=== PATIENT | female | born 1945 | race Caucasian/White ===

== ENCOUNTER 2017-05-02 22:44 | Emergency (ER) | payer MEDICARE ==
[~2017-05-02 22:44] MED LIST: Iopamidol 370 76% 100 ML VIAL ONE
[2017-05-02 23:50] LABS: Blood, Urine Negative (Negative); Clarity Slightly Cloudy (Clear); Glucose, Urine (Dipstick) Negative (Negative); Leukocyte Trace (Negative); Nitrite Negative (Negative); Protein, Urine (Dipstick) 30 mg/dL (Neg-Trace); Urobilinogen 0.2 mg/dL (0.2-1.0)
[2017-05-02 23:51] LABS: Bilirubin Negative (Negative)
[2017-05-03 00:18] LABS: #Basophils 0.1 thou/uL (0.0-0.2); #Lymphocytes 0.7 thou/uL (1.20-3.40); #Monocytes 0.6 thou/uL (0.11-0.59); #Neutrophils 8.7 thou/uL (1.40-6.50); %Basophils 0.5 % (0.0-1.0); %Eosinophils 0.5 % (0.0-10.0); %Lymphocytes 6.5 % (21.0-51.0); %Monocytes 5.8 % (0.0-10.0); %Neutrophils 86.8 % (42.0-75.0); Hemoglobin 11.8 g/dL (12.0-16.0); Mean Corpuscular HGB CONC 32.9 g/dL (32.0-36.0); Mean Corpuscular Hemoglobin 31.7 pg (27.0-31.0); Mean Corpuscular Volume 96.4 fl (81.0-99.0); Platelet Count 278 thou/uL (130-400); RBC Distribution Width 12.5 % (11.5-14.5); Red Blood Cell (RBC) Count 3.73 mill/uL (4.20-5.40)
[2017-05-03 00:19] LABS: Bacteria/HPF 2+ HPF (None Seen); RBC/HPF 0-3 HPF (0-3); Squamous Epithelial 0-3 HPF (0-3); Transitional Epithelial 0-3 HPF (0-3)
[2017-05-03 00:30] LABS: ALT (SGPT) 18 U/L (8-55); AST (SGOT) 36 U/L (5-34); Albumin 3.6 g/dL (3.4-4.8); Alkaline Phosphatase 43 U/L (40-150); Anion Gap 15 mmol/L (10-20); BUN (Urea Nitrogen) 26 mg/dL (9.8-20.1); Bilirubin, Total 0.5 mg/dL (0.2-1.2); Calc. Creatinine Clearance 0 mL/min (70-130); Calcium 9.4 mg/dL (7.8-10.44); Carbon Dioxide 22 mmol/L (23-31); Chloride 107 mmol/L (98-107); Estimated GFR-MDRD 53; Glucose 142 mg/dL (83-110); Lipase 36 U/L (8-78); Potassium 4.2 mmol/L (3.5-5.1); Protein, Total 6.6 g/dL (6.0-8.3); Sodium 140 mmol/L (136-145)
[2017-05-03] MEDS ORDERED: cefTRIAXone\\ROCEPHIN 2 GM VIAL ONE (01:49)
--- NOTE | 2017-05-03 09:54 | RAD ---
ABDOMEN: Date: 05-03-17 FINDINGS: A single view of the abdomen was presented. It is a portable upright study and does not show the ent dionna abdomen. No free air is seen. Gas is present in the stomach. From this one study alone one cannot draw any va lid conclusions. See CT report to follow. IMPRESSION: No free air seen. POS: HOME
--- NOTE | 2017-05-03 10:11 | CT ---
PRELIMINARY REPORT/[facility]/EMERGENCY AFTER HOURS PROCEDURE: EXAM: CT Abdomen and Pelvis With Intravenous Contrast EXAM DATE/TIME: Exam ordered 05/03/2017 12:53 AM CLINICAL HISTORY: 72 years old, female; Pain; Abdominal pain; Generalized; Patient HX: Pain across entire abd region x 1 day TECHNIQUE: Axial computed tomography images of the abdomen and pelvis with intravenous contrast. All CT scans a t this facility use one or more dose reduction techniques, viz.: automated exposure control; ma/kV a djustment per patient size (including targeted exams where dose is matched to indication; i.e. head); or iterative reconstruction technique. CONTRAST: 90 mL of ISO 370 administered intravenously. COMPARISON: No relevant prior studies available. FINDINGS: Lower thorax: No acute findings. ABDOMEN: Liver: No pneumatosis or portal/mesenteric venous gas. Unremarkable liver. Gallbladder and bile ducts: Unremarkable. No calcified stones. No ductal dilation. Pancreas: Unremarkable. No mass. No ductal dilation. Spleen: Unremarkable. No splenomegaly. Adrenals: Unremarkable. No mass. Kidneys and ureters: Chronic medical renal disease. No hydronephrosis. Stomach and bowel: Prior right hemicolectomy. High-grade distal small bowel obstruction with transit ion point in the anterior lower abdomen, presumably secondary to adhesion. There is inflammatory thi ckening of the wall of a loop of decompressed small bowel distal to the transition point, consistent with enteritis. Colonic diverticulosis. No diverticulitis. There are multiple small anterior abdomi nal wall hernias containing portions of the small bowel; however, these do not contribute as a cause of obstruction. Mesenteric edema and trace volume ascites in the mesentery associated with the dila jericho small bowel loops proximal to the obstruction can be attributed to high degree of obstruction an d presence of enteritis. Appendix: See above. PELVIS: Bladder: Unremarkable. No mass. Reproductive: Unremarkable as visualized. ABDOMEN and PELVIS: Intraperitoneal space: No pneumoperitoneum or abscess. Bones/joints: No acute fracture. No dislocation. Soft tissues: Unremarkable. Vasculature: See above. Lymph nodes: Unremarkable. No enlarged lymph nodes. IMPRESSION: 1. Prior right hemicolectomy. High-grade distal small bowel obstruction with transition point in the anterior lower abdomen, presumably secondary to adhesion. 2. There is inflammatory thickening of the wall of a loop of decompressed small bowel distal to the transition point, consistent with enteritis. Thank you for allowing us to participate in the care of your patient. Dictated and Authenticated by: Deion Temple MD 05/03/2017 1:24 AM Central Time ([place] \T\ [place]) FINAL REPORT CT ABDOMEN AND PELVIS WITH CONTRAST: Date: 05-03-[address] of the abdomen and pelvis was done using IV contrast only. Axial slices were acquired then sagittal and coronal reconstructions were done. FINDINGS: The lung bases are clear. The major finding on this study is dilation of small bowel consistent with a small bowel obstruction. The patient has had a prior right hemicolectomy. There is dilated small bowel down to a transition point. The possibility of an adhesion should be considered. There are mul tiple small hernias involving the anterior abdominal wall, most of which do have bowel within them, but these do not appear to contribute to the obstruction. One of the loops has somewhat thickened joby wel wall which could raise the question of enteritis. There are some small amounts of free fluid pre sent in the mesentery that are probably secondary to the high grade obstruction. The remaining colon shows no dilation. Diverticulosis without diverticulitis is present. The liver, spleen, pancreas, gallbladder, adrenal glands, and kidneys show no acute changes. The abd ominal aorta is normal in caliber but calcified. Extensive degenerative changes are seen in the spin e which also show scoliosis. IMPRESSION: 1. Findings consistent with a high grade small bowel obstruction. 2. Status post right hemicolectomy. 3. Several small abdominal wall hernias anteriorly, none of which contribute to the obstruction. 4. Some thickening of portions of the small bowel. This could be due to obstruction or enteritis. Findings in agreement with preliminary reading by CAIN. POS: HOME
== END 2017-05-03 02:35 | disposition short-term general hospital (02) ==
LOC: BURERS 22:44
DX: K56.60 Unspecified intestinal obstruction (principal); N39.0 Urinary tract infection, site not specified; D64.9 Anemia, unspecified; E78.5 Hyperlipidemia, unspecified; E11.40 Type 2 diabetes mellitus with diabetic neuropathy, unspecified; G89.29 Other chronic pain; I10 Essential (primary) hypertension; Z79.82 Long term (current) use of aspirin; Z79.899 Other long term (current) drug therapy
CPT/HCPCS: 36415; 51701; 74000; 74177; 80053; 81003; 81015; 83605; 83690; 85025; 87077; 87086; 87186; 96361; 96365; 96375; 96376; A4216; A4353; J0696; J2270

== ENCOUNTER 2017-06-03 16:57 | Inpatient (IN) | payer MEDICARE ==
[2017-06-03] MEDS: traMADol HCl 50 MG TAB PO PRN (23:29)
[2017-06-04] MEDS ORDERED: clonazePAM 0.5 MG TAB PO PRN (00:52)
[2017-06-04] MEDS: metFORMIN 500 MG TAB PO SCH ×3 (08:33→17:09)
[2017-06-04] MEDS: Atorvastatin Calcium 10 MG TAB PO SCH ×3 (08:34→12:45)
[2017-06-04] MEDS: Magnesium Oxide 400 MG TAB PO SCH ×3 (08:35→12:46)
[2017-06-04] MEDS: Multivitamin W/ Minerals 1 TAB PO SCH ×3 (08:35→12:54)
[2017-06-04] MEDS: Lisinopril 10 MG TAB PO SCH ×3 (08:36→12:53)
[2017-06-04] MEDS: Cholecalciferol (Vitamin D3) 400 UNITS TAB PO SCH ×3 (08:36→13:00)
[2017-06-04] MEDS: Pregabalin 50 MG CAP PO SCH ×4 (08:37→21:42)
[2017-06-04] MEDS: Enoxaparin Sodium 40 MG/0.4 ML SYRINGE SC SCH (08:38)
[2017-06-04] MEDS: traMADol HCl 50 MG TAB PO PRN ×2 (08:42→12:41)
--- NOTE | 2017-06-04 17:23 | HP ---
DATE OF ADMISSION: 06/03/2017 PRIMARY CARE PHYSICIAN: Out of town physician. ADMITTING PHYSICIAN: Allyson White M.D. CHIEF COMPLAINT: Inpatient shelter, physical, occupational, and wound therapy. HISTORY OF PRESENT ILLNESS: Ms. Lo is a 72-year-old female with a history of hyperten adolfo, CVA, diabetes mellitus, morbid obesity, and history of colon perforation in 1989, which she un derwent left hemicolectomy and a recent history of colonic obstruction with ulceration and perforati on requiring adhesiolysis and colonic resection of the small intestine. She had a surgery on 05/04 for colon resection under Dr. Knight. The patient developed postoperative confusion, pneumonia, re nal insufficiency, electrolyte imbalance, anemia, Clostridium difficile diarrhea. Her peritoneal cu lture showed polymicrobial nannette where she developed peritoneal abscess that required CT-guided juana alcantare percutaneously. The patient was placed on broad-spectrum antibiotics. She also failed her swa llow study that required placement of G-tube. The patient is severely physically deconditioned and requires physical and occupational therapy. She has a mid-abdominal wound measuring 6 x [address] miguel a serous fluid of about 200 mL, the patient is receiving wound VAC. The patient has signific ant depression, loss of motivation, and helplessness. She refused to participate in physical therap y prior to her transfer. She is being admitted for shelter care, physical, occupational the rapy for her decrease endurance, strength, unsteady gait, poor balance. She is maximum to total ass ist for transfer. PAST MEDICAL HISTORY: 1. Hypertension. 2. History of CVA. 3. Diabetes mellitus. 4. Hypercholesterolemia. 5. Morbid obesity. 6. History of colon resection for colon perforation. 7. Depression. PAST SURGICAL HISTORY: 1. Exploratory laparotomy for perforated diverticulitis. 2. Exploratory laparotomy for lysis of adhesions related to bowel obstruction. 3. Mesh repair of ventral incisional hernia. 4. Mesh removal for wound infection. 5. Bilateral total knee replacement. HOME MEDICATIONS: 1. Lyrica. 2. Furosemide. 3. Tricor. 4. Lisinopril. 5. Atorvastatin. 6. Tramadol. 7. Myrbetriq. 8. Iron and multivitamins. ALLERGIES: No known drug allergies. PERSONAL AND SOCIAL HISTORY: The patient is and has 3 children. She recently moved to [facility] from [place]. She denies alcohol, tobacco, or illicit drug use. FAMILY HISTORY: Noncontributory. REVIEW OF SYSTEMS: GENERAL: Positive for fatigue. Positive for weight loss. Positive for decreased appetite. CARDIOVASCULAR: Negative for chest pain. Negative for palpitation. Positive for lower extremity s welling. PULMONARY: Positive for shortness of breath, requiring oxygen to maintain sats above 94%. Denies c ough, denies tobacco use. GASTROINTESTINAL: Positive for abdominal pain. Positive for mid abdominal wound requiring wound [facility] C. Positive for dysphagia. Positive for diarrhea. Positive for constipation. ENDOCRINE: Negative for polyuria, polydipsia. Positive for heat and cold intolerance. GENITOURINARY: Negative for hematuria. Negative for dysuria. NEUROLOGIC: Positive for global weakness secondary to physical deconditioning related to prolonged hospitalization. Positive for history of stroke in the past. PSYCHIATRIC: Positive for depression. Positive for agitation. Positive for anxiety. Positive for loss of motivation. Positive for insomnia. PHYSICAL EXAMINATION: VITAL SIGNS: Blood pressure of 153/70, pulse of 111, temperature of 98.4, O2 sat 94% at 2 liters. GENERAL: The patient is awake, alert, not in respiratory distress. The patient is morbidly obese. HEENT: Normocephalic, atraumatic. Pupils are equally reactive to light. Dry mucous membrane. Neg ative for tonsillopharyngeal congestion. NECK: Supple. Negative for lymphadenopathy. Negative for JVD. CHEST AND LUNGS: Symmetrical expansion. Clear to auscultation bilaterally. HEART: Tachycardic, regular rate and rhythm. Negative for murmur, rubs, or gallops. ABDOMEN: Slightly distended, positive for mid abdominal wound with wound VAC. Positive for mild te nderness, diffuse. Bowel sounds present in all quadrants. EXTREMITIES: Equal range of motion of both upper and lower extremities. Significant weakness noted on all extremities. Pulses are 2+ and symmetrical. PSYCHIATRIC: Depressed affect. Negative for homicidal or suicidal ideation. NEUROLOGIC: Cannot assess due to significant weakness. LABORATORY DATA: Reviewed. ASSESSMENT: 1. Severe physical deconditioning due to prolonged hospitalization after colon resection and multip le other comorbid conditions. 2. History of small-bowel obstruction with colonic perforation and ulcers, status post adhesiolysis with small-bowel resection. 3. History of peritoneal abscess, status post CT-guided percutaneous drainage, now requiring wound VAC. 4. History of Clostridium difficile enterocolitis, resolved. 5. Chronic disease anemia. 6. Dysphagia, status post G-tube placement. 7. Hypertension. 8. Diabetes mellitus. 9. History of cerebrovascular accident. 10. Morbidly obese. 11. 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 PLAN: 1. Admitted to shelter facility: 2. Referred to PT, OT to evaluate and treat acute physical deconditioning, so the patient can safel y transition to home. 3. Wound Care Team to assist with care and wound status. 4. Dietary consultation to address and improve protein and caloric malnutrition. 5. Reconcile current medication. 6. Deep venous thrombosis prophylaxis. 7. Gastrointestinal prophylaxis. 8. Case management consult to address needs prior to her discharge.
[2017-06-04] MEDS: Acetaminophen 500 MG TAB PO SCH (21:42)
[2017-06-05] MEDS: Enoxaparin Sodium 40 MG/0.4 ML SYRINGE SC SCH (09:45)
[2017-06-05] MEDS: Pregabalin 50 MG CAP PO SCH ×2 (09:58→20:39)
[2017-06-05] MEDS: metFORMIN 500 MG TAB PO SCH ×2 (10:09→17:53)
[2017-06-05] MEDS: Lisinopril 10 MG TAB PO SCH (10:15)
[2017-06-05] MEDS: Atorvastatin Calcium 10 MG TAB PO SCH (10:16)
[2017-06-05] MEDS: Cholecalciferol (Vitamin D3) 400 UNITS TAB PO SCH (11:58)
[2017-06-05] MEDS: Magnesium Oxide 400 MG TAB PO SCH (12:02)
[2017-06-05] MEDS: Multivitamin W/ Minerals 1 TAB PO SCH (12:07)
[2017-06-05 18:54] LABS: Platelet Count 411 thou/uL (130-400)
[2017-06-05 18:58] LABS: Calc. Creatinine Clearance 179 mL/min (70-130); Estimated GFR-MDRD Greater than 90
[2017-06-05] MEDS: Acetaminophen 500 MG TAB PO SCH (20:42)
[2017-06-06 06:24] LABS: #Basophils 0.1 thou/uL (0.0-0.2); #Eosinphils 0.2 thou/uL (0.0-0.7); #Lymphocytes 1.6 thou/uL (1.20-3.40); #Monocytes 0.7 thou/uL (0.11-0.59); #Neutrophils 8.2 thou/uL (1.40-6.50); %Basophils 0.7 % (0.0-1.0); %Eosinophils 1.8 % (0.0-10.0); %Lymphocytes 14.6 % (21.0-51.0); %Monocytes 6.3 % (0.0-10.0); %Neutrophils 76.6 % (42.0-75.0); Mean Corpuscular HGB CONC 34.3 g/dL (32.0-36.0); Mean Corpuscular Hemoglobin 30.2 pg (27.0-31.0); Mean Corpuscular Volume 88.3 fl (81.0-99.0); Mean Platelet Volume 6.2 fL (7.4-10.4); Platelet Count 447 thou/uL (130-400); RBC Distribution Width 14.5 % (11.5-14.5); Red Blood Cell (RBC) Count 3.32 mill/uL (4.20-5.40); White Blood Cell (WBC) Count 10.7 thou/uL (4.8-10.8)
[2017-06-06 06:33] LABS: ALT (SGPT) 16 U/L (8-55); AST (SGOT) 19 U/L (5-34); Albumin 2.7 g/dL (3.4-4.8); Alkaline Phosphatase 127 U/L (40-150); Anion Gap 13 mmol/L (10-20); BUN (Urea Nitrogen) 13 mg/dL (9.8-20.1); Bilirubin, Total 0.4 mg/dL (0.2-1.2); Calc. Creatinine Clearance 166 mL/min (70-130); Calcium 9.8 mg/dL (7.8-10.44); Carbon Dioxide 29 mmol/L (23-31); Chloride 98 mmol/L (98-107); Estimated GFR-MDRD Greater than 90; Globulin 4.2 g/dL (2.4-3.5); Glucose 131 mg/dL (83-110); Potassium 4.7 mmol/L (3.5-5.1); Protein, Total 6.9 g/dL (6.0-8.3); Sodium 135 mmol/L (136-145)
[2017-06-06] MEDS: Pregabalin 50 MG CAP PO SCH ×2 (08:32→20:40)
[2017-06-06] MEDS: Lisinopril 10 MG TAB PO SCH (08:38)
--- NOTE | 2017-06-06 08:39 | CT ---
PRELIMINARY REPORT/[facility]/EMERGENCY AFTER HOURS PROCEDURE: EXAM: CT Abdomen and Pelvis With Intravenous Contrast EXAM DATE/TIME: Exam ordered 06/06/2017 4:11 AM CLINICAL HISTORY: 72 years old, female; Pain; Abdominal pain; Prior surgery; Surgery type: Bowel resection small, dangelo ia repair 05-31-17 TECHNIQUE: Axial computed tomography images of the abdomen and pelvis with intravenous contrast. COMPARISON: CT Abdomen Pelvis W Con 05/03/2017 12:53:19 AM FINDINGS: Lower thorax: There is consolidation of the LEFT lung base. ABDOMEN: Liver: There are no focal liver lesions present. Gallbladder and bile ducts: The gallbladder is normal. There is no evidence of biliary ductal dilati on. No calcified stones. Pancreas: The pancreas is normal. No ductal dilation. Spleen: The spleen demonstrates punctate calcifications, consistent with remote granulomatous organi sm exposure. Adrenals: The adrenal glands are normal. Kidneys and ureters: There may be a 2.5 cm mass extending from the interpolar region of the RIGHT ki dney, incompletely evaluated. The left kidney is normal. No hydronephrosis. Stomach and bowel: There is distention of the colon which is nonspecific but may represent colonic i leus. A gastrostomy tube is present within the stomach. Patient is post partial bowel resection. There is diffuse colonic dilatation No mucosal thickening. Appendix: No findings to suggest acute appendicitis. PELVIS: Bladder: The bladder is normal. Reproductive: The uterus is normal. ABDOMEN and PELVIS: Intraperitoneal space: Normal. No free air. No significant fluid collection. Bones/joints: No acute fracture. No dislocation. Soft tissues: Normal. Vasculature: Normal. No abdominal aortic aneurysm. Lymph nodes: Normal. No enlarged lymph nodes. IMPRESSION: 1. There is distention of the colon which is nonspecific but may represent colonic ileus. 2. There may be a 2.5 cm mass extending from the interpolar region of the RIGHT kidney, incompletely evaluated. 3. LEFT lower lobe consolidation may represent atelectasis or pneumonia in the appropriate clinical setting. Thank you for allowing us to participate in the care of your patient. Dictated and Authenticated by: Steven Laughlin MD 06/06/2017 5:02 AM Central Time ([place] \T\ [place]) FINAL REPORT CT ABDOMEN AND PELVIS WITH CONTRAST: Date: 06/06/17 Comparison is made with prior CT studies dated 05/26/17 and 05/20/17 done at [facility]. Axial s lices were acquired after giving IV contrast. Oral contrast was withheld. Coronal reconstructions we re done. FINDINGS: There is some dependent atelectasis in the right lung base. In the left lung base, there is a consol idation. I am presuming this to be pneumonia, though collapsed lung is a possibility. This is a new finding since the prior scan. The liver, spleen, pancreas, gallbladder, adrenal glands, and abdominal aorta show no change since t he recent scans. Of interest in the right kidney is a 3.6 cm widened area that is slightly rounded a nd hyperdense located in the mid portion of this kidney. On the prior two scans, one can see a littl e widening here, but it is more prominent today. The patient has had a recent renal ultrasound that only showed a small cyst in the mid portion of the right kidney. Perhaps it has become hemorrhagic. This might be worth further follow-up depending on the clinical history. The area is not seen well d ue to streak artifact. There is some generalized colonic distention. The overall pattern is a little more in keeping with a n ileus than obstruction. Some loops of small bowel show some slight dilation and air fluid levels a s well. No free air was noted. The fluid collection in the left flank at about the level of the lower pole of the left kidney has d efinitely decreased in size. It now measures about 3.9 cm in diameter. The thin, oblong fluid collec tion seen in the right anterior part of the abdominal cavity previously has resolved with only a few inflammatory changes left in the region. CT of the pelvis showed no pelvic masses, fluid collections, or other acute changes. IMPRESSION: 1. Findings suggestive of a left lower lobe pneumonia, a new finding in the last 2 weeks. 2. Mild generalized colonic distention which is not organized and is more likely an ileus than an o bstruction. 3. 3.8 cm fluid collection in the left flank that has definitely decreased in size since the CT. The collection in the right anterior abdomen has essentially resolved in the interval. 4. Prominent mass-like area in the middle third of the right kidney that is somewhat hyperdense. Si nce a recent renal ultrasound showed a cyst here, I have to wonder if it is now hemorrhagic. Neverth eless, the finding does cath the eye and is larger than what was described on the ultrasound. I yossi kasper an elective ultrasound of this kidney might be fruitful and should be done. Findings in substantial agreement with preliminary reading by [place]. POS: HOME
[2017-06-06] MEDS: FENOFIBRATE NANOCRYSTALLIZED 145 MG PO SCH (09:00)
[2017-06-06] MEDS: B12 PO SCH (09:00)
[2017-06-06] MEDS: IRON CARB PO SCH (09:00)
[2017-06-06] MEDS: GLUC PO SCH (09:00)
[2017-06-06] MEDS: Mirabegron [Myrbetriq] 50 MG PO SCH (09:00)
[2017-06-06] MEDS: DSS PO SCH (09:00)
[2017-06-06] MEDS: BUPROPION HCL 75 MG PO SCH ×2 (09:00→20:38)
[2017-06-06] MEDS: [UNRECOGNIZED DRUG - OTHER] PO SCH (09:00)
[2017-06-06] MEDS: traMADol HCl 50 MG TAB PO PRN (09:44)
[2017-06-06] MEDS: Enoxaparin Sodium 40 MG/0.4 ML SYRINGE SC SCH (09:45)
[2017-06-06] MEDS: Atorvastatin Calcium 10 MG TAB PO SCH (10:15)
[2017-06-06] MEDS: Cholecalciferol (Vitamin D3) 400 UNITS TAB PO SCH (10:16)
[2017-06-06 10:44] VITALS: BMI 40.2
[2017-06-06] MEDS ORDERED: VANCOMYCIN IVPB PRN (11:44)
[2017-06-06] MEDS: Multivitamin W/ Minerals 1 TAB PO SCH (12:08)
[2017-06-06] MEDS: Magnesium Oxide 400 MG TAB PO SCH (12:08)
[2017-06-06] MEDS: Vancomycin HCl 1 GM in Sodium Chloride 0.9% 250 ML 250 ML IVPB SCH (12:43)
[2017-06-06] MEDS: Meropenem 1 GM in Sodium Chloride 0.9% 100 ML IVPB SCH ×2 (15:24→22:16)
[2017-06-06] MEDS: Acetaminophen 500 MG TAB PO SCH (20:40)
[2017-06-07] MEDS: Vancomycin HCl 1 GM in Sodium Chloride 0.9% 250 ML 250 ML IVPB SCH (04:53)
[2017-06-07] MEDS: BUPROPION HCL 75 MG PO SCH ×3 (05:05→08:46)
[2017-06-07] MEDS: [UNRECOGNIZED DRUG - OTHER] PO SCH ×3 (05:05→11:09)
[2017-06-07] MEDS: GLUC PO SCH ×3 (05:05→11:09)
[2017-06-07] MEDS: IRON CARB PO SCH ×3 (05:05→11:09)
[2017-06-07] MEDS: FENOFIBRATE NANOCRYSTALLIZED 145 MG PO SCH ×3 (05:05→08:53)
[2017-06-07] MEDS: DSS PO SCH ×3 (05:05→11:09)
[2017-06-07] MEDS: B12 PO SCH ×3 (05:05→11:09)
[2017-06-07] MEDS: Mirabegron [Myrbetriq] 50 MG PO SCH ×3 (05:06→08:51)
[2017-06-07] MEDS: Meropenem 1 GM in Sodium Chloride 0.9% 100 ML IVPB SCH ×3 (06:17→21:25)
[2017-06-07] MEDS: Pregabalin 50 MG CAP PO SCH ×2 (08:43→20:32)
[2017-06-07] MEDS: Cholecalciferol (Vitamin D3) 400 UNITS TAB PO SCH (08:44)
[2017-06-07] MEDS: Multivitamin W/ Minerals 1 TAB PO SCH (08:44)
[2017-06-07] MEDS: Atorvastatin Calcium 10 MG TAB PO SCH (08:45)
[2017-06-07] MEDS: Lisinopril 10 MG TAB PO SCH (08:45)
[2017-06-07] MEDS: Magnesium Oxide 400 MG TAB PO SCH (08:45)
[2017-06-07] MEDS: Enoxaparin Sodium 40 MG/0.4 ML SYRINGE SC SCH (08:46)
[2017-06-07] MEDS ORDERED: FLU VACC QS2017-18 36 mo. & older 0.5 ML SYRINGE IM ONE (13:45)
[2017-06-07] MEDS: traMADol HCl 50 MG TAB PO PRN (13:46)
[2017-06-07] MEDS ORDERED: Vancomycin HCl 1 GM in Sodium Chloride 0.9% 250 ML 250 ML IVPB SCH (17:00)
[2017-06-07] MEDS ORDERED: Acetaminophen 500 MG TAB ONE (20:23)
[2017-06-07] MEDS: Acetaminophen 500 MG TAB PO SCH (20:34)
[2017-06-07] MEDS: Saccharomyces boulardii 250 MG CAP PO SCH (20:34)
[2017-06-07] MEDS: Vancomycin HCl 25 MG/ML Oral PO SCH (20:36)
[2017-06-08] MEDS: traMADol HCl 50 MG TAB PO PRN ×2 (05:30→14:19)
[2017-06-08] MEDS: Meropenem 1 GM in Sodium Chloride 0.9% 100 ML IVPB SCH ×3 (05:32→21:21)
[2017-06-08] MEDS ORDERED: metroNIDAZOLE 250 MG TAB PO SCH (09:00)
[2017-06-08] MEDS: Lisinopril 10 MG TAB PO SCH (10:22)
[2017-06-08] MEDS: Cholecalciferol (Vitamin D3) 400 UNITS TAB PO SCH (10:22)
[2017-06-08] MEDS: Atorvastatin Calcium 10 MG TAB PO SCH (10:22)
[2017-06-08] MEDS: Ferrous Sulfate 325 MG TAB PO SCH (10:23)
[2017-06-08] MEDS: Multivitamin W/ Minerals 1 TAB PO SCH (10:23)
[2017-06-08] MEDS: Magnesium Oxide 400 MG TAB PO SCH (10:23)
[2017-06-08] MEDS: Saccharomyces boulardii 250 MG CAP PO SCH ×2 (10:23→21:04)
[2017-06-08] MEDS: Mirabegron [Myrbetriq] 50 MG PO SCH (10:24)
[2017-06-08] MEDS: FENOFIBRATE NANOCRYSTALLIZED 145 MG PO SCH (10:25)
[2017-06-08] MEDS: Pregabalin 50 MG CAP PO SCH ×2 (10:27→21:02)
[2017-06-08] MEDS: Vancomycin HCl 25 MG/ML Oral PO SCH ×4 (10:28→21:10)
[2017-06-08] MEDS: Enoxaparin Sodium 40 MG/0.4 ML SYRINGE SC SCH (10:28)
[2017-06-08] MEDS: clonazePAM 0.5 MG TAB PO PRN (10:28)
[2017-06-08] MEDS: Acetaminophen 500 MG TAB PO SCH (21:02)
[2017-06-09] MEDS: Meropenem 1 GM in Sodium Chloride 0.9% 100 ML IVPB SCH ×3 (05:33→21:53)
[2017-06-09] MEDS: Pregabalin 50 MG CAP PO SCH ×2 (08:07→20:49)
[2017-06-09] MEDS: clonazePAM 0.5 MG TAB PO PRN (08:08)
[2017-06-09] MEDS: Vancomycin HCl 25 MG/ML Oral PO SCH ×4 (08:49→21:52)
[2017-06-09] MEDS: Enoxaparin Sodium 40 MG/0.4 ML SYRINGE SC SCH (08:51)
[2017-06-09] MEDS: Lisinopril 10 MG TAB PO SCH (08:53)
[2017-06-09] MEDS: Atorvastatin Calcium 10 MG TAB PO SCH (08:54)
[2017-06-09] MEDS: Mirabegron [Myrbetriq] 50 MG PO SCH (09:02)
[2017-06-09] MEDS: Magnesium Oxide 400 MG TAB PO SCH (09:02)
[2017-06-09] MEDS: FENOFIBRATE NANOCRYSTALLIZED 145 MG PO SCH (09:02)
[2017-06-09] MEDS: Multivitamin W/ Minerals 1 TAB PO SCH (09:02)
[2017-06-09] MEDS: Ferrous Sulfate 325 MG TAB PO SCH (09:02)
[2017-06-09] MEDS: Saccharomyces boulardii 250 MG CAP PO SCH ×2 (09:02→20:49)
[2017-06-09] MEDS: Cholecalciferol (Vitamin D3) 400 UNITS TAB PO SCH (09:02)
[2017-06-09] MEDS: Acetaminophen 500 MG TAB PO SCH (20:48)
[2017-06-10] MEDS: Meropenem 1 GM in Sodium Chloride 0.9% 100 ML IVPB SCH ×3 (05:47→21:09)
[2017-06-10] MEDS: Atorvastatin Calcium 10 MG TAB PO SCH (08:47)
[2017-06-10] MEDS: Multivitamin W/ Minerals 1 TAB PO SCH (08:47)
[2017-06-10] MEDS: Lisinopril 10 MG TAB PO SCH (08:47)
[2017-06-10] MEDS: Magnesium Oxide 400 MG TAB PO SCH (08:48)
[2017-06-10] MEDS: Saccharomyces boulardii 250 MG CAP PO SCH ×2 (08:48→21:08)
[2017-06-10] MEDS: Pregabalin 50 MG CAP PO SCH ×2 (08:48→21:08)
[2017-06-10] MEDS: Ferrous Sulfate 325 MG TAB PO SCH (08:48)
[2017-06-10] MEDS: Cholecalciferol (Vitamin D3) 400 UNITS TAB PO SCH (08:50)
[2017-06-10] MEDS: Vancomycin HCl 25 MG/ML Oral PO SCH ×4 (08:51→21:09)
[2017-06-10] MEDS: FENOFIBRATE NANOCRYSTALLIZED 145 MG PO SCH (08:58)
[2017-06-10] MEDS: Enoxaparin Sodium 40 MG/0.4 ML SYRINGE SC SCH (08:58)
[2017-06-10] MEDS: Mirabegron [Myrbetriq] 50 MG PO SCH (08:59)
[2017-06-10] MEDS: Acetaminophen 500 MG TAB PO SCH ×3 (11:00→21:12)
[2017-06-10 13:31] LABS: #Basophils 0.1 thou/uL (0.0-0.2); #Eosinphils 0.1 thou/uL (0.0-0.7); #Lymphocytes 1.7 thou/uL (1.20-3.40); #Monocytes 0.6 thou/uL (0.11-0.59); #Neutrophils 5.8 thou/uL (1.40-6.50); %Basophils 0.7 % (0.0-1.0); %Eosinophils 1.7 % (0.0-10.0); %Lymphocytes 20.2 % (21.0-51.0); %Monocytes 7.7 % (0.0-10.0); %Neutrophils 69.7 % (42.0-75.0); Hemoglobin 10.4 g/dL (12.0-16.0); Mean Corpuscular HGB CONC 32.8 g/dL (32.0-36.0); Mean Corpuscular Hemoglobin 29.8 pg (27.0-31.0); Mean Corpuscular Volume 90.9 fl (81.0-99.0); Mean Platelet Volume 6.2 fL (7.4-10.4); Platelet Count 487 thou/uL (130-400); RBC Distribution Width 15.8 % (11.5-14.5); Red Blood Cell (RBC) Count 3.49 mill/uL (4.20-5.40); White Blood Cell (WBC) Count 8.3 thou/uL (4.8-10.8)
[2017-06-10 13:32] LABS: ALT (SGPT) 13 U/L (8-55); AST (SGOT) 16 U/L (5-34); Albumin 2.9 g/dL (3.4-4.8); Alkaline Phosphatase 87 U/L (40-150); Anion Gap 15 mmol/L (10-20); BUN (Urea Nitrogen) 22 mg/dL (9.8-20.1); Bilirubin, Total 0.4 mg/dL (0.2-1.2); Calc. Creatinine Clearance 163 mL/min (70-130); Calcium 9.9 mg/dL (7.8-10.44); Carbon Dioxide 26 mmol/L (23-31); Chloride 98 mmol/L (98-107); Estimated GFR-MDRD Greater than 90; Globulin 4.4 g/dL (2.4-3.5); Glucose 147 mg/dL (83-110); Protein, Total 7.3 g/dL (6.0-8.3); Sodium 134 mmol/L (136-145)
[2017-06-11] MEDS: Acetaminophen 500 MG TAB PO SCH ×4 (03:24→21:13)
[2017-06-11] MEDS ORDERED: Meropenem 500 MG VIAL ONE (05:55)
[2017-06-11] MEDS: Meropenem 1 GM in Sodium Chloride 0.9% 100 ML IVPB SCH ×3 (06:07→21:15)
[2017-06-11] MEDS: Mirabegron [Myrbetriq] 50 MG PO SCH (08:59)
[2017-06-11] MEDS: FENOFIBRATE NANOCRYSTALLIZED 145 MG PO SCH (09:00)
[2017-06-11] MEDS: Enoxaparin Sodium 40 MG/0.4 ML SYRINGE SC SCH (09:02)
[2017-06-11] MEDS: Atorvastatin Calcium 10 MG TAB PO SCH (09:03)
[2017-06-11] MEDS: Magnesium Oxide 400 MG TAB PO SCH (09:03)
[2017-06-11] MEDS: Cholecalciferol (Vitamin D3) 400 UNITS TAB PO SCH (09:03)
[2017-06-11] MEDS: Lisinopril 10 MG TAB PO SCH (09:04)
[2017-06-11] MEDS: Pregabalin 50 MG CAP PO SCH ×2 (09:04→21:14)
[2017-06-11] MEDS: Saccharomyces boulardii 250 MG CAP PO SCH ×2 (09:04→21:13)
[2017-06-11] MEDS: Multivitamin W/ Minerals 1 TAB PO SCH (09:04)
[2017-06-11] MEDS: Vancomycin HCl 25 MG/ML Oral PO SCH ×4 (09:05→21:15)
[2017-06-11] MEDS: Ferrous Sulfate 325 MG TAB PO SCH (09:05)
[2017-06-11] MEDS ORDERED: Oxymetazoline HCl 0.05% ( 15 ML ) ONE (11:14)
[2017-06-11] MEDS ORDERED: Oxymetazoline HCl 0.05% ( 15 ML ) NASAL PRN (11:16)
[2017-06-11 11:40] LABS: #Basophils 0.1 thou/uL (0.0-0.2); #Eosinphils 0.1 thou/uL (0.0-0.7); #Lymphocytes 1.5 thou/uL (1.20-3.40); #Monocytes 0.6 thou/uL (0.11-0.59); #Neutrophils 3.9 thou/uL (1.40-6.50); %Basophils 0.9 % (0.0-1.0); %Eosinophils 1.9 % (0.0-10.0); %Lymphocytes 24.1 % (21.0-51.0); %Monocytes 9.8 % (0.0-10.0); %Neutrophils 63.2 % (42.0-75.0); Hemoglobin 10.2 g/dL (12.0-16.0); Mean Corpuscular HGB CONC 31.4 g/dL (32.0-36.0); Mean Corpuscular Hemoglobin 29.1 pg (27.0-31.0); Mean Corpuscular Volume 92.6 fl (81.0-99.0); Mean Platelet Volume 6.6 fL (7.4-10.4); Platelet Count 417 thou/uL (130-400); RBC Distribution Width 15.6 % (11.5-14.5); Red Blood Cell (RBC) Count 3.49 mill/uL (4.20-5.40); White Blood Cell (WBC) Count 6.2 thou/uL (4.8-10.8)
[2017-06-12] MEDS: Acetaminophen 500 MG TAB PO SCH ×4 (04:40→21:01)
[2017-06-12] MEDS: Meropenem 1 GM in Sodium Chloride 0.9% 100 ML IVPB SCH ×3 (05:54→21:23)
[2017-06-12] MEDS: Pregabalin 50 MG CAP PO SCH ×2 (08:29→21:02)
[2017-06-12] MEDS: Enoxaparin Sodium 40 MG/0.4 ML SYRINGE SC SCH (08:30)
[2017-06-12] MEDS: Lisinopril 10 MG TAB PO SCH (08:31)
[2017-06-12] MEDS: Atorvastatin Calcium 10 MG TAB PO SCH (08:31)
[2017-06-12] MEDS: FENOFIBRATE NANOCRYSTALLIZED 145 MG PO SCH (08:37)
[2017-06-12] MEDS: Mirabegron [Myrbetriq] 50 MG PO SCH (08:38)
[2017-06-12] MEDS: Ferrous Sulfate 325 MG TAB PO SCH (08:40)
[2017-06-12] MEDS: Magnesium Oxide 400 MG TAB PO SCH (08:40)
[2017-06-12] MEDS: Cholecalciferol (Vitamin D3) 400 UNITS TAB PO SCH (09:25)
[2017-06-12] MEDS: Multivitamin W/ Minerals 1 TAB PO SCH (09:25)
[2017-06-12] MEDS: Saccharomyces boulardii 250 MG CAP PO SCH ×2 (09:25→21:00)
[2017-06-12] MEDS: Vancomycin HCl 25 MG/ML Oral PO SCH ×4 (09:30→21:04)
[2017-06-13] MEDS: Acetaminophen 500 MG TAB PO SCH ×4 (04:31→21:11)
[2017-06-13] MEDS: Meropenem 1 GM in Sodium Chloride 0.9% 100 ML IVPB SCH ×3 (05:36→21:13)
[2017-06-13] MEDS: FENOFIBRATE NANOCRYSTALLIZED 145 MG PO SCH (08:29)
[2017-06-13] MEDS: Mirabegron [Myrbetriq] 50 MG PO SCH (08:29)
[2017-06-13] MEDS: Pregabalin 50 MG CAP PO SCH ×2 (08:30→21:11)
[2017-06-13] MEDS: Lisinopril 10 MG TAB PO SCH (08:31)
[2017-06-13] MEDS: Atorvastatin Calcium 10 MG TAB PO SCH (08:37)
[2017-06-13] MEDS: Magnesium Oxide 400 MG TAB PO SCH (08:38)
[2017-06-13] MEDS: Ferrous Sulfate 325 MG TAB PO SCH (08:39)
[2017-06-13] MEDS: Saccharomyces boulardii 250 MG CAP PO SCH ×2 (08:40→21:11)
[2017-06-13] MEDS: Cholecalciferol (Vitamin D3) 400 UNITS TAB PO SCH (08:40)
[2017-06-13] MEDS: Multivitamin W/ Minerals 1 TAB PO SCH (08:40)
[2017-06-13] MEDS: Vancomycin HCl 25 MG/ML Oral PO SCH ×4 (08:43→21:11)
[2017-06-13] MEDS: Enoxaparin Sodium 40 MG/0.4 ML SYRINGE SC SCH (08:44)
[2017-06-13] MEDS: traMADol HCl 50 MG TAB PO PRN ×2 (11:09→19:37)
[2017-06-13] MEDS ORDERED: Acetaminophen 500 MG TAB ONE (21:04)
--- NOTE | 2017-06-13 22:57 | PRG ---
DATE OF SERVICE: 06/09/2017 SUBJECTIVE: The patient has been having small amount of watery stools since her admission, she had increasing abdominal pain with distention on her left lower quadrant, she had nausea early this week . We did an emergency CT of the abdomen with contrast showing left lower lobe pneumonia, generalize d colonic distention likely secondary to ileus than obstruction. The results were discussed with Dr Giulia Knight and suggested to get tested for C. diff since she had a history of infection, Clostridium difficile colitis on her last admission at [facility], he also advised to do Fleet Enema to relieve th e ileus. After the CAT scan, patient passed significant amount of flatus and stool. She felt relie marcie. Her dysphagia has improved as well. She was started on soft diet and is now tolerating the pr esent diet. However, patient is not motivated to participate with her physical therapy, she require d total assistance, she can only tolerate bed exercises. She refused to do physical therapy today, complaining of severe pain on her lower back. OBJECTIVE: VITAL SIGNS: Blood pressure of 156/68, temperature of 97.1, heart rate of 101, respiratory rate of 20, O2 sat 93% on room air. GENERAL: Patient is alert, oriented, not in respiratory distress. Morbidly obese. HEENT: Normocephalic, atraumatic. Pupils equally reactive to light. NECK: Supple. Negative for lymphadenopathy. CHEST AND LUNGS: Symmetrical expansion. Clear to auscultation. HEART: Tachycardic, regular rhythm. Negative for murmur, rubs or gallops. ABDOMEN: Slightly distended with mild tenderness on the lower quadrant. Positive for bowel sounds in all quadrants, positive for wound VAC on the mid abdomen. EXTREMITIES: Equal range of motion, significant weakness on all extremities, pulses are 2+ and symm etrical. PSYCHIATRIC: Depressed mood. Negative for homicidal or suicidal ideation. NEUROLOGIC: Cannot assess due to significant weakness. LABORATORY DATA AND IMAGING: WBC of 10, hemoglobin of 10, hematocrit of 29, platelet count of 447. Comprehensive metabolic panel: Sodium of 134, BUN of 22, creatinine of 0.56, glucose of 147, GFR o f 90. Calcium of 9.9, total bilirubin of 0.4, AST of 16, ALT of 13. Positive for Clostridium diffi cile antigen and toxin. Abdominal CT on 06/06/2017 showed left lower lobe pneumonia, new finding co mparing to previous CT scan done on 05/03/2017. Generalized colonic distention secondary to ileus t holloway obstruction. Positive for 3.8 cm fluid collection on the left lung, decreasing in size compared to previous CT scan, collection on the right anterior lower abdomen had resolved. Presence of a ma ss-like area on the middle third of the right kidney, appeared hyperdense, possible cyst. May be he morrhagic in nature. ASSESSMENT: 1. Severe physical deconditioning secondary to prolonged hospitalization after colon resection and multiple other comorbid condition. 2. History of small-bowel obstruction with colonic perforation and ulcer, status post adhesiolysis and small bowel resection. 3. History of peritoneal abscess, status post CT-guided percutaneous drainage, now requiring wound VAC. 4. History of Clostridium difficile enterocolitis, active infection. 5. Left lower lobe pneumonia, hospital acquired. 6. Chronic disease anemia. 7. Dysphagia, status post G-tube placement. 8. Hypertension. 9. Diabetes mellitus, controlled. 10. History of cerebrovascular accident. 11. Morbidly obese. 12. 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 PLAN: 1. Continue IV treatment for left lower lobe pneumonia with meropenem. 2. Continue PT and OT to improve physical deconditioning, so patient can safely transition to home. 3. Continue Wound Care to assist with care of wound status. 4. Continue present feeding tube to help with protein and caloric malnutrition. 5. Continue deep venous thrombosis prophylaxis. 6. Initiate Zoloft to address her depression. 7. Gastrointestinal prophylaxis. 8. Case management to address needs prior to her discharge.
[2017-06-14] MEDS ORDERED: Acetaminophen 500 MG TAB ONE (03:46)
[2017-06-14] MEDS: Acetaminophen 500 MG TAB PO SCH ×4 (04:13→21:30)
[2017-06-14] MEDS: Meropenem 1 GM in Sodium Chloride 0.9% 100 ML IVPB SCH ×3 (06:09→21:31)
[2017-06-14] MEDS: Cholecalciferol (Vitamin D3) 400 UNITS TAB PO SCH (08:57)
[2017-06-14] MEDS: Multivitamin W/ Minerals 1 TAB PO SCH (08:57)
[2017-06-14] MEDS: Lisinopril 10 MG TAB PO SCH (08:57)
[2017-06-14] MEDS: Ferrous Sulfate 325 MG TAB PO SCH (08:57)
[2017-06-14] MEDS: Magnesium Oxide 400 MG TAB PO SCH (08:57)
[2017-06-14] MEDS: Enoxaparin Sodium 40 MG/0.4 ML SYRINGE SC SCH (08:58)
[2017-06-14] MEDS: Saccharomyces boulardii 250 MG CAP PO SCH ×2 (08:59→21:30)
[2017-06-14] MEDS: Atorvastatin Calcium 10 MG TAB PO SCH (08:59)
[2017-06-14] MEDS: Vancomycin HCl 25 MG/ML Oral PO SCH ×4 (08:59→21:31)
[2017-06-14] MEDS: Mirabegron [Myrbetriq] 50 MG PO SCH (09:00)
[2017-06-14] MEDS: FENOFIBRATE NANOCRYSTALLIZED 145 MG PO SCH (09:01)
[2017-06-14] MEDS: Pregabalin 50 MG CAP PO SCH ×2 (09:02→21:30)
[2017-06-15] MEDS: Acetaminophen 500 MG TAB PO SCH ×4 (04:11→21:17)
[2017-06-15] MEDS: Meropenem 1 GM in Sodium Chloride 0.9% 100 ML IVPB SCH ×3 (05:53→21:18)
[2017-06-15] MEDS: Saccharomyces boulardii 250 MG CAP PO SCH ×2 (09:21→21:17)
[2017-06-15] MEDS: Ferrous Sulfate 325 MG TAB PO SCH (09:22)
[2017-06-15] MEDS: Multivitamin W/ Minerals 1 TAB PO SCH (09:22)
[2017-06-15] MEDS: Cholecalciferol (Vitamin D3) 400 UNITS TAB PO SCH (09:22)
[2017-06-15] MEDS: Magnesium Oxide 400 MG TAB PO SCH (09:22)
[2017-06-15] MEDS: Atorvastatin Calcium 10 MG TAB PO SCH (09:22)
[2017-06-15] MEDS: Vancomycin HCl 25 MG/ML Oral PO SCH ×4 (09:22→21:17)
[2017-06-15] MEDS: Lisinopril 10 MG TAB PO SCH (09:23)
[2017-06-15] MEDS: FENOFIBRATE NANOCRYSTALLIZED 145 MG PO SCH (09:23)
[2017-06-15] MEDS: Mirabegron [Myrbetriq] 50 MG PO SCH (09:23)
[2017-06-15] MEDS: Pregabalin 50 MG CAP PO SCH ×2 (09:23→21:17)
[2017-06-15] MEDS: Enoxaparin Sodium 40 MG/0.4 ML SYRINGE SC SCH (09:24)
[2017-06-16] MEDS: Acetaminophen 500 MG TAB PO SCH ×4 (04:11→21:48)
[2017-06-16] MEDS: Meropenem 1 GM in Sodium Chloride 0.9% 100 ML IVPB SCH (06:22)
[2017-06-16] MEDS: Enoxaparin Sodium 40 MG/0.4 ML SYRINGE SC SCH (09:28)
[2017-06-16] MEDS: Cholecalciferol (Vitamin D3) 400 UNITS TAB PO SCH (09:29)
[2017-06-16] MEDS: Magnesium Oxide 400 MG TAB PO SCH (09:29)
[2017-06-16] MEDS: Pregabalin 50 MG CAP PO SCH ×2 (09:30→21:48)
[2017-06-16] MEDS: Atorvastatin Calcium 10 MG TAB PO SCH (09:30)
[2017-06-16] MEDS: Multivitamin W/ Minerals 1 TAB PO SCH (09:31)
[2017-06-16] MEDS: Lisinopril 10 MG TAB PO SCH (09:32)
[2017-06-16] MEDS: Ferrous Sulfate 325 MG TAB PO SCH (09:32)
[2017-06-16] MEDS: Saccharomyces boulardii 250 MG CAP PO SCH ×2 (09:32→21:49)
[2017-06-16] MEDS: Vancomycin HCl 25 MG/ML Oral PO SCH ×4 (09:36→21:47)
[2017-06-16] MEDS: FENOFIBRATE NANOCRYSTALLIZED 145 MG PO SCH (10:02)
[2017-06-16] MEDS: Mirabegron [Myrbetriq] 50 MG PO SCH (10:03)
--- NOTE | 2017-06-16 20:40 | PRG ---
DATE OF SERVICE: 06/13/2017 SUBJECTIVE: The patient had a severe right-sided nose bleed last Tuesday, pressure was applied; however, the patient spited significant amount of bright red blood, the nosebleed resolved after application of nasal tampon. She has had no further episodes. She participated with that therapy today. She was less anxious. She was complaining of arthritis on her back, dizziness, and weakness. Patient was able to tolerate to move at the end of the bed. She complained of cramps during the therapy. She was able to sit for 8 minutes. The patient continues to have fatigue and constant chronic back pain that apparently worsens with every movement. She expressed desire to get better, but afraid to move and reach things on her own. The patient continues to receive tube feedings at a rate of 55 mL per hour. She has decreased appetite and only takes small bites from her tray stated that she is full all the time. OBJECTIVE: VITAL SIGNS: Blood pressure of 141/64, temperature of 97.8, pulse rate of 104, respiratory rate 16, O2 sat at 94% at room air. GENERAL: Patient is alert, oriented, morbidly obese, not in respiratory distress. HEENT: Normocephalic, atraumatic. Pupils equal and reactive to light. Negative for tonsillopharyngeal congestion. Negative for signs of nasal trauma. NECK: Supple. Negative for lymphadenopathy. CHEST AND LUNGS: Symmetrical expansion. Clear to auscultation. HEART: Tachycardic, regular rhythm. Negative for murmur, rubs or gallops. ABDOMEN: Flat, normoactive bowel sounds, nontender. Positive for wound VAC on mid abdomen. EXTREMITIES: Equal range of motion, significant weakness on all extremities. Pulses are 2+ and symmetrical. PSYCHIATRIC: Depressed mood, negative for homicidal or suicidal ideation. NEUROLOGIC: Not assessed due to significant weakness. LABORATORY DATA: Hemoglobin of 10.2, hematocrit of 32.4, platelet count of 417. Comprehensive metabolic panel: Sodium of 134, potassium of 5, BUN of 22, creatinine of 0.56, glucose of 147. Albumin of 2.9, globulin of 4.4, albumin/ globulin ratio of 0.7. ASSESSMENT: 1. Severe physical deconditioning secondary to prolonged hospitalization after colon resection and with multiple other comorbid condition. 2. History of small bowel obstruction with colonic perforation and ulcer, status post adhesiolysis and small bowel resection. 3. History of peritoneal abscess, status post CT guided percutaneous drainage with wound VAC. 4. C. diff enterocolitis, active infection, currently on vancomycin. 5. Left lower lobe pneumonia, hospital acquired, stable, improving. 6. Chronic disease anemia. 7. Epistaxis, resolved after nasal packing, no further episodes. 8. Decreased appetite. 9. Dysphagia, status post G-tube placement, currently receiving tube feedings. 10. Hypertension. 11. Diabetes melitus, controlled. 12. History of cerebrovascular accident. 13. Morbid obesity. 14. 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 PLAN: 1. Continue IV treatment for left lower lobe pneumonia with meropenem to complete on 06/16/2017. 2. Continue present tube feedings, may need to lower the rate as appetite improves. 3. Continue PT, OT to improve physical deconditioning, so patient can safely transition to home. 4. Continue Wound Care to assist with care of wound status. 5. Continue deep venous thrombosis prophylaxis. 6. Gastrointestinal prophylaxis. 7. Case management to address needs prior to her discharge. MAGALIE
[2017-06-16] MEDS: clonazePAM 0.5 MG TAB PO PRN (21:48)
[2017-06-17] MEDS: Acetaminophen 500 MG TAB PO SCH ×4 (05:12→21:19)
[2017-06-17] MEDS: Lisinopril 10 MG TAB PO SCH (08:23)
[2017-06-17] MEDS: Ferrous Sulfate 325 MG TAB PO SCH (08:23)
[2017-06-17] MEDS: Enoxaparin Sodium 40 MG/0.4 ML SYRINGE SC SCH (08:23)
[2017-06-17] MEDS: Cholecalciferol (Vitamin D3) 400 UNITS TAB PO SCH (08:23)
[2017-06-17] MEDS: Atorvastatin Calcium 10 MG TAB PO SCH (08:23)
[2017-06-17] MEDS: Multivitamin W/ Minerals 1 TAB PO SCH (08:24)
[2017-06-17] MEDS: Mirabegron [Myrbetriq] 50 MG PO SCH (08:24)
[2017-06-17] MEDS: FENOFIBRATE NANOCRYSTALLIZED 145 MG PO SCH (08:24)
[2017-06-17] MEDS: Pregabalin 50 MG CAP PO SCH ×2 (08:24→21:19)
[2017-06-17] MEDS: Magnesium Oxide 400 MG TAB PO SCH (08:24)
[2017-06-17] MEDS: Saccharomyces boulardii 250 MG CAP PO SCH ×2 (08:26→21:19)
[2017-06-17] MEDS: Vancomycin HCl 25 MG/ML Oral PO SCH ×3 (08:26→17:12)
[2017-06-18] MEDS: Acetaminophen 500 MG TAB PO SCH ×4 (05:29→21:12)
[2017-06-18] MEDS: Lisinopril 10 MG TAB PO SCH (08:19)
[2017-06-18] MEDS: Magnesium Oxide 400 MG TAB PO SCH (08:19)
[2017-06-18] MEDS: Multivitamin W/ Minerals 1 TAB PO SCH (08:19)
[2017-06-18] MEDS: Pregabalin 50 MG CAP PO SCH ×2 (08:19→21:12)
[2017-06-18] MEDS: Enoxaparin Sodium 40 MG/0.4 ML SYRINGE SC SCH (08:19)
[2017-06-18] MEDS: Cholecalciferol (Vitamin D3) 400 UNITS TAB PO SCH (08:20)
[2017-06-18] MEDS: Atorvastatin Calcium 10 MG TAB PO SCH (08:20)
[2017-06-18] MEDS: Saccharomyces boulardii 250 MG CAP PO SCH ×2 (08:21→21:13)
[2017-06-18] MEDS: Mirabegron [Myrbetriq] 50 MG PO SCH (08:22)
[2017-06-18] MEDS: FENOFIBRATE NANOCRYSTALLIZED 145 MG PO SCH (08:23)
[2017-06-18] MEDS: Ferrous Sulfate 325 MG TAB PO SCH (08:24)
--- NOTE | 2017-06-18 16:37 | PRG ---
DATE OF SERVICE: 06/16/2017 SUBJECTIVE: The patient denies any major complaints, she continues to have chronic lower back pain that is worsened with any movement. She continues to get tube feedings and reports that she is not getting hungry, she takes 2-3 bites from her meals. Although, she is very afraid to cut her tube fe eding. She would like to try and eat her meals and hoping to have the tube taken out in the future. The patient is gradually progressing with her physical therapy. According to the physical therapy notes, she did well with her mobility, she sat at the end of the bed for 30 minutes without back alfaro pport and was able to walk forward with a cueing. She was very apprehensive and needed encouragemen t, she was able to transfer from sitting to standing using a rolling walker with minimal assistance, she is stand for about 15 seconds. She complained of right calf cramping for the first time and wa s unable to stand fully erect due to her back pain. The patient then started crying and refused to do any more procedure. OBJECTIVE: VITAL SIGNS: Blood pressure 132/76, temperature of 98.1, heart rate of 97, respiratory rate of 18, and O2 saturation 98%. GENERAL: The patient is alert, oriented, morbidly obese, not in respiratory distress, with flat aff ect. HEENT: Normocephalic, atraumatic. Pupils are equally reactive to light. Negative for tonsillophar yngeal congestion. NECK: Supple. Negative for lymphadenopathy. CHEST AND LUNGS: Symmetrical expansion. Clear to auscultation. HEART: Slightly tachycardic, regular rhythm. Negative for murmur. ABDOMEN: Flat, soft, nontender. Positive for wound VAC on mid abdomen. EXTREMITIES: Equal range of motion. Pulses are 2+ and symmetrical. PSYCHIATRIC: Depressed mood. Negative for homicidal or suicidal ideation. NEUROLOGIC: Not assessed due to her weakness. LABORATORY DATA: Reviewed. ASSESSMENT: 1. Severe physical deconditioning secondary to prolonged hospitalization after colon resection and multiple other comorbid condition. 2. Clostridium difficile enterocolitis active infection, status post vancomycin p.o. for 10 days. We will discontinue vancomycin today. 3. Left lower lobe pneumonia, hospital-acquired on day 9. We will discharge in the morning. 4. Chronic disease anemia. 5. Epistaxis, resolved after nasal packing. No further episodes. 6. Decreased appetite because of continuous tube feeding. We will discontinue the tube feeding. 7. Dysphagia, status post G-tube placement, resolved. 8. Hypertension. 9. Diabetes mellitus, diet controlled. 10. History of cerebrovascular accident. 11. Morbid obesity. 12. 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 PLAN: 1. Discontinue vancomycin p.o. 2. Discontinue meropenem in a.m. 3. Discontinue tube feedings and allow the patient to eat her meals. 4. Continue PT and OT to improve physical deconditioning, so this patient can safely transitioned t o home. 5. Continue Wound Care to assist with care of wound status. 6. Continue deep venous thrombosis prophylaxis. 7. Gastrointestinal prophylaxis. 8. Case management to address needs for prior to her discharge.
[2017-06-18] MEDS: clonazePAM 0.5 MG TAB PO PRN (22:10)
[2017-06-19] MEDS: Acetaminophen 500 MG TAB PO SCH ×4 (04:48→21:10)
[2017-06-19] MEDS: Atorvastatin Calcium 10 MG TAB PO SCH (08:49)
[2017-06-19] MEDS: Pregabalin 50 MG CAP PO SCH ×2 (08:49→21:10)
[2017-06-19] MEDS: Multivitamin W/ Minerals 1 TAB PO SCH (08:49)
[2017-06-19] MEDS: Ferrous Sulfate 325 MG TAB PO SCH (08:49)
[2017-06-19] MEDS: Lisinopril 10 MG TAB PO SCH (08:50)
[2017-06-19] MEDS: Cholecalciferol (Vitamin D3) 400 UNITS TAB PO SCH (08:50)
[2017-06-19] MEDS: Magnesium Oxide 400 MG TAB PO SCH (08:50)
[2017-06-19] MEDS: FENOFIBRATE NANOCRYSTALLIZED 145 MG PO SCH (08:51)
[2017-06-19] MEDS: Saccharomyces boulardii 250 MG CAP PO SCH ×2 (08:51→21:11)
[2017-06-19] MEDS: Mirabegron [Myrbetriq] 50 MG PO SCH (08:51)
[2017-06-19] MEDS: Enoxaparin Sodium 40 MG/0.4 ML SYRINGE SC SCH (08:52)
[2017-06-19] MEDS: traMADol HCl 50 MG TAB PO PRN (08:53)
[2017-06-20] MEDS: Acetaminophen 500 MG TAB PO SCH ×4 (04:32→21:11)
[2017-06-20] MEDS: Multivitamin W/ Minerals 1 TAB PO SCH (09:05)
[2017-06-20] MEDS: Pregabalin 50 MG CAP PO SCH ×2 (09:05→21:11)
[2017-06-20] MEDS: Saccharomyces boulardii 250 MG CAP PO SCH ×2 (09:05→21:11)
[2017-06-20] MEDS: Enoxaparin Sodium 40 MG/0.4 ML SYRINGE SC SCH (09:05)
[2017-06-20] MEDS: Ferrous Sulfate 325 MG TAB PO SCH (09:06)
[2017-06-20] MEDS: Magnesium Oxide 400 MG TAB PO SCH (09:06)
[2017-06-20] MEDS: Cholecalciferol (Vitamin D3) 400 UNITS TAB PO SCH (09:06)
[2017-06-20] MEDS: Lisinopril 10 MG TAB PO SCH (09:06)
[2017-06-20] MEDS: Atorvastatin Calcium 10 MG TAB PO SCH (09:07)
[2017-06-20] MEDS: traMADol HCl 50 MG TAB PO PRN (09:07)
[2017-06-20] MEDS: Mirabegron [Myrbetriq] 50 MG PO SCH (09:07)
[2017-06-20] MEDS: FENOFIBRATE NANOCRYSTALLIZED 145 MG PO SCH (09:07)
[2017-06-21] MEDS: Acetaminophen 500 MG TAB PO SCH ×4 (06:09→21:05)
[2017-06-21] MEDS: Magnesium Oxide 400 MG TAB PO SCH (08:51)
[2017-06-21] MEDS: Lisinopril 10 MG TAB PO SCH (08:52)
[2017-06-21] MEDS: Multivitamin W/ Minerals 1 TAB PO SCH (08:54)
[2017-06-21] MEDS: Atorvastatin Calcium 10 MG TAB PO SCH (08:54)
[2017-06-21] MEDS: Cholecalciferol (Vitamin D3) 400 UNITS TAB PO SCH (08:55)
[2017-06-21] MEDS: Ferrous Sulfate 325 MG TAB PO SCH (08:55)
[2017-06-21] MEDS: Pregabalin 50 MG CAP PO SCH ×2 (08:55→21:04)
[2017-06-21] MEDS: Saccharomyces boulardii 250 MG CAP PO SCH ×2 (08:56→21:04)
[2017-06-21] MEDS: Mirabegron [Myrbetriq] 50 MG PO SCH (08:56)
[2017-06-21] MEDS: FENOFIBRATE NANOCRYSTALLIZED 145 MG PO SCH (08:56)
[2017-06-21] MEDS: traMADol HCl 50 MG TAB PO PRN (08:57)
[2017-06-21] MEDS: Enoxaparin Sodium 40 MG/0.4 ML SYRINGE SC SCH (08:57)
[2017-06-21] MEDS ORDERED: Bacitracin Zinc 1 Packet ONE (15:55)
[2017-06-21] MEDS: Bacitracin Zinc 1 Packet TOP SCH ×2 (16:12→21:28)
[2017-06-22] MEDS: Acetaminophen 500 MG TAB PO SCH ×4 (04:42→21:13)
[2017-06-22] MEDS ORDERED: Bacitracin Zinc 1 Packet ONE ×2 (08:08→14:29)
[2017-06-22] MEDS: Mirabegron [Myrbetriq] 50 MG PO SCH (08:34)
[2017-06-22] MEDS: FENOFIBRATE NANOCRYSTALLIZED 145 MG PO SCH (08:35)
[2017-06-22] MEDS: Pregabalin 50 MG CAP PO SCH ×2 (08:35→21:14)
[2017-06-22] MEDS: Atorvastatin Calcium 10 MG TAB PO SCH (08:36)
[2017-06-22] MEDS: Lisinopril 10 MG TAB PO SCH (08:36)
[2017-06-22] MEDS: Saccharomyces boulardii 250 MG CAP PO SCH ×2 (08:38→21:13)
[2017-06-22] MEDS: Multivitamin W/ Minerals 1 TAB PO SCH (08:38)
[2017-06-22] MEDS: Magnesium Oxide 400 MG TAB PO SCH (08:38)
[2017-06-22] MEDS: Cholecalciferol (Vitamin D3) 400 UNITS TAB PO SCH (08:38)
[2017-06-22] MEDS: Ferrous Sulfate 325 MG TAB PO SCH (08:39)
[2017-06-22] MEDS: Enoxaparin Sodium 40 MG/0.4 ML SYRINGE SC SCH (08:39)
[2017-06-22] MEDS: Bacitracin Zinc 1 Packet TOP SCH ×3 (08:39→21:13)
[2017-06-22] MEDS: clonazePAM 0.5 MG TAB PO PRN (21:51)
[2017-06-22] MEDS: traMADol HCl 50 MG TAB PO PRN (21:51)
[2017-06-23] MEDS: Acetaminophen 500 MG TAB PO SCH ×4 (04:46→21:50)
[2017-06-23] MEDS: Atorvastatin Calcium 10 MG TAB PO SCH (09:11)
[2017-06-23] MEDS: Ferrous Sulfate 325 MG TAB PO SCH (09:11)
[2017-06-23] MEDS: Magnesium Oxide 400 MG TAB PO SCH (09:13)
[2017-06-23] MEDS: Pregabalin 50 MG CAP PO SCH ×2 (09:14→20:23)
[2017-06-23] MEDS: Saccharomyces boulardii 250 MG CAP PO SCH ×2 (09:14→20:23)
[2017-06-23] MEDS: Multivitamin W/ Minerals 1 TAB PO SCH (09:14)
[2017-06-23] MEDS: Lisinopril 10 MG TAB PO SCH (09:14)
[2017-06-23] MEDS: Bacitracin Zinc 1 Packet TOP SCH ×3 (09:15→20:30)
[2017-06-23] MEDS: Cholecalciferol (Vitamin D3) 400 UNITS TAB PO SCH (09:15)
[2017-06-23] MEDS: Enoxaparin Sodium 40 MG/0.4 ML SYRINGE SC SCH (09:15)
[2017-06-23] MEDS: Mirabegron [Myrbetriq] 50 MG PO SCH (09:16)
[2017-06-23] MEDS: FENOFIBRATE NANOCRYSTALLIZED 145 MG PO SCH (09:16)
[2017-06-24] MEDS: Acetaminophen 500 MG TAB PO SCH ×4 (04:57→21:20)
[2017-06-24] MEDS: Pregabalin 50 MG CAP PO SCH ×2 (09:13→21:20)
[2017-06-24] MEDS: traMADol HCl 50 MG TAB PO PRN ×2 (09:13→15:35)
[2017-06-24] MEDS: Multivitamin W/ Minerals 1 TAB PO SCH (09:14)
[2017-06-24] MEDS: Bacitracin Zinc 1 Packet TOP SCH ×3 (09:14→21:20)
[2017-06-24] MEDS: Atorvastatin Calcium 10 MG TAB PO SCH (09:14)
[2017-06-24] MEDS: Cholecalciferol (Vitamin D3) 400 UNITS TAB PO SCH (09:14)
[2017-06-24] MEDS: Ferrous Sulfate 325 MG TAB PO SCH (09:14)
[2017-06-24] MEDS: Saccharomyces boulardii 250 MG CAP PO SCH ×2 (09:14→21:20)
[2017-06-24] MEDS: Enoxaparin Sodium 40 MG/0.4 ML SYRINGE SC SCH (09:14)
[2017-06-24] MEDS: Magnesium Oxide 400 MG TAB PO SCH (09:14)
[2017-06-24] MEDS: Lisinopril 10 MG TAB PO SCH (09:15)
[2017-06-24] MEDS: FENOFIBRATE NANOCRYSTALLIZED 145 MG PO SCH (09:18)
[2017-06-24] MEDS: Mirabegron [Myrbetriq] 50 MG PO SCH (09:19)
[2017-06-24 11:28] LABS: Platelet Count 283 thou/uL (130-400)
[2017-06-25] MEDS: traMADol HCl 50 MG TAB PO PRN ×2 (00:45→09:22)
[2017-06-25] MEDS: clonazePAM 0.5 MG TAB PO PRN ×2 (01:41→21:44)
[2017-06-25] MEDS: Acetaminophen 500 MG TAB PO SCH ×4 (05:33→21:44)
[2017-06-25] MEDS: Mirabegron [Myrbetriq] 50 MG PO SCH (09:21)
[2017-06-25] MEDS: Magnesium Oxide 400 MG TAB PO SCH (09:23)
[2017-06-25] MEDS: Saccharomyces boulardii 250 MG CAP PO SCH ×2 (09:23→21:44)
[2017-06-25] MEDS: Multivitamin W/ Minerals 1 TAB PO SCH (09:23)
[2017-06-25] MEDS: Cholecalciferol (Vitamin D3) 400 UNITS TAB PO SCH (09:23)
[2017-06-25] MEDS: Ferrous Sulfate 325 MG TAB PO SCH (09:23)
[2017-06-25] MEDS: Atorvastatin Calcium 10 MG TAB PO SCH (09:23)
[2017-06-25] MEDS: Lisinopril 10 MG TAB PO SCH (09:23)
[2017-06-25] MEDS: Pregabalin 50 MG CAP PO SCH ×2 (09:24→21:44)
[2017-06-25] MEDS: Enoxaparin Sodium 40 MG/0.4 ML SYRINGE SC SCH (09:24)
[2017-06-25] MEDS: Bacitracin Zinc 1 Packet TOP SCH ×3 (09:24→21:44)
[2017-06-25] MEDS: FENOFIBRATE NANOCRYSTALLIZED 145 MG PO SCH (09:25)
[2017-06-26] MEDS: Acetaminophen 500 MG TAB PO SCH ×4 (04:24→21:27)
[2017-06-26 06:16] LABS: Platelet Count 288 thou/uL (130-400)
[2017-06-26] MEDS: Ferrous Sulfate 325 MG TAB PO SCH (09:38)
[2017-06-26] MEDS: Bacitracin Zinc 1 Packet TOP SCH ×2 (09:39→15:36)
[2017-06-26] MEDS: Pregabalin 50 MG CAP PO SCH ×2 (09:39→21:27)
[2017-06-26] MEDS: Lisinopril 10 MG TAB PO SCH (09:39)
[2017-06-26] MEDS: Saccharomyces boulardii 250 MG CAP PO SCH ×2 (09:39→21:27)
[2017-06-26] MEDS: Atorvastatin Calcium 10 MG TAB PO SCH (09:40)
[2017-06-26] MEDS: Multivitamin W/ Minerals 1 TAB PO SCH (09:40)
[2017-06-26] MEDS: Cholecalciferol (Vitamin D3) 400 UNITS TAB PO SCH (09:40)
[2017-06-26] MEDS: Enoxaparin Sodium 40 MG/0.4 ML SYRINGE SC SCH (09:40)
[2017-06-26] MEDS: traMADol HCl 50 MG TAB PO PRN ×2 (09:40→15:36)
[2017-06-26] MEDS: Magnesium Oxide 400 MG TAB PO SCH (09:40)
[2017-06-26] MEDS: Mirabegron [Myrbetriq] 50 MG PO SCH (09:41)
[2017-06-26] MEDS: FENOFIBRATE NANOCRYSTALLIZED 145 MG PO SCH (09:41)
[2017-06-26] MEDS: clonazePAM 0.5 MG TAB PO PRN (21:27)
[2017-06-27] MEDS: Acetaminophen 500 MG TAB PO SCH ×4 (06:14→21:34)
[2017-06-27] MEDS: Lisinopril 10 MG TAB PO SCH (08:58)
[2017-06-27] MEDS: Magnesium Oxide 400 MG TAB PO SCH (08:58)
[2017-06-27] MEDS: traMADol HCl 50 MG TAB PO PRN ×2 (08:58→15:53)
[2017-06-27] MEDS: Multivitamin W/ Minerals 1 TAB PO SCH (08:58)
[2017-06-27] MEDS: Atorvastatin Calcium 10 MG TAB PO SCH (08:59)
[2017-06-27] MEDS: Cholecalciferol (Vitamin D3) 400 UNITS TAB PO SCH (08:59)
[2017-06-27] MEDS: Pregabalin 50 MG CAP PO SCH ×2 (08:59→21:34)
[2017-06-27] MEDS: Saccharomyces boulardii 250 MG CAP PO SCH ×2 (08:59→21:34)
[2017-06-27] MEDS: Mirabegron [Myrbetriq] 50 MG PO SCH (08:59)
[2017-06-27] MEDS: Ferrous Sulfate 325 MG TAB PO SCH (08:59)
[2017-06-27] MEDS: FENOFIBRATE NANOCRYSTALLIZED 145 MG PO SCH (09:03)
[2017-06-27] MEDS: Enoxaparin Sodium 40 MG/0.4 ML SYRINGE SC SCH (09:03)
[2017-06-27] MEDS: clonazePAM 0.5 MG TAB PO PRN ×2 (21:34→21:43)
[2017-06-28] MEDS: Acetaminophen 500 MG TAB PO SCH ×4 (03:08→22:11)
[2017-06-28 06:16] LABS: Hemoglobin 9.4 g/dL (12.0-16.0); Platelet Count 306 thou/uL (130-400)
[2017-06-28] MEDS: Atorvastatin Calcium 10 MG TAB PO SCH (09:05)
[2017-06-28] MEDS: Saccharomyces boulardii 250 MG CAP PO SCH ×2 (09:06→22:11)
[2017-06-28] MEDS: Ferrous Sulfate 325 MG TAB PO SCH (09:06)
[2017-06-28] MEDS: Magnesium Oxide 400 MG TAB PO SCH (09:06)
[2017-06-28] MEDS: Pregabalin 50 MG CAP PO SCH ×2 (09:06→22:11)
[2017-06-28] MEDS: Cholecalciferol (Vitamin D3) 400 UNITS TAB PO SCH (09:06)
[2017-06-28] MEDS: Multivitamin W/ Minerals 1 TAB PO SCH (09:06)
[2017-06-28] MEDS: traMADol HCl 50 MG TAB PO PRN ×3 (09:07→20:17)
[2017-06-28] MEDS: Lisinopril 10 MG TAB PO SCH (09:07)
[2017-06-28] MEDS: FENOFIBRATE NANOCRYSTALLIZED 145 MG PO SCH (09:08)
[2017-06-28] MEDS: Enoxaparin Sodium 40 MG/0.4 ML SYRINGE SC SCH (09:08)
[2017-06-28] MEDS: Mirabegron [Myrbetriq] 50 MG PO SCH (09:13)
[2017-06-28] MEDS: metFORMIN 500 MG TAB PO SCH (17:14)
[2017-06-28] MEDS: clonazePAM 0.5 MG TAB PO PRN (22:11)
[2017-06-29] MEDS: Acetaminophen 500 MG TAB PO SCH ×4 (03:25→21:19)
[2017-06-29] MEDS: Enoxaparin Sodium 40 MG/0.4 ML SYRINGE SC SCH (09:35)
[2017-06-29] MEDS: Saccharomyces boulardii 250 MG CAP PO SCH ×2 (09:36→21:18)
[2017-06-29] MEDS: metFORMIN 500 MG TAB PO SCH ×2 (09:37→17:10)
[2017-06-29] MEDS: Multivitamin W/ Minerals 1 TAB PO SCH (09:37)
[2017-06-29] MEDS: Atorvastatin Calcium 10 MG TAB PO SCH (09:37)
[2017-06-29] MEDS: Pregabalin 50 MG CAP PO SCH ×2 (09:37→21:16)
[2017-06-29] MEDS: Magnesium Oxide 400 MG TAB PO SCH (09:38)
[2017-06-29] MEDS: Ferrous Sulfate 325 MG TAB PO SCH (09:38)
[2017-06-29] MEDS: Cholecalciferol (Vitamin D3) 400 UNITS TAB PO SCH (09:39)
[2017-06-29] MEDS: Lisinopril 10 MG TAB PO SCH (09:39)
[2017-06-29] MEDS: Mirabegron [Myrbetriq] 50 MG PO SCH (10:21)
[2017-06-29] MEDS: FENOFIBRATE NANOCRYSTALLIZED 145 MG PO SCH (10:23)
[2017-06-30] MEDS: traMADol HCl 50 MG TAB PO PRN ×2 (00:55→21:13)
[2017-06-30] MEDS: Acetaminophen 500 MG TAB PO SCH ×4 (03:21→21:11)
[2017-06-30 05:54] LABS: Hemoglobin 9.1 g/dL (12.0-16.0); Platelet Count 305 thou/uL (130-400)
[2017-06-30] MEDS: Enoxaparin Sodium 40 MG/0.4 ML SYRINGE SC SCH (08:48)
[2017-06-30] MEDS: Saccharomyces boulardii 250 MG CAP PO SCH ×2 (08:48→21:10)
[2017-06-30] MEDS: Mirabegron [Myrbetriq] 50 MG PO SCH (08:48)
[2017-06-30] MEDS: Magnesium Oxide 400 MG TAB PO SCH (08:48)
[2017-06-30] MEDS: Ferrous Sulfate 325 MG TAB PO SCH (08:49)
[2017-06-30] MEDS: Multivitamin W/ Minerals 1 TAB PO SCH (08:50)
[2017-06-30] MEDS: FENOFIBRATE NANOCRYSTALLIZED 145 MG PO SCH (08:50)
[2017-06-30] MEDS: Atorvastatin Calcium 10 MG TAB PO SCH (08:50)
[2017-06-30] MEDS: metFORMIN 500 MG TAB PO SCH ×2 (08:50→17:25)
[2017-06-30] MEDS: Cholecalciferol (Vitamin D3) 400 UNITS TAB PO SCH (08:50)
[2017-06-30] MEDS: Pregabalin 50 MG CAP PO SCH ×2 (08:50→21:10)
[2017-06-30] MEDS: Lisinopril 10 MG TAB PO SCH (08:51)
[2017-06-30] MEDS: clonazePAM 0.5 MG TAB PO PRN (21:11)
[2017-07-01] MEDS: Acetaminophen 500 MG TAB PO SCH ×4 (05:03→21:12)
[2017-07-01] MEDS: Mirabegron [Myrbetriq] 50 MG PO SCH (08:46)
[2017-07-01] MEDS: Ferrous Sulfate 325 MG TAB PO SCH (08:48)
[2017-07-01] MEDS: Multivitamin W/ Minerals 1 TAB PO SCH (08:48)
[2017-07-01] MEDS: metFORMIN 500 MG TAB PO SCH ×2 (08:48→17:18)
[2017-07-01] MEDS: Cholecalciferol (Vitamin D3) 400 UNITS TAB PO SCH (08:48)
[2017-07-01] MEDS: Pregabalin 50 MG CAP PO SCH ×2 (08:48→21:13)
[2017-07-01] MEDS: Atorvastatin Calcium 10 MG TAB PO SCH (08:48)
[2017-07-01] MEDS: Magnesium Oxide 400 MG TAB PO SCH (08:48)
[2017-07-01] MEDS: Saccharomyces boulardii 250 MG CAP PO SCH ×2 (08:48→21:13)
[2017-07-01] MEDS: Lisinopril 10 MG TAB PO SCH (08:50)
[2017-07-01] MEDS: FENOFIBRATE NANOCRYSTALLIZED 145 MG PO SCH (08:51)
[2017-07-01] MEDS: Enoxaparin Sodium 40 MG/0.4 ML SYRINGE SC SCH (08:51)
--- NOTE | 2017-07-01 17:10 | PRG ---
DATE OF SERVICE: 06/21/2017 SUBJECTIVE: The patient denies any major complaints. The patient is slowly improving, she continue s to progress every day. Her anxiety level is decreasing. She is not needing as much direction wit h her mobility. She is still unable to push herself from sitting to standing with diffusing her upp er extremity, she still requires minimal assistance when using rolling walker. However, her standin g tolerance had improved. Today, she stood for about 30 seconds. Her tube feeding was discontinued last Tuesday, the patient is eating better, she ate about 90% of her breakfast and other meals avera ging about 50%. She expressed concern to the nurse that she did not like the texture hence I was co ntacted and change the texture of her meals to regular. She stated that the foot is peeling and she is feeling a lot better. OBJECTIVE: VITAL SIGNS: Blood pressure 141/65, temperature of 98.8, pulse is 78, respiratory rate of 18, and 0 2 sat 96% on room air. GENERAL: The patient is alert and oriented, not in respiratory distress, in good spirits. HEENT: Normocephalic and atraumatic. Pupils are equally reactive to light. Negative for tonsillop haryngeal congestion. NECK: Supple. Negative for lymphadenopathy. CHEST AND LUNGS: Symmetrical expansion. Clear to auscultation. HEART: Regular rate and rhythm. Negative for murmur, rubs or gallops. ABDOMEN: Flat, soft, nontender, normoactive bowel sounds. Positive for wound VAC on mid abdomen. EXTREMITIES: Equal range of motion. Pulses are 2+ and symmetrical. PSYCHIATRIC: Improved moods. Negative for homicidal or suicidal ideation. LABORATORY DATA: Fasting blood glucose of 95. ASSESSMENT: 1. Severe physical deconditioning secondary to prolonged hospitalization after colon resection and multiple other comorbid conditions. 2. Clostridium difficile enterocolitis, status post treatment, improved. 3. Left lower lobe pneumonia, hospital acquired, improved. 4. Chronic disease anemia. 5. Epistaxis resolved after nasal packing. 6. Decreased appetite, improved, recently discontinued tube feeding. Diet, improving. 7. Dysphagia, status post G-tube placement. 8. Hypertension. 9. Diabetes meticulous diet controlled. 10. History of cerebrovascular accident. 11. Morbid obesity. 12. Major depression, improving. PLAN: 1. Continue with PT, OT to address physical deconditioning. 2. Continue regular textured meals. 3. Continue holding tube feedings. 4. Continue Wound Care to assist with care of wound status. 5. Continue deep venous prophylaxis with Lovenox. 6. Gastrointestinal prophylaxis. 7. Case management to address needs prior to her discharge.
--- NOTE | 2017-07-01 17:28 | PRG ---
DATE OF SERVICE: 06/30/2017 SUBJECTIVE: The patient is doing so well. is satisfied with her progress. The patient is tolerating her regular textured consistent carbohydrate diet. She consumes about 75% of her meal. Wound is improving. According to the nurse, the patient is offer bathroom and doing better. She wa s somewhat anxious with transfer without use of a rolling walker, but however, was able to follow st ep by step direction and was able to complete without issue. She is more confident standing with st andby assist without upper extremity support. Gait distance is somewhat still decreased due to fati brendan. Today, the patient had a shower with occupational therapy. She was able to transfer from a [facility] commode and wash her hair, upper body and upper legs. She denies any chest pain, shortness of breath or abdominal pain. OBJECTIVE: VITAL SIGNS: Blood pressure 132/60, temperature 97.9, pulse of 88, respiratory rate of 20, and O2 s at 100%. GENERAL: The patient is alert and oriented, not in respiratory distress. HEENT: Normocephalic. Pupils are equally reactive to light. NECK: Supple. Negative for lymphadenopathy. CHEST AND LUNGS: Symmetrical expansion. Clear to auscultation. HEART: Regular rate and rhythm. Negative for murmur. ABDOMEN: Flat, soft, nontender. Positive for wound VAC on mid abdomen. EXTREMITIES: Equal range of motion. Pupils are equally reactive to light. PSYCHIATRIC: Appropriate affect and demeanor. Negative for homicidal or suicidal ideation. NEUROLOGIC: Cranial nerves II-XII intact. LABORATORY: Reviewed. ASSESSMENT: 1. Severe physical deconditioning secondary to prolonged hospitalization after colon resection and multiple other comorbid condition, improving. 2. History of Clostridium difficile enterocolitis status post treatment with vancomycin for 10 days , resolved. 3. Left lower lobe pneumonia, hospital acquired, status post meropenem for 10 days, resolved. 4. Chronic disease anemia. 5. History of epistaxis x2 episodes resolved after nasal packing and pressure. 6. Decreased appetite status post placement of PEG tube, resolved. 7. Hypertension. 8. Diabetes mellitus, diet controlled. 9. History of cerebrovascular accident. 10. Morbid obesity. 11. Major depression, improving. PLAN: 1. Continue PT and OT to improve physical deconditioning. 2. Continue with regular textured meals. 3. Continue Wound Care to assist with care of wound status. 4. Continue deep venous prophylaxis. 5. Continue gastrointestinal prophylaxis. 6. Case management to address needs prior to her discharge.
[2017-07-01] MEDS: clonazePAM 0.5 MG TAB PO PRN (21:12)
[2017-07-01] MEDS: traMADol HCl 50 MG TAB PO PRN (21:12)
[2017-07-02] MEDS: traMADol HCl 50 MG TAB PO PRN ×2 (01:59→21:26)
[2017-07-02] MEDS: Acetaminophen 500 MG TAB PO SCH ×4 (05:50→21:26)
[2017-07-02] MEDS: Enoxaparin Sodium 40 MG/0.4 ML SYRINGE SC SCH (08:20)
[2017-07-02] MEDS: Pregabalin 50 MG CAP PO SCH ×2 (08:23→21:27)
[2017-07-02] MEDS: metFORMIN 500 MG TAB PO SCH ×2 (08:23→16:28)
[2017-07-02] MEDS: Magnesium Oxide 400 MG TAB PO SCH (08:23)
[2017-07-02] MEDS: Multivitamin W/ Minerals 1 TAB PO SCH (08:23)
[2017-07-02] MEDS: Atorvastatin Calcium 10 MG TAB PO SCH (08:23)
[2017-07-02] MEDS: Cholecalciferol (Vitamin D3) 400 UNITS TAB PO SCH (08:23)
[2017-07-02] MEDS: Ferrous Sulfate 325 MG TAB PO SCH (08:27)
[2017-07-02] MEDS: Saccharomyces boulardii 250 MG CAP PO SCH ×2 (08:27→21:26)
[2017-07-02] MEDS: Lisinopril 10 MG TAB PO SCH (08:28)
[2017-07-02] MEDS: Mirabegron [Myrbetriq] 50 MG PO SCH (08:36)
[2017-07-02] MEDS: FENOFIBRATE NANOCRYSTALLIZED 145 MG PO SCH (08:39)
[2017-07-02 20:16] LABS: Hemoglobin 9.1 g/dL (12.0-16.0); Platelet Count 292 thou/uL (130-400)
[2017-07-02] MEDS: clonazePAM 0.5 MG TAB PO PRN (21:26)
[2017-07-03] MEDS: Acetaminophen 500 MG TAB PO SCH ×4 (04:07→22:43)
[2017-07-03] MEDS: Mirabegron [Myrbetriq] 50 MG PO SCH (09:04)
[2017-07-03] MEDS: Saccharomyces boulardii 250 MG CAP PO SCH ×2 (09:04→20:56)
[2017-07-03] MEDS: Magnesium Oxide 400 MG TAB PO SCH (09:04)
[2017-07-03] MEDS: Multivitamin W/ Minerals 1 TAB PO SCH (09:04)
[2017-07-03] MEDS: Cholecalciferol (Vitamin D3) 400 UNITS TAB PO SCH (09:04)
[2017-07-03] MEDS: Atorvastatin Calcium 10 MG TAB PO SCH (09:05)
[2017-07-03] MEDS: Ferrous Sulfate 325 MG TAB PO SCH (09:05)
[2017-07-03] MEDS: metFORMIN 500 MG TAB PO SCH ×2 (09:05→16:42)
[2017-07-03] MEDS: Enoxaparin Sodium 40 MG/0.4 ML SYRINGE SC SCH (09:06)
[2017-07-03] MEDS: Lisinopril 10 MG TAB PO SCH (09:07)
[2017-07-03] MEDS: Pregabalin 50 MG CAP PO SCH ×2 (09:07→20:56)
[2017-07-03] MEDS: FENOFIBRATE NANOCRYSTALLIZED 145 MG PO SCH (09:08)
[2017-07-04] MEDS: Acetaminophen 500 MG TAB PO SCH ×4 (03:43→20:51)
[2017-07-04] MEDS ORDERED: Acetaminophen 500 MG TAB ONE (09:17)
[2017-07-04] MEDS: Pregabalin 50 MG CAP PO SCH ×2 (09:49→20:52)
[2017-07-04] MEDS: Magnesium Oxide 400 MG TAB PO SCH (09:50)
[2017-07-04] MEDS: Multivitamin W/ Minerals 1 TAB PO SCH (09:50)
[2017-07-04] MEDS: Saccharomyces boulardii 250 MG CAP PO SCH ×2 (09:50→20:50)
[2017-07-04] MEDS: metFORMIN 500 MG TAB PO SCH ×2 (09:50→18:05)
[2017-07-04] MEDS: Atorvastatin Calcium 10 MG TAB PO SCH (09:51)
[2017-07-04] MEDS: Lisinopril 10 MG TAB PO SCH (09:51)
[2017-07-04] MEDS: Ferrous Sulfate 325 MG TAB PO SCH (09:51)
[2017-07-04] MEDS: Mirabegron [Myrbetriq] 50 MG PO SCH (09:52)
[2017-07-04] MEDS: Enoxaparin Sodium 40 MG/0.4 ML SYRINGE SC SCH (09:52)
[2017-07-04] MEDS: Cholecalciferol (Vitamin D3) 400 UNITS TAB PO SCH (09:52)
[2017-07-04] MEDS: FENOFIBRATE NANOCRYSTALLIZED 145 MG PO SCH (09:53)
[2017-07-04] MEDS: traMADol HCl 50 MG TAB PO PRN ×3 (09:53→20:51)
[2017-07-04] MEDS: clonazePAM 0.5 MG TAB PO PRN (20:50)
[2017-07-05] MEDS: Acetaminophen 500 MG TAB PO SCH ×4 (05:18→21:09)
[2017-07-05] MEDS: metFORMIN 500 MG TAB PO SCH ×2 (09:04→17:50)
[2017-07-05] MEDS: Ferrous Sulfate 325 MG TAB PO SCH (09:05)
[2017-07-05] MEDS: Pregabalin 50 MG CAP PO SCH ×2 (09:05→21:09)
[2017-07-05] MEDS: Magnesium Oxide 400 MG TAB PO SCH (09:06)
[2017-07-05] MEDS: Lisinopril 10 MG TAB PO SCH (09:06)
[2017-07-05] MEDS: Atorvastatin Calcium 10 MG TAB PO SCH (09:08)
[2017-07-05] MEDS: Cholecalciferol (Vitamin D3) 400 UNITS TAB PO SCH (09:08)
[2017-07-05] MEDS: Multivitamin W/ Minerals 1 TAB PO SCH (09:08)
[2017-07-05] MEDS: traMADol HCl 50 MG TAB PO PRN ×2 (09:09→16:04)
[2017-07-05] MEDS: Saccharomyces boulardii 250 MG CAP PO SCH ×2 (09:09→21:09)
[2017-07-05] MEDS: Mirabegron [Myrbetriq] 50 MG PO SCH (09:09)
[2017-07-05] MEDS: FENOFIBRATE NANOCRYSTALLIZED 145 MG PO SCH (09:10)
[2017-07-05] MEDS: Enoxaparin Sodium 40 MG/0.4 ML SYRINGE SC SCH (09:10)
[2017-07-06] MEDS: traMADol HCl 50 MG TAB PO PRN ×2 (01:56→20:08)
[2017-07-06] MEDS: Acetaminophen 500 MG TAB PO SCH ×4 (05:19→21:15)
[2017-07-06 06:18] LABS: Hemoglobin 9.1 g/dL (12.0-16.0); Platelet Count 288 thou/uL (130-400)
[2017-07-06] MEDS: Enoxaparin Sodium 40 MG/0.4 ML SYRINGE SC SCH (09:03)
[2017-07-06] MEDS: Pregabalin 50 MG CAP PO SCH ×2 (09:05→21:15)
[2017-07-06] MEDS: Saccharomyces boulardii 250 MG CAP PO SCH ×2 (09:07→21:15)
[2017-07-06] MEDS: Multivitamin W/ Minerals 1 TAB PO SCH (09:07)
[2017-07-06] MEDS: Atorvastatin Calcium 10 MG TAB PO SCH (09:08)
[2017-07-06] MEDS: metFORMIN 500 MG TAB PO SCH ×2 (09:08→16:24)
[2017-07-06] MEDS: Lisinopril 10 MG TAB PO SCH (09:09)
[2017-07-06] MEDS: Cholecalciferol (Vitamin D3) 400 UNITS TAB PO SCH (09:09)
[2017-07-06] MEDS: Furosemide 20 MG TAB PO SCH (09:09)
[2017-07-06] MEDS: Magnesium Oxide 400 MG TAB PO SCH (09:10)
[2017-07-06] MEDS: Ferrous Sulfate 325 MG TAB PO SCH (09:13)
[2017-07-06] MEDS: Mirabegron [Myrbetriq] 50 MG PO SCH (09:15)
[2017-07-06] MEDS: FENOFIBRATE NANOCRYSTALLIZED 145 MG PO SCH (09:16)
[2017-07-06] MEDS: clonazePAM 0.5 MG TAB PO PRN (21:15)
[2017-07-07] MEDS: Acetaminophen 500 MG TAB PO SCH ×4 (03:58→21:17)
[2017-07-07] MEDS: traMADol HCl 50 MG TAB PO PRN ×2 (03:58→21:17)
[2017-07-07] MEDS: metFORMIN 500 MG TAB PO SCH ×2 (08:56→16:45)
[2017-07-07] MEDS: Atorvastatin Calcium 10 MG TAB PO SCH (08:57)
[2017-07-07] MEDS: Cholecalciferol (Vitamin D3) 400 UNITS TAB PO SCH (08:57)
[2017-07-07] MEDS: Ferrous Sulfate 325 MG TAB PO SCH (08:57)
[2017-07-07] MEDS: Multivitamin W/ Minerals 1 TAB PO SCH (08:58)
[2017-07-07] MEDS: Furosemide 20 MG TAB PO SCH (08:58)
[2017-07-07] MEDS: Saccharomyces boulardii 250 MG CAP PO SCH ×2 (08:58→21:18)
[2017-07-07] MEDS: Magnesium Oxide 400 MG TAB PO SCH (08:58)
[2017-07-07] MEDS: FENOFIBRATE NANOCRYSTALLIZED 145 MG PO SCH (08:58)
[2017-07-07] MEDS: Mirabegron [Myrbetriq] 50 MG PO SCH (08:59)
[2017-07-07] MEDS: Pregabalin 50 MG CAP PO SCH ×2 (09:00→21:17)
[2017-07-07] MEDS: Enoxaparin Sodium 40 MG/0.4 ML SYRINGE SC SCH (09:00)
[2017-07-07] MEDS: Lisinopril 10 MG TAB PO SCH (09:02)
[2017-07-07] MEDS: clonazePAM 0.5 MG TAB PO PRN (21:18)
[2017-07-08] MEDS: Acetaminophen 500 MG TAB PO SCH ×4 (05:20→20:40)
[2017-07-08 05:40] LABS: Hemoglobin 8.9 g/dL (12.0-16.0); Platelet Count 289 thou/uL (130-400)
[2017-07-08] MEDS: Multivitamin W/ Minerals 1 TAB PO SCH (08:15)
[2017-07-08] MEDS: Cholecalciferol (Vitamin D3) 400 UNITS TAB PO SCH (08:16)
[2017-07-08] MEDS: Magnesium Oxide 400 MG TAB PO SCH (08:16)
[2017-07-08] MEDS: metFORMIN 500 MG TAB PO SCH ×2 (08:16→17:22)
[2017-07-08] MEDS: Furosemide 20 MG TAB PO SCH (08:17)
[2017-07-08] MEDS: Saccharomyces boulardii 250 MG CAP PO SCH ×2 (08:17→20:41)
[2017-07-08] MEDS: Atorvastatin Calcium 10 MG TAB PO SCH (08:18)
[2017-07-08] MEDS: Ferrous Sulfate 325 MG TAB PO SCH (08:18)
[2017-07-08] MEDS: Lisinopril 10 MG TAB PO SCH (08:20)
[2017-07-08] MEDS: Enoxaparin Sodium 40 MG/0.4 ML SYRINGE SC SCH (08:20)
[2017-07-08] MEDS: Pregabalin 50 MG CAP PO SCH ×2 (08:21→20:40)
[2017-07-08] MEDS: Mirabegron [Myrbetriq] 50 MG PO SCH (08:22)
[2017-07-08] MEDS: FENOFIBRATE NANOCRYSTALLIZED 145 MG PO SCH (08:23)
[2017-07-08] MEDS: traMADol HCl 50 MG TAB PO PRN (20:40)
[2017-07-08] MEDS ORDERED: Acetaminophen 325 MG TAB ONE (22:38)
[2017-07-09] MEDS: Acetaminophen 500 MG TAB PO SCH ×4 (04:57→21:25)
[2017-07-09] MEDS: Mirabegron [Myrbetriq] 50 MG PO SCH (08:37)
[2017-07-09] MEDS: FENOFIBRATE NANOCRYSTALLIZED 145 MG PO SCH (08:38)
[2017-07-09] MEDS: Multivitamin W/ Minerals 1 TAB PO SCH (08:39)
[2017-07-09] MEDS: Saccharomyces boulardii 250 MG CAP PO SCH ×2 (08:41→20:43)
[2017-07-09] MEDS: Furosemide 20 MG TAB PO SCH (08:41)
[2017-07-09] MEDS: Cholecalciferol (Vitamin D3) 400 UNITS TAB PO SCH (08:41)
[2017-07-09] MEDS: Lisinopril 10 MG TAB PO SCH (08:41)
[2017-07-09] MEDS: Pregabalin 50 MG CAP PO SCH ×2 (08:42→20:43)
[2017-07-09] MEDS: Atorvastatin Calcium 10 MG TAB PO SCH (08:43)
[2017-07-09] MEDS: Ferrous Sulfate 325 MG TAB PO SCH (08:43)
[2017-07-09] MEDS: Magnesium Oxide 400 MG TAB PO SCH (08:43)
[2017-07-09] MEDS: Enoxaparin Sodium 40 MG/0.4 ML SYRINGE SC SCH (08:44)
[2017-07-09] MEDS: metFORMIN 500 MG TAB PO SCH ×2 (08:44→16:42)
[2017-07-10] MEDS: Acetaminophen 500 MG TAB PO SCH ×4 (03:52→21:03)
[2017-07-10 05:12] LABS: Hemoglobin 9.3 g/dL (12.0-16.0); Platelet Count 291 thou/uL (130-400)
[2017-07-10] MEDS: Saccharomyces boulardii 250 MG CAP PO SCH ×2 (08:47→21:03)
[2017-07-10] MEDS: Pregabalin 50 MG CAP PO SCH ×2 (08:47→21:04)
[2017-07-10] MEDS: Cholecalciferol (Vitamin D3) 400 UNITS TAB PO SCH (08:47)
[2017-07-10] MEDS: Magnesium Oxide 400 MG TAB PO SCH (08:48)
[2017-07-10] MEDS: Atorvastatin Calcium 10 MG TAB PO SCH (08:48)
[2017-07-10] MEDS: Furosemide 20 MG TAB PO SCH (08:48)
[2017-07-10] MEDS: Ferrous Sulfate 325 MG TAB PO SCH (08:48)
[2017-07-10] MEDS: metFORMIN 500 MG TAB PO SCH ×2 (08:48→17:37)
[2017-07-10] MEDS: Multivitamin W/ Minerals 1 TAB PO SCH (08:48)
[2017-07-10] MEDS: FENOFIBRATE NANOCRYSTALLIZED 145 MG PO SCH (08:49)
[2017-07-10] MEDS: Enoxaparin Sodium 40 MG/0.4 ML SYRINGE SC SCH (08:49)
[2017-07-10] MEDS: Lisinopril 10 MG TAB PO SCH (08:49)
[2017-07-10] MEDS: Mirabegron [Myrbetriq] 50 MG PO SCH (08:50)
[2017-07-11] MEDS: Acetaminophen 500 MG TAB PO SCH ×4 (05:24→21:13)
[2017-07-11] MEDS: Pregabalin 50 MG CAP PO SCH ×2 (08:43→21:15)
[2017-07-11] MEDS: Atorvastatin Calcium 10 MG TAB PO SCH (08:44)
[2017-07-11] MEDS: Multivitamin W/ Minerals 1 TAB PO SCH (08:44)
[2017-07-11] MEDS: Magnesium Oxide 400 MG TAB PO SCH (08:44)
[2017-07-11] MEDS: metFORMIN 500 MG TAB PO SCH ×2 (08:45→17:10)
[2017-07-11] MEDS: Furosemide 20 MG TAB PO SCH (08:45)
[2017-07-11] MEDS: Lisinopril 10 MG TAB PO SCH (08:45)
[2017-07-11] MEDS: Cholecalciferol (Vitamin D3) 400 UNITS TAB PO SCH (08:45)
[2017-07-11] MEDS: FENOFIBRATE NANOCRYSTALLIZED 145 MG PO SCH (08:46)
[2017-07-11] MEDS: Ferrous Sulfate 325 MG TAB PO SCH (08:46)
[2017-07-11] MEDS: Saccharomyces boulardii 250 MG CAP PO SCH ×2 (08:46→21:15)
[2017-07-11] MEDS: Mirabegron [Myrbetriq] 50 MG PO SCH (08:47)
[2017-07-11] MEDS: Enoxaparin Sodium 40 MG/0.4 ML SYRINGE SC SCH (08:52)
[2017-07-11] MEDS: traMADol HCl 50 MG TAB PO PRN ×2 (10:04→21:13)
[2017-07-11 16:07] LABS: #Basophils 0.1 thou/uL (0.0-0.2); #Eosinphils 0.1 thou/uL (0.0-0.7); #Lymphocytes 2.1 thou/uL (1.20-3.40); #Monocytes 0.4 thou/uL (0.11-0.59); #Neutrophils 3.3 thou/uL (1.40-6.50); %Basophils 1.2 % (0.0-1.0); %Lymphocytes 34.7 % (21.0-51.0); %Monocytes 6.7 % (0.0-10.0); %Neutrophils 55.5 % (42.0-75.0); Hemoglobin 10.7 g/dL (12.0-16.0); Mean Corpuscular HGB CONC 32.2 g/dL (32.0-36.0); Mean Corpuscular Hemoglobin 30.5 pg (27.0-31.0); Mean Corpuscular Volume 94.7 fl (81.0-99.0); Mean Platelet Volume 5.8 fL (7.4-10.4); Platelet Count 341 thou/uL (130-400); RBC Distribution Width 14.9 % (11.5-14.5)
[2017-07-12] MEDS: Acetaminophen 500 MG TAB PO SCH ×4 (04:13→21:17)
[2017-07-12 05:24] LABS: Hemoglobin 9.2 g/dL (12.0-16.0); Platelet Count 263 thou/uL (130-400)
[2017-07-12] MEDS: metFORMIN 500 MG TAB PO SCH ×2 (08:37→17:32)
[2017-07-12] MEDS: Lisinopril 10 MG TAB PO SCH (08:38)
[2017-07-12] MEDS: Magnesium Oxide 400 MG TAB PO SCH (08:38)
[2017-07-12] MEDS: Pregabalin 50 MG CAP PO SCH ×2 (08:38→21:17)
[2017-07-12] MEDS: Multivitamin W/ Minerals 1 TAB PO SCH (08:38)
[2017-07-12] MEDS: Atorvastatin Calcium 10 MG TAB PO SCH (08:38)
[2017-07-12] MEDS: Furosemide 20 MG TAB PO SCH (08:38)
[2017-07-12] MEDS: Cholecalciferol (Vitamin D3) 400 UNITS TAB PO SCH (08:38)
[2017-07-12] MEDS: Ferrous Sulfate 325 MG TAB PO SCH (08:39)
[2017-07-12] MEDS: Saccharomyces boulardii 250 MG CAP PO SCH ×2 (08:39→21:16)
[2017-07-12] MEDS: Mirabegron [Myrbetriq] 50 MG PO SCH (08:39)
[2017-07-12] MEDS: FENOFIBRATE NANOCRYSTALLIZED 145 MG PO SCH (08:39)
[2017-07-12] MEDS: Enoxaparin Sodium 40 MG/0.4 ML SYRINGE SC SCH (08:44)
[2017-07-12] MEDS: traMADol HCl 50 MG TAB PO PRN ×2 (10:12→21:16)
[2017-07-13] MEDS: Acetaminophen 500 MG TAB PO SCH ×4 (04:08→21:54)
[2017-07-13] MEDS: Pregabalin 50 MG CAP PO SCH ×2 (08:28→21:55)
[2017-07-13] MEDS: Enoxaparin Sodium 40 MG/0.4 ML SYRINGE SC SCH (08:28)
[2017-07-13] MEDS: metFORMIN 500 MG TAB PO SCH ×2 (08:29→17:29)
[2017-07-13] MEDS: Lisinopril 10 MG TAB PO SCH (08:29)
[2017-07-13] MEDS: Mirabegron [Myrbetriq] 50 MG PO SCH (14:20)
[2017-07-13] MEDS: FENOFIBRATE NANOCRYSTALLIZED 145 MG PO SCH (14:20)
[2017-07-13] MEDS: Ferrous Sulfate 325 MG TAB PO SCH (14:22)
[2017-07-13] MEDS: Atorvastatin Calcium 10 MG TAB PO SCH (14:23)
[2017-07-13] MEDS: Cholecalciferol (Vitamin D3) 400 UNITS TAB PO SCH (14:23)
[2017-07-13] MEDS: Magnesium Oxide 400 MG TAB PO SCH (14:23)
[2017-07-13] MEDS: Multivitamin W/ Minerals 1 TAB PO SCH (14:23)
[2017-07-13] MEDS: Saccharomyces boulardii 250 MG CAP PO SCH ×2 (14:24→21:56)
[2017-07-13] MEDS: Furosemide 20 MG TAB PO SCH (14:24)
[2017-07-13] MEDS: traMADol HCl 50 MG TAB PO PRN (21:55)
[2017-07-14] MEDS: Acetaminophen 500 MG TAB PO SCH ×2 (04:07→09:33)
[2017-07-14 06:04] LABS: Hemoglobin 9.6 g/dL (12.0-16.0); Platelet Count 263 thou/uL (130-400)
[2017-07-14 06:14] VITALS: TEMP 97.3
[2017-07-14] MEDS: Enoxaparin Sodium 40 MG/0.4 ML SYRINGE SC SCH (08:30)
[2017-07-14] MEDS: Furosemide 20 MG TAB PO SCH (08:33)
[2017-07-14] MEDS: Saccharomyces boulardii 250 MG CAP PO SCH (08:33)
[2017-07-14] MEDS: Atorvastatin Calcium 10 MG TAB PO SCH (08:33)
[2017-07-14] MEDS: Pregabalin 50 MG CAP PO SCH (08:34)
[2017-07-14] MEDS: Cholecalciferol (Vitamin D3) 400 UNITS TAB PO SCH (08:34)
[2017-07-14] MEDS: metFORMIN 500 MG TAB PO SCH (08:35)
[2017-07-14] MEDS: Lisinopril 10 MG TAB PO SCH (08:35)
[2017-07-14] MEDS: Magnesium Oxide 400 MG TAB PO SCH (08:35)
[2017-07-14] MEDS: Multivitamin W/ Minerals 1 TAB PO SCH (08:35)
[2017-07-14] MEDS: Ferrous Sulfate 325 MG TAB PO SCH (08:36)
[2017-07-14] MEDS: Mirabegron [Myrbetriq] 50 MG PO SCH (08:39)
[2017-07-14] MEDS: FENOFIBRATE NANOCRYSTALLIZED 145 MG PO SCH (08:39)
[2017-07-14 08:41] VITALS: BP 117/56
== END 2017-07-14 11:42 | disposition home health service (06) | DRG 388 ==
LOC: BURMED 16:57 → UNDOADMIN 20:51 → BURMED 20:51 → UNDOADMIN 06-24 12:46 → BURMED 06-24 12:47
PROVIDERS: ADMIT Family Medicine; ATTEND Family Medicine
DX: K56.609 Unspecified intestinal obstruction, unspecified as to partial versus complete obstruction (principal); J18.9 Pneumonia, unspecified organism; E46 Unspecified protein-calorie malnutrition; E11.8 Type 2 diabetes mellitus with unspecified complications; Z68.41 Body mass index [BMI] 40.0-44.9, adult; R13.10 Dysphagia, unspecified; E66.01 Morbid (severe) obesity due to excess calories; A04.71 Enterocolitis due to Clostridium difficile, recurrent; D64.9 Anemia, unspecified; Z93.1 Gastrostomy status; I10 Essential (primary) hypertension; Z90.49 Acquired absence of other specified parts of digestive tract; Z98.890 Other specified postprocedural states; Z48.815 Encounter for surgical aftercare following surgery on the digestive system; Y95 Nosocomial condition; F32.9 Major depressive disorder, single episode, unspecified; F41.9 Anxiety disorder, unspecified; Z86.73 Personal history of transient ischemic attack (TIA), and cerebral infarction without residual deficits; R04.0 Epistaxis; E78.00 Pure hypercholesterolemia, unspecified; Z79.84 Long term (current) use of oral hypoglycemic drugs
CPT/HCPCS: 36415; 36416; 74177; 80053; 82565; 85014; 85018; 85025; 85049; 87040; 87324; 87449; 90471; 90682; 97602; A4216; G0008; G8978-GP-CI; G8979-GP-CI; G8987-GO-CJ; G8987-GO-CM; G8988-GO-CI; G8988-GO-CJ; G8990-GP-CH; G8991-GP-CH; G8996-GN-CH; G8996-GN-CJ; G8997-GN-CH; G8997-GN-CI; J1650; J2185; J3370; J7050; Q2036

== ENCOUNTER 2019-01-30 09:19 | Outpatient (CLI) | payer MEDICARE ==
--- NOTE | 2019-01-30 12:01 | RAD ---
XR Shoulder Lt 3 View STANDARD HISTORY: Left shoulder pain FINDINGS: No fracture or dislocation is identified. Degenerative changes are present.
== END 2019-01-30 09:20 | disposition home or self-care (01) ==
LOC: BURRAD 09:19
PROVIDERS: ATTEND Family Medicine
DX: M25.512 Pain in left shoulder (principal); M19.012 Primary osteoarthritis, left shoulder

== ENCOUNTER 2019-06-28 18:58 | Emergency (ER) | payer MEDICARE ==
[2019-06-28 19:31] LABS: #Basophils 0.1 thou/uL (0.0-0.2); #Lymphocytes 1.3 thou/uL (1.20-3.40); #Neutrophils 10.7 thou/uL (1.40-6.50); %Basophils 0.7 % (0.0-1.0); %Eosinophils 0.3 % (0.0-10.0); %Lymphocytes 9.8 % (21.0-51.0); %Monocytes 7.2 % (0.0-10.0); Hemoglobin 14.2 g/dL (12.0-16.0); Mean Corpuscular HGB CONC 31.4 g/dL (32.0-36.0); Mean Corpuscular Hemoglobin 28.9 pg (27.0-31.0); Mean Platelet Volume 7.2 fL (7.4-10.4); Platelet Count 326 thou/uL (130-400); Red Blood Cell (RBC) Count 4.93 mill/uL (4.20-5.40); White Blood Cell (WBC) Count 13.1 thou/uL (4.8-10.8)
[2019-06-28 19:38] LABS: INR-International Normal Ratio 1.1; PTT 27.9 SEC (22.9-36.1); Prothrombin Time 14.6 SEC (12.0-14.7)
[2019-06-28] MEDS ORDERED: Ondansetron PF 4 MG/2 ML Vial ONE (19:43)
[2019-06-28] MEDS ORDERED: Morphine 4 MG/ML VIAL ONE (19:43)
[2019-06-28 19:52] LABS: ALT (SGPT) 12 U/L (8-55); AST (SGOT) 20 U/L (5-34); Albumin 4.3 g/dL (3.4-4.8); Alkaline Phosphatase 43 U/L (40-110); Anion Gap 23 mmol/L (10-20); BUN (Urea Nitrogen) 25 mg/dL (9.8-20.1); Bilirubin, Total 0.8 mg/dL (0.2-1.2); Calc. Creatinine Clearance 0 mL/min (70-130); Calcium 10.2 mg/dL (7.8-10.44); Carbon Dioxide 18 mmol/L (23-31); Chloride 104 mmol/L (98-107); Estimated GFR-MDRD 43; Globulin 3.6 g/dL (2.4-3.5); Glucose 138 mg/dL (83-110); Lipase 33 U/L (8-78); Potassium 3.7 mmol/L (3.5-5.1); Protein, Total 7.9 g/dL (6.0-8.3); Sodium 141 mmol/L (136-145)
[2019-06-28 20:38] LABS: CKMB 2.8 ng/mL (0-6.6)
--- NOTE | 2019-06-28 21:08 | CT ---
CT Head without IV contrast COMPARISON: 11/30/2017. HISTORY: Confusion and altered mental status. TECHNIQUE: Axial CT imaging at 5 mm intervals from vertex through skull base without contrast FINDINGS: There is no evidence of an acute infarction, hemorrhage, mass effect, or midline shift. There is decr eased attenuation seen in the periventricular white matter which is nonspecific but likely attributable to chronic small vessel ischemic changes. There is mild cerebral volume loss. The ventri cular system is normal in size, shape, and position for the degree of sulcal atrophy. Visualized paranasal sinuses are clear. Osseous structures appear intact. There is been no interval change from prior study. IMPRESSION: 1. No acute intracranial abnormality demonstrated. additional findings
--- NOTE | 2019-06-28 21:33 | CT ---
CT ABDOMEN AND PELVIS WITH IV CONTRAST: 06/28/19 HISTORY: Small bowel obstruction. History of prior surgery. COMPARISON: 06/06/17. FINDINGS: The left pleural effusion and consolidation at the left lung base have resolved. The patient's arms o verlie the abdomen which does limit evaluation. Calcified granulomata are again seen in the liver and spleen. The pancreas and bilateral adrenal glands demonstrate a normal CT appearance. The mass-like density i n the right kidney is not visualized. However, there is significant artifact extending through each k idney on this exam. There is evidence of renal cortical thinning and subcentimeter too small to maia cterize hypodense lesions in each kidney. Urinary bladder and ureters demonstrate a normal appearance for patient's age. There is wall thickening involving the second portion of the duodenum. This could be possibly related to duodenitis; however, direct visualization is suggested. There are postsurgical changes of loops of bowel within the abdomen. There is no evidence of a bowel obstruction, the loops of small bowel are normal in caliber. No free fluid collection is seen in the abdomen or pelvis. There is no lymphadenopathy. Vascular calc ifications are again noted. Degenerative changes are seen in the spine, and there is mild right convexed scoliosis of the lumbar spine. There is bilateral hip osteoarthritis. There is colonic diverticulosis. IMPRESSION: 1. Wall thickening involving the second portion of the duodenum. This is an overall nonspecific finding. No definite inflammatory changes are seen in this region or adjacent to the pancreas. Duoden itis is a possibility. A follow-up endoscopy or upper GI is suggested. 2. Resolution of dilated loops of bowel noted on the prior exam. Previously noted gastrostomy tu be has also been removed. 3. There was mention of a lesion within the mid portion right kidney. However, this is not seen on today's examination and findings were likely artifactual. There is significant artifact extending through the kidneys on today's exam, but no definite discrete mass is visualized; although, there are subcentimeter too small to characterize hypodense lesions present. 4. Additional findings as described above. POS: [facility]
[2019-06-28] MEDS ORDERED: Promethazine HCl 25 MG/ML VIAL ONE (21:41)
[2019-06-28 23:10] LABS: Anion Gap 18 mmol/L (10-20); BUN (Urea Nitrogen) 22 mg/dL (9.8-20.1); Calc. Creatinine Clearance 0 mL/min (70-130); Calcium 9.3 mg/dL (7.8-10.44); Carbon Dioxide 21 mmol/L (23-31); Chloride 107 mmol/L (98-107); Estimated GFR-MDRD 52; Glucose 97 mg/dL (83-110); Potassium 3.7 mmol/L (3.5-5.1); Sodium 142 mmol/L (136-145)
[2019-06-28 23:30] LABS: CKMB 3.2 ng/mL (0-6.6)
== END 2019-06-28 23:28 | disposition home or self-care (01) ==
LOC: BURERS 18:58
DX: R11.2 Nausea with vomiting, unspecified (principal); R10.817 Generalized abdominal tenderness; E11.40 Type 2 diabetes mellitus with diabetic neuropathy, unspecified; E78.5 Hyperlipidemia, unspecified; I10 Essential (primary) hypertension; Z79.899 Other long term (current) drug therapy; Z79.84 Long term (current) use of oral hypoglycemic drugs
CPT/HCPCS: 36415; 70450; 74177; 80053; 82553; 83605; 83690; 83880; 84443; 84484; 85025; 85610; 85730; 93005; 96361; 96372; 96374; 96375; J0500; J2270; J2405; J2550

== ENCOUNTER 2020-06-01 16:26 | Emergency (ER) | payer MEDICARE ==
[2020-06-01 17:01] LABS: #Basophils 0.1 thou/uL (0.0-0.2); #Eosinphils 0.3 thou/uL (0.0-0.7); #Lymphocytes 1.6 thou/uL (1.20-3.40); #Monocytes 0.7 thou/uL (0.11-0.59); #Neutrophils 6.1 thou/uL (1.40-6.50); %Basophils 1.4 % (0.0-1.0); %Eosinophils 3.4 % (0.0-10.0); %Lymphocytes 18.2 % (21.0-51.0); %Monocytes 7.5 % (0.0-10.0); %Neutrophils 69.4 % (42.0-75.0); Hemoglobin 14.4 g/dL (12.0-16.0); Mean Corpuscular HGB CONC 30.9 g/dL (32.0-36.0); Mean Corpuscular Hemoglobin 29.3 pg (27.0-31.0); Mean Corpuscular Volume 94.8 fL (78.0-98.0); Mean Platelet Volume 8.1 fL (7.4-10.4); Platelet Count 331 thou/uL (130-400); RBC Distribution Width 13.4 % (11.5-14.5); Red Blood Cell (RBC) Count 4.91 mill/uL (4.20-5.40); White Blood Cell (WBC) Count 8.8 thou/uL (4.8-10.8)
[2020-06-01 17:09] LABS: INR-International Normal Ratio 1.1; PTT 27.6 sec (22.9-36.1); Prothrombin Time 13.9 sec (12.0-14.7)
[2020-06-01 17:11] LABS: D-Dimer Test 2.01 *mcg/mL (0.27-0.43)
[2020-06-01 17:18] LABS: ALT (SGPT) 14 U/L (8-55); AST (SGOT) 18 U/L (5-34); Alkaline Phosphatase 46 U/L (40-110); Anion Gap 20 mmol/L (10-20); BUN (Urea Nitrogen) 43 mg/dL (9.8-20.1); Bilirubin, Total 0.8 mg/dL (0.2-1.2); Calc. Creatinine Clearance 0 mL/min (70-130); Calcium 8.8 mg/dL (7.8-10.44); Carbon Dioxide 22 mmol/L (23-31); Chloride 100 mmol/L (98-107); Estimated GFR-MDRD 22; Globulin 3.3 g/dL (2.4-3.5); Glucose 186 mg/dL (83-110); Potassium 3.6 mmol/L (3.5-5.1); Protein, Total 7.3 g/dL (6.0-8.3); Sodium 138 mmol/L (136-145)
--- NOTE | 2020-06-01 17:26 | CT ---
CT OF THE BRAIN WITHOUT CONTRAST: Date: 06-01-2020 Comparison: 06-28-19 FINDINGS: The ventricles are normal in size with no shift. No intracranial bleeding, mass, or acute stroke was found. There may have been an old stroke in the left occipital lobe, but the finding has not changed over the interval. Basal ganglia calcifications are present on the left. The skull shows no sign of f racture. The visible paranasal sinuses and mastoid air cells are clear. IMPRESSION: No acute intracranial findings. Preliminary report called to December in ER at 1707 on 06-01-2020. POS: HOME
[2020-06-01 17:35] LABS: CKMB 2.8 ng/mL (0-6.6)
[2020-06-01 18:15] LABS: Bilirubin Moderate (Negative); Blood, Urine Large (Negative); Clarity Turbid (Clear); Glucose, Urine (Dipstick) 100 mg/dL (Negative); Ketone, Urine Trace mg/dL (Negative); Leukocyte Negative (Negative); Nitrite Negative (Negative); Protein, Urine (Dipstick) > or equal to 300 mg/dL (Neg-Trace)
[2020-06-01 18:21] LABS: Specific Gravity, Urine 1.024 (1.002-1.036)
[2020-06-01 18:34] LABS: RBC/HPF 21-50 HPF (0-3)
[2020-06-01 18:35] LABS: Renal Epithelial 0-3 HPF (None Seen); Transitional Epithelial 0-3 HPF (None Seen)
[2020-06-01 18:36] LABS: Bacteria/HPF 1+ HPF (None Seen)
--- NOTE | 2020-06-01 21:15 | RAD ---
PORTABLE CHEST: Date: 06-01-2020 An AP portable film at 1711 is compared with a 05-14-17 study. FINDINGS: Some slight elevation of the left hemidiaphragm is probably chronic. No lobar consolidation, effusion , or vascular congestion was seen. IMPRESSION: No acute finding. POS: HOME
== END 2020-06-01 18:22 | disposition short-term general hospital (02) ==
LOC: BURERS 16:26
DX: E86.0 Dehydration (principal); R55 Syncope and collapse; S00.03XA Contusion of scalp, initial encounter; N28.9 Disorder of kidney and ureter, unspecified; E11.40 Type 2 diabetes mellitus with diabetic neuropathy, unspecified; E78.5 Hyperlipidemia, unspecified; I10 Essential (primary) hypertension; F32.9 Major depressive disorder, single episode, unspecified; Y92.098 Other place in other non-institutional residence as the place of occurrence of the external cause; Z79.899 Other long term (current) drug therapy; Z79.84 Long term (current) use of oral hypoglycemic drugs; Z79.82 Long term (current) use of aspirin; W18.30XA Fall on same level, unspecified, initial encounter
CPT/HCPCS: 36415; 51701; 70450; 71045; 80053; 81003; 81015; 82553; 83605; 83880; 84484; 85025; 85379; 85610; 85730; 93005; 96360

== ENCOUNTER 2020-06-06 16:02 | Inpatient (IN) | payer MEDICARE ==
[2020-06-06] MEDS ORDERED: cloNIDine 0.1 MG TAB PO PRN (21:00)
[2020-06-06] MEDS ORDERED: Dicyclomine 20 MG TAB PO PRN (21:10)
[2020-06-06] MEDS: Ondansetron ODT 4 MG TAB PO SCH (22:15)
[2020-06-07] MEDS: Ondansetron ODT 4 MG TAB PO SCH ×3 (05:38→21:11)
[2020-06-07] MEDS ORDERED: HumaLOG 300 UNITS/3 ML VIAL SC PRN (08:19)
[2020-06-07] MEDS ORDERED: Dextrose 50% Abboject 50 ML SYRINGE SLOW IVP PRN (08:19)
[2020-06-07] MEDS ORDERED: Dextrose 5% in Water 1,000 ML IV PRN (08:19)
[2020-06-07] MEDS: Aspirin Chewable 81 MG TAB PO SCH (08:51)
[2020-06-07] MEDS: Lisinopril 20 MG TAB PO SCH (08:51)
[2020-06-07] MEDS: Gabapentin 100 MG CAP PO SCH ×3 (08:52→21:12)
[2020-06-07] MEDS: Gabapentin 300 MG CAP PO SCH ×3 (08:52→21:12)
[2020-06-07] MEDS: Fenofibrate Nanocrystallized 145 MG TAB PO SCH (08:52)
[2020-06-07] MEDS: clonazePAM 0.5 MG TAB PO SCH (08:53)
[2020-06-07] MEDS: Furosemide 40 MG TAB PO SCH (08:53)
[2020-06-07] MEDS: metFORMIN 500 MG TAB PO SCH (08:53)
[2020-06-07] MEDS ORDERED: Iopamidol 370 76% 100 ML VIAL ONE (10:56)
--- NOTE | 2020-06-07 17:12 | CT ---
CT ABDOMEN AND PELVIS WITH AND WITHOUT CONTRAST, WITH REGIONAL RECONSTRUCTIONS: 06/07/20 This patient has had several prior CT scans and an ultrasound showing an abnormality in the right kid michelle which has not been fully worked out. A CT scan with and without contrast using a renal mass tucker col was recommended for follow-up. Axial slices were acquired with and without IV contrast. Post imaging reconstructions in multiple khoa yolis were then done. Comparison was made with numerous prior CT scans, including the 06/01/[address] study and older scans from 06/28/19, 06/06/17, and 05/03/17. I also reviewed the 05/25/17 renal ultrasound. Various small cysts have been described in each kidney, primarily the right on the numerous prior kaylynn ging studies. There is an area at the junction of the middle and lower thirds of the right kidney kala t shows slight widening and rounding of the renal cortex and a slight low density center. It has been unclear if this is a mass or not. Today's exam supplies noncontrast, venous and delayed images of hi s area. Looking back at the numerous scans, I believe this area has changed minimally over time, whic h mitigates towards a benign process or anatomic variant. No abnormal enhancement to this area was ap preciated today on the venous or delayed images. Its size has not grown since the last several scans. Elsewhere in the right kidney, a few small cysts, none larger than about 1 cm or so in size, are aga in seen. They have not changed significantly. While an arterial phase scan would have been nice to schulz ve, given the general lack of traveler changer time, lack of abnormal vessels and general cortical enhance ment similar to the adjacent cortex, I feel the odds of this being benign are very high. The imaging studies done to date, including this multiphase scan, cannot confirm a true mass here. It is notable that there are some small bilateral pleural effusions today as well as some basilar ate lectasis. The liver, spleen, pancreas, gallbladder, adrenal glands, and abdominal aorta showed no acu te findings. There is no sign of obstruction of bowel or inflammatory change around bowel or in the m esentery. No free air or free fluid was seen. One loop of bowel in the mid upper pelvic region where there has been some prior surgery shows an increase of fecal material in it but there is no sign of f rank obstruction here. CT of the pelvis showed no pelvic masses, fluid collections, or inflammatory changes. The adnexal reg ions were normal in appearance. Lumbar scoliosis with degenerative change throughout is noted as usua l. IMPRESSION: 1. Small bilateral renal cysts, more so in the right kidney than left. Most are in the vicinity of 1 cm in size. 2. While there are some somewhat bulbous areas in the right kidney, particularly laterally at th e junction of the middle and lower third, and perhaps the medial posterior lip near the renal pelvis, these areas do not appear to have significantly changed over time, nor is there abnormal enhancement or abnormal vessels appreciated. While there is some loss of detail on this scan due to streak artif act, and having an arterial phase would have been useful, I believe the current findings mitigate str ongly towards a benign process rather than a malignant one, given the factors listed above. 3. Small bilateral pleural effusions with some basilar atelectasis posteriorly POS: HOME
[2020-06-07] MEDS: oxyCODONE 5 MG TAB PO PRN ×2 (17:44→21:12)
[2020-06-07] MEDS ORDERED: FLU VACC QS2020-21(65YR UP)/PF 240 MCG/0.7 ML SYRINGE IM ONE (21:00)
[2020-06-07] MEDS: Lidocaine 5% Patch TD SCH (21:14)
[2020-06-08] MEDS: Ondansetron ODT 4 MG TAB PO SCH ×3 (05:03→21:03)
[2020-06-08] MEDS: Fenofibrate Nanocrystallized 145 MG TAB PO SCH (08:57)
[2020-06-08] MEDS: Gabapentin 300 MG CAP PO SCH ×3 (08:58→21:03)
[2020-06-08] MEDS: Gabapentin 100 MG CAP PO SCH ×3 (08:58→21:03)
[2020-06-08] MEDS: Lisinopril 20 MG TAB PO SCH (08:59)
[2020-06-08] MEDS: Furosemide 40 MG TAB PO SCH (08:59)
[2020-06-08] MEDS: clonazePAM 0.5 MG TAB PO SCH (08:59)
[2020-06-08] MEDS: Aspirin Chewable 81 MG TAB PO SCH (08:59)
[2020-06-08] MEDS: metFORMIN 500 MG TAB PO SCH (09:00)
[2020-06-08] MEDS: Cyclobenzaprine 10 MG TAB PO PRN (13:54)
[2020-06-08] MEDS: Senokot 8.6 MG TAB PO PRN (14:30)
[2020-06-08] MEDS: Lidocaine 5% Patch TD SCH (21:03)
[2020-06-09] MEDS: Cyclobenzaprine 10 MG TAB PO PRN ×2 (05:34→17:15)
[2020-06-09] MEDS: Ondansetron ODT 4 MG TAB PO SCH ×3 (05:34→21:32)
[2020-06-09 08:03] LABS: #Basophils 0.1 thou/uL (0.0-0.2); #Eosinphils 0.3 thou/uL (0.0-0.7); #Lymphocytes 1.4 thou/uL (1.20-3.40); #Monocytes 0.9 thou/uL (0.11-0.59); #Neutrophils 5.1 thou/uL (1.40-6.50); %Eosinophils 3.7 % (0.0-10.0); %Lymphocytes 18.1 % (21.0-51.0); %Neutrophils 66.2 % (42.0-75.0); Hemoglobin 12.9 g/dL (12.0-16.0); Mean Corpuscular HGB CONC 31.9 g/dL (32.0-36.0); Mean Corpuscular Hemoglobin 29.9 pg (27.0-31.0); Mean Corpuscular Volume 93.7 fL (78.0-98.0); Mean Platelet Volume 8.1 fL (7.4-10.4); Platelet Count 258 thou/uL (130-400); White Blood Cell (WBC) Count 7.7 thou/uL (4.8-10.8)
[2020-06-09 08:18] LABS: ALT (SGPT) 13 U/L (8-55); AST (SGOT) 16 U/L (5-34); Albumin 3.4 g/dL (3.4-4.8); Alkaline Phosphatase 32 U/L (40-110); Anion Gap 19 mmol/L (10-20); BUN (Urea Nitrogen) 35 mg/dL (9.8-20.1); Bilirubin, Total 0.6 mg/dL (0.2-1.2); Calc. Creatinine Clearance 30 mL/min (70-130); Calcium 9.1 mg/dL (7.8-10.44); Carbon Dioxide 27 mmol/L (23-31); Chloride 95 mmol/L (98-107); Estimated GFR-MDRD 15; Globulin 3.2 g/dL (2.4-3.5); Glucose 123 mg/dL (83-110); Potassium 4.5 mmol/L (3.5-5.1); Protein, Total 6.6 g/dL (6.0-8.3); Sodium 136 mmol/L (136-145)
[2020-06-09] MEDS: clonazePAM 0.5 MG TAB PO SCH (09:00)
[2020-06-09] MEDS: Sodium Chloride 0.9% 1,000 ML IV SCH ×2 (09:20→18:57)
[2020-06-09] MEDS: metFORMIN 500 MG TAB PO SCH (10:32)
[2020-06-09] MEDS: Gabapentin 300 MG CAP PO SCH ×3 (10:33→21:32)
[2020-06-09] MEDS: Aspirin Chewable 81 MG TAB PO SCH (10:33)
[2020-06-09] MEDS: Gabapentin 100 MG CAP PO SCH ×3 (10:33→21:32)
[2020-06-09] MEDS: Fenofibrate Nanocrystallized 145 MG TAB PO SCH (10:33)
[2020-06-09] MEDS: Furosemide 40 MG TAB PO SCH (10:46)
[2020-06-09] MEDS: Lisinopril 20 MG TAB PO SCH (10:46)
[2020-06-09] MEDS: oxyCODONE 5 MG TAB PO PRN (15:21)
[2020-06-09] MEDS: Lidocaine 5% Patch TD SCH (21:32)
[2020-06-10] MEDS: Sodium Chloride 0.9% 1,000 ML IV SCH ×3 (03:02→19:44)
[2020-06-10 04:20] LABS: Anion Gap 17 mmol/L (10-20); BUN (Urea Nitrogen) 42 mg/dL (9.8-20.1); Calc. Creatinine Clearance 32 mL/min (70-130); Calcium 8.4 mg/dL (7.8-10.44); Carbon Dioxide 25 mmol/L (23-31); Chloride 100 mmol/L (98-107); Estimated GFR-MDRD 15; Glucose 120 mg/dL (83-110); Potassium 4.6 mmol/L (3.5-5.1); Sodium 137 mmol/L (136-145)
[2020-06-10] MEDS: Ondansetron ODT 4 MG TAB PO SCH ×3 (05:09→21:05)
[2020-06-10] MEDS: Fenofibrate Nanocrystallized 145 MG TAB PO SCH (08:33)
[2020-06-10] MEDS: Gabapentin 100 MG CAP PO SCH ×3 (08:35→21:05)
[2020-06-10] MEDS: metFORMIN 500 MG TAB PO SCH (08:35)
[2020-06-10] MEDS: Aspirin Chewable 81 MG TAB PO SCH (08:35)
[2020-06-10] MEDS: Gabapentin 300 MG CAP PO SCH ×3 (08:35→21:05)
[2020-06-10] MEDS: clonazePAM 0.5 MG TAB PO SCH (08:36)
[2020-06-10] MEDS: oxyCODONE 5 MG TAB PO PRN ×2 (10:52→18:02)
[2020-06-10] MEDS: Lidocaine Patch Removal 1 EACH TOP SCH (10:54)
[2020-06-10] MEDS: Cyclobenzaprine 10 MG TAB PO PRN (14:05)
[2020-06-10] MEDS: Senokot 8.6 MG TAB PO PRN (18:07)
[2020-06-10] MEDS ORDERED: Bisacodyl 10 MG SUPP PR PRN (19:45)
[2020-06-10] MEDS ORDERED: Senokot 8.6 MG TAB PO PRN (20:15)
[2020-06-10] MEDS: Lidocaine 5% Patch TD SCH (21:05)
[2020-06-10] MEDS: Nystatin Powder 15 GM BOT TOP PRN (21:10)
[2020-06-11] MEDS: oxyCODONE 5 MG TAB PO PRN ×2 (02:08→10:14)
[2020-06-11] MEDS: Sodium Chloride 0.9% 1,000 ML IV SCH ×3 (03:52→23:28)
[2020-06-11] MEDS: Ondansetron ODT 4 MG TAB PO SCH ×3 (05:19→20:17)
[2020-06-11 05:28] LABS: Anion Gap 13 mmol/L (10-20)
[2020-06-11 05:45] LABS: Calc. Creatinine Clearance 74 mL/min (70-130); Estimated GFR-MDRD 41
[2020-06-11 05:46] LABS: BUN (Urea Nitrogen) 32 mg/dL (9.8-20.1); Calcium 8.3 mg/dL (7.8-10.44); Carbon Dioxide 25 mmol/L (23-31); Chloride 106 mmol/L (98-107); Glucose 102 mg/dL (83-110); Potassium 4.4 mmol/L (3.5-5.1); Sodium 140 mmol/L (136-145)
[2020-06-11] MEDS: Polyethylene Glycol 3350 17 GM Packet PO SCH (08:51)
[2020-06-11] MEDS: Gabapentin 100 MG CAP PO SCH ×3 (08:55→20:16)
[2020-06-11] MEDS: Gabapentin 300 MG CAP PO SCH ×3 (08:55→20:16)
[2020-06-11] MEDS: Aspirin Chewable 81 MG TAB PO SCH (08:56)
[2020-06-11] MEDS: Fenofibrate Nanocrystallized 145 MG TAB PO SCH (08:56)
[2020-06-11] MEDS: clonazePAM 0.5 MG TAB PO SCH (08:56)
[2020-06-11] MEDS: Lisinopril 20 MG TAB PO SCH (08:57)
[2020-06-11] MEDS: metFORMIN 500 MG TAB PO SCH (08:57)
[2020-06-11] MEDS: Lidocaine Patch Removal 1 EACH TOP SCH (09:01)
[2020-06-11] MEDS: Lidocaine 5% Patch TD SCH (20:15)
[2020-06-12] MEDS: Ondansetron ODT 4 MG TAB PO SCH ×3 (06:19→22:45)
[2020-06-12 06:35] LABS: Anion Gap 13 mmol/L (10-20); BUN (Urea Nitrogen) 22 mg/dL (9.8-20.1); Calc. Creatinine Clearance 101 mL/min (70-130); Calcium 8.7 mg/dL (7.8-10.44); Carbon Dioxide 25 mmol/L (23-31); Chloride 107 mmol/L (98-107); Estimated GFR-MDRD 59; Glucose 102 mg/dL (83-110); Potassium 4.8 mmol/L (3.5-5.1); Sodium 140 mmol/L (136-145)
[2020-06-12] MEDS: Lisinopril 20 MG TAB PO SCH (09:11)
[2020-06-12] MEDS: metFORMIN 500 MG TAB PO SCH (09:12)
[2020-06-12] MEDS: Gabapentin 100 MG CAP PO SCH ×3 (09:12→20:00)
[2020-06-12] MEDS: Gabapentin 300 MG CAP PO SCH ×3 (09:12→20:00)
[2020-06-12] MEDS: Lidocaine Patch Removal 1 EACH TOP SCH (09:13)
[2020-06-12] MEDS: clonazePAM 0.5 MG TAB PO SCH (09:13)
[2020-06-12] MEDS: Fenofibrate Nanocrystallized 145 MG TAB PO SCH (09:13)
[2020-06-12] MEDS: Aspirin Chewable 81 MG TAB PO SCH (09:13)
[2020-06-12] MEDS: Polyethylene Glycol 3350 17 GM Packet PO SCH (09:15)
[2020-06-12] MEDS: oxyCODONE 5 MG TAB PO PRN ×3 (09:35→20:00)
[2020-06-12] MEDS: Lidocaine 5% Patch TD SCH (20:02)
[2020-06-13] MEDS: oxyCODONE 5 MG TAB PO PRN ×3 (01:12→20:30)
[2020-06-13] MEDS: Ondansetron ODT 4 MG TAB PO SCH (06:04)
[2020-06-13] MEDS ORDERED: Lisinopril 20 MG TAB PO SCH (06:31)
[2020-06-13] MEDS ORDERED: Ondansetron ODT 4 MG TAB PO PRN (07:20)
[2020-06-13] MEDS: metFORMIN 500 MG TAB PO SCH (08:42)
[2020-06-13] MEDS: clonazePAM 0.5 MG TAB PO SCH (08:42)
[2020-06-13] MEDS: Aspirin Chewable 81 MG TAB PO SCH (08:43)
[2020-06-13] MEDS: Lisinopril 10 MG TAB PO SCH (08:43)
[2020-06-13] MEDS: Fenofibrate Nanocrystallized 145 MG TAB PO SCH (08:43)
[2020-06-13] MEDS: Gabapentin 300 MG CAP PO SCH ×3 (08:44→20:31)
[2020-06-13] MEDS: Gabapentin 100 MG CAP PO SCH ×3 (08:44→20:31)
[2020-06-13] MEDS: Polyethylene Glycol 3350 17 GM Packet PO SCH (08:44)
[2020-06-13] MEDS: Lidocaine Patch Removal 1 EACH TOP SCH (09:07)
[2020-06-13] MEDS: Ergocalciferol 1.25 MG(50,000 UNITS) CAP PO SCH (09:09)
[2020-06-13] MEDS: Lidocaine 5% Patch TD SCH (20:31)
[2020-06-13] MEDS: Nystatin Powder 15 GM BOT TOP PRN (20:40)
[2020-06-14] MEDS: oxyCODONE 5 MG TAB PO PRN ×3 (00:28→20:57)
[2020-06-14] MEDS: Polyethylene Glycol 3350 17 GM Packet PO SCH (08:49)
[2020-06-14] MEDS: Fenofibrate Nanocrystallized 145 MG TAB PO SCH (08:50)
[2020-06-14] MEDS: Aspirin Chewable 81 MG TAB PO SCH (08:50)
[2020-06-14] MEDS: metFORMIN 500 MG TAB PO SCH (08:50)
[2020-06-14] MEDS: clonazePAM 0.5 MG TAB PO SCH (08:50)
[2020-06-14] MEDS: Lisinopril 10 MG TAB PO SCH (08:50)
[2020-06-14] MEDS: Lidocaine Patch Removal 1 EACH TOP SCH (08:51)
[2020-06-14] MEDS: Gabapentin 300 MG CAP PO SCH ×3 (08:51→20:57)
[2020-06-14] MEDS: Gabapentin 100 MG CAP PO SCH ×3 (08:51→20:58)
[2020-06-14] MEDS: Lidocaine 5% Patch TD SCH (20:58)
[2020-06-14] MEDS: Nystatin Powder 15 GM BOT TOP PRN (20:59)
[2020-06-15] MEDS: Polyethylene Glycol 3350 17 GM Packet PO SCH (09:46)
[2020-06-15] MEDS: Gabapentin 100 MG CAP PO SCH ×3 (09:47→21:32)
[2020-06-15] MEDS: metFORMIN 500 MG TAB PO SCH (09:47)
[2020-06-15] MEDS: Lidocaine Patch Removal 1 EACH TOP SCH (09:48)
[2020-06-15] MEDS: Gabapentin 300 MG CAP PO SCH ×3 (09:48→21:32)
[2020-06-15] MEDS: clonazePAM 0.5 MG TAB PO SCH (09:48)
[2020-06-15] MEDS: Aspirin Chewable 81 MG TAB PO SCH (09:48)
[2020-06-15] MEDS: Fenofibrate Nanocrystallized 145 MG TAB PO SCH (09:48)
[2020-06-15] MEDS: Lisinopril 10 MG TAB PO SCH (09:48)
[2020-06-15] MEDS: Lidocaine 5% Patch TD SCH (19:20)
[2020-06-16] MEDS: oxyCODONE 5 MG TAB PO PRN ×3 (04:30→21:20)
[2020-06-16 05:31] LABS: Anion Gap 16 mmol/L (10-20); BUN (Urea Nitrogen) 16 mg/dL (9.8-20.1); Calc. Creatinine Clearance 96 mL/min (70-130); Calcium 9.2 mg/dL (7.8-10.44); Carbon Dioxide 22 mmol/L (23-31); Chloride 104 mmol/L (98-107); Estimated GFR-MDRD 55; Glucose 103 mg/dL (83-110); Potassium 4.5 mmol/L (3.5-5.1); Sodium 137 mmol/L (136-145)
[2020-06-16] MEDS: Gabapentin 100 MG CAP PO SCH ×3 (08:51→21:23)
[2020-06-16] MEDS: Lisinopril 10 MG TAB PO SCH (08:52)
[2020-06-16] MEDS: clonazePAM 0.5 MG TAB PO SCH (08:57)
[2020-06-16] MEDS: Aspirin Chewable 81 MG TAB PO SCH (08:57)
[2020-06-16] MEDS: Fenofibrate Nanocrystallized 145 MG TAB PO SCH (08:57)
[2020-06-16] MEDS: metFORMIN 500 MG TAB PO SCH (08:57)
[2020-06-16] MEDS: Gabapentin 300 MG CAP PO SCH ×3 (08:57→21:23)
[2020-06-16] MEDS: Polyethylene Glycol 3350 17 GM Packet PO SCH (08:57)
[2020-06-16] MEDS: Lidocaine Patch Removal 1 EACH TOP SCH (09:07)
[2020-06-16] MEDS: Lidocaine 5% Patch TD SCH (21:23)
[2020-06-17] MEDS: Lidocaine Patch Removal 1 EACH TOP SCH (08:35)
[2020-06-17] MEDS: Lisinopril 10 MG TAB PO SCH (08:39)
[2020-06-17] MEDS: metFORMIN 500 MG TAB PO SCH (08:39)
[2020-06-17] MEDS: Gabapentin 100 MG CAP PO SCH ×3 (08:39→20:51)
[2020-06-17] MEDS: Gabapentin 300 MG CAP PO SCH ×3 (08:39→20:51)
[2020-06-17] MEDS: Fenofibrate Nanocrystallized 145 MG TAB PO SCH (08:40)
[2020-06-17] MEDS: clonazePAM 0.5 MG TAB PO SCH (08:40)
[2020-06-17] MEDS: Aspirin Chewable 81 MG TAB PO SCH (08:41)
[2020-06-17] MEDS: Polyethylene Glycol 3350 17 GM Packet PO SCH (11:07)
[2020-06-17] MEDS: oxyCODONE 5 MG TAB PO PRN ×2 (11:18→16:24)
[2020-06-17] MEDS: Lidocaine 5% Patch TD SCH (20:51)
[2020-06-18] MEDS: Polyethylene Glycol 3350 17 GM Packet PO SCH (08:48)
[2020-06-18] MEDS: Lidocaine Patch Removal 1 EACH TOP SCH (08:48)
[2020-06-18] MEDS: Aspirin Chewable 81 MG TAB PO SCH (08:49)
[2020-06-18] MEDS: Gabapentin 300 MG CAP PO SCH ×3 (08:50→20:30)
[2020-06-18] MEDS: Lisinopril 10 MG TAB PO SCH (08:50)
[2020-06-18] MEDS: Fenofibrate Nanocrystallized 145 MG TAB PO SCH (08:50)
[2020-06-18] MEDS: clonazePAM 0.5 MG TAB PO SCH (08:50)
[2020-06-18] MEDS: metFORMIN 500 MG TAB PO SCH (08:51)
[2020-06-18] MEDS: Gabapentin 100 MG CAP PO SCH ×3 (08:51→20:30)
[2020-06-18] MEDS: Lidocaine 5% Patch TD SCH (20:30)
[2020-06-18] MEDS: Nystatin Powder 15 GM BOT TOP PRN (20:45)
[2020-06-18] MEDS: oxyCODONE 5 MG TAB PO PRN (21:26)
[2020-06-19] MEDS: metFORMIN 500 MG TAB PO SCH (07:57)
[2020-06-19] MEDS: Fenofibrate Nanocrystallized 145 MG TAB PO SCH (07:57)
[2020-06-19] MEDS: clonazePAM 0.5 MG TAB PO SCH (07:58)
[2020-06-19] MEDS: Lisinopril 10 MG TAB PO SCH (07:58)
[2020-06-19] MEDS: Aspirin Chewable 81 MG TAB PO SCH (07:58)
[2020-06-19] MEDS: Gabapentin 100 MG CAP PO SCH ×3 (07:59→20:00)
[2020-06-19] MEDS: Gabapentin 300 MG CAP PO SCH ×3 (07:59→20:00)
[2020-06-19] MEDS: Polyethylene Glycol 3350 17 GM Packet PO SCH (08:00)
[2020-06-19] MEDS: Lidocaine Patch Removal 1 EACH TOP SCH (08:04)
[2020-06-19] MEDS: oxyCODONE 5 MG TAB PO PRN ×2 (09:08→14:08)
[2020-06-19] MEDS: Nystatin Powder 15 GM BOT TOP PRN (09:09)
[2020-06-19] MEDS: Lidocaine 5% Patch TD SCH (20:00)
[2020-06-20 05:21] LABS: BUN (Urea Nitrogen) 18 mg/dL (9.8-20.1); Chloride 105 mmol/L (98-107); Potassium 4.1 mmol/L (3.5-5.1); Sodium 140 mmol/L (136-145)
[2020-06-20 06:05] LABS: Anion Gap 15 mmol/L (10-20); Calc. Creatinine Clearance 118 mL/min (70-130); Carbon Dioxide 24 mmol/L (23-31); Estimated GFR-MDRD 70; Glucose 93 mg/dL (83-110)
[2020-06-20] MEDS: Lidocaine Patch Removal 1 EACH TOP SCH (10:10)
[2020-06-20] MEDS: Aspirin Chewable 81 MG TAB PO SCH (10:12)
[2020-06-20] MEDS: Gabapentin 100 MG CAP PO SCH ×3 (10:12→20:25)
[2020-06-20] MEDS: Fenofibrate Nanocrystallized 145 MG TAB PO SCH (10:12)
[2020-06-20] MEDS: Lisinopril 10 MG TAB PO SCH (10:12)
[2020-06-20] MEDS: metFORMIN 500 MG TAB PO SCH (10:12)
[2020-06-20] MEDS: Gabapentin 300 MG CAP PO SCH ×3 (10:12→20:25)
[2020-06-20] MEDS: clonazePAM 0.5 MG TAB PO SCH (10:12)
[2020-06-20] MEDS: Ergocalciferol 1.25 MG(50,000 UNITS) CAP PO SCH (10:15)
[2020-06-20] MEDS: Polyethylene Glycol 3350 17 GM Packet PO SCH (10:16)
[2020-06-20] MEDS: Lidocaine 5% Patch TD SCH (20:25)
[2020-06-21] MEDS: Aspirin Chewable 81 MG TAB PO SCH (08:53)
[2020-06-21] MEDS: Gabapentin 100 MG CAP PO SCH ×3 (08:53→21:17)
[2020-06-21] MEDS: Fenofibrate Nanocrystallized 145 MG TAB PO SCH (08:54)
[2020-06-21] MEDS: metFORMIN 500 MG TAB PO SCH (08:55)
[2020-06-21] MEDS: clonazePAM 0.5 MG TAB PO SCH (08:55)
[2020-06-21] MEDS: Lisinopril 10 MG TAB PO SCH (08:55)
[2020-06-21] MEDS: Gabapentin 300 MG CAP PO SCH ×3 (08:55→21:17)
[2020-06-21] MEDS: Polyethylene Glycol 3350 17 GM Packet PO SCH (08:56)
[2020-06-21] MEDS: Lidocaine Patch Removal 1 EACH TOP SCH (08:57)
[2020-06-21] MEDS: Lidocaine 5% Patch TD SCH (21:16)
[2020-06-21] MEDS: oxyCODONE 5 MG TAB PO PRN (23:08)
[2020-06-22] MEDS: Lidocaine Patch Removal 1 EACH TOP SCH (08:57)
[2020-06-22] MEDS: Fenofibrate Nanocrystallized 145 MG TAB PO SCH (08:57)
[2020-06-22] MEDS: Lisinopril 10 MG TAB PO SCH (08:58)
[2020-06-22] MEDS: Aspirin Chewable 81 MG TAB PO SCH (08:58)
[2020-06-22] MEDS: Gabapentin 100 MG CAP PO SCH ×3 (08:58→21:12)
[2020-06-22] MEDS: Gabapentin 300 MG CAP PO SCH ×3 (08:58→21:12)
[2020-06-22] MEDS: Polyethylene Glycol 3350 17 GM Packet PO SCH (08:59)
[2020-06-22] MEDS: clonazePAM 0.5 MG TAB PO SCH (08:59)
[2020-06-22] MEDS: metFORMIN 500 MG TAB PO SCH (08:59)
[2020-06-22] MEDS: oxyCODONE 5 MG TAB PO PRN ×2 (09:08→21:13)
[2020-06-22] MEDS: Lidocaine 5% Patch TD SCH (21:12)
[2020-06-23] MEDS: Gabapentin 100 MG CAP PO SCH ×3 (09:15→21:27)
[2020-06-23] MEDS: Fenofibrate Nanocrystallized 145 MG TAB PO SCH (09:15)
[2020-06-23] MEDS: clonazePAM 0.5 MG TAB PO SCH (09:16)
[2020-06-23] MEDS: Aspirin Chewable 81 MG TAB PO SCH (09:16)
[2020-06-23] MEDS: metFORMIN 500 MG TAB PO SCH (09:17)
[2020-06-23] MEDS: Lisinopril 10 MG TAB PO SCH (09:17)
[2020-06-23] MEDS: Lidocaine Patch Removal 1 EACH TOP SCH (09:17)
[2020-06-23] MEDS: Gabapentin 300 MG CAP PO SCH ×3 (09:17→21:27)
[2020-06-23] MEDS: Polyethylene Glycol 3350 17 GM Packet PO SCH (09:18)
[2020-06-23] MEDS: Lidocaine 5% Patch TD SCH (21:26)
[2020-06-23] MEDS: Nystatin Powder 15 GM BOT TOP PRN (21:27)
[2020-06-23] MEDS: Cyclobenzaprine 10 MG TAB PO PRN (21:44)
[2020-06-23] MEDS: oxyCODONE 5 MG TAB PO PRN (21:45)
[2020-06-24] MEDS: Aspirin Chewable 81 MG TAB PO SCH (08:24)
[2020-06-24] MEDS: clonazePAM 0.5 MG TAB PO SCH (08:24)
[2020-06-24] MEDS: Gabapentin 100 MG CAP PO SCH ×3 (08:25→20:38)
[2020-06-24] MEDS: Gabapentin 300 MG CAP PO SCH ×3 (08:25→20:38)
[2020-06-24] MEDS: Fenofibrate Nanocrystallized 145 MG TAB PO SCH (08:25)
[2020-06-24] MEDS: Polyethylene Glycol 3350 17 GM Packet PO SCH (08:26)
[2020-06-24] MEDS: metFORMIN 500 MG TAB PO SCH (08:26)
[2020-06-24] MEDS: Lidocaine Patch Removal 1 EACH TOP SCH (08:26)
[2020-06-24] MEDS: Lisinopril 10 MG TAB PO SCH (08:37)
[2020-06-24] MEDS: oxyCODONE 5 MG TAB PO PRN ×2 (11:58→20:41)
[2020-06-24] MEDS: Lidocaine 5% Patch TD SCH (20:38)
[2020-06-24] MEDS: Cyclobenzaprine 10 MG TAB PO PRN (20:43)
[2020-06-25] MEDS: Aspirin Chewable 81 MG TAB PO SCH (09:38)
[2020-06-25] MEDS: Polyethylene Glycol 3350 17 GM Packet PO SCH (09:39)
[2020-06-25] MEDS: metFORMIN 500 MG TAB PO SCH (09:39)
[2020-06-25] MEDS: Fenofibrate Nanocrystallized 145 MG TAB PO SCH (09:39)
[2020-06-25] MEDS: Gabapentin 100 MG CAP PO SCH ×3 (09:39→20:44)
[2020-06-25] MEDS: Lisinopril 10 MG TAB PO SCH (09:40)
[2020-06-25] MEDS: Gabapentin 300 MG CAP PO SCH ×3 (09:40→20:44)
[2020-06-25] MEDS: clonazePAM 0.5 MG TAB PO SCH (09:43)
[2020-06-25] MEDS: Lidocaine Patch Removal 1 EACH TOP SCH (09:52)
[2020-06-25 10:13] VITALS: BMI 39.7
[2020-06-25] MEDS: oxyCODONE 5 MG TAB PO PRN (20:43)
[2020-06-25] MEDS: Lidocaine 5% Patch TD SCH (20:44)
[2020-06-25] MEDS: Nystatin Powder 15 GM BOT TOP PRN (20:44)
[2020-06-25] MEDS: Cyclobenzaprine 10 MG TAB PO PRN (20:44)
[2020-06-26] MEDS: oxyCODONE 5 MG TAB PO PRN ×3 (09:14→21:56)
[2020-06-26] MEDS: Polyethylene Glycol 3350 17 GM Packet PO SCH ×2 (09:15→09:25)
[2020-06-26] MEDS: Fenofibrate Nanocrystallized 145 MG TAB PO SCH (09:16)
[2020-06-26] MEDS: Gabapentin 100 MG CAP PO SCH ×3 (09:16→21:58)
[2020-06-26] MEDS: Aspirin Chewable 81 MG TAB PO SCH (09:18)
[2020-06-26] MEDS: Lisinopril 10 MG TAB PO SCH (09:18)
[2020-06-26] MEDS: metFORMIN 500 MG TAB PO SCH (09:18)
[2020-06-26] MEDS: clonazePAM 0.5 MG TAB PO SCH (09:19)
[2020-06-26] MEDS: Gabapentin 300 MG CAP PO SCH ×3 (09:20→21:58)
[2020-06-26] MEDS: Lidocaine Patch Removal 1 EACH TOP SCH (09:41)
[2020-06-26] MEDS: Lidocaine 5% Patch TD SCH (21:58)
[2020-06-27] MEDS: oxyCODONE 5 MG TAB PO PRN (09:21)
[2020-06-27] MEDS: Gabapentin 300 MG CAP PO SCH ×3 (09:26→20:42)
[2020-06-27] MEDS: Lisinopril 10 MG TAB PO SCH (09:26)
[2020-06-27] MEDS: metFORMIN 500 MG TAB PO SCH (09:26)
[2020-06-27] MEDS: Aspirin Chewable 81 MG TAB PO SCH (09:26)
[2020-06-27] MEDS: Fenofibrate Nanocrystallized 145 MG TAB PO SCH (09:26)
[2020-06-27] MEDS: Gabapentin 100 MG CAP PO SCH ×3 (09:26→20:42)
[2020-06-27] MEDS: clonazePAM 0.5 MG TAB PO SCH (09:26)
[2020-06-27] MEDS: Ergocalciferol 1.25 MG(50,000 UNITS) CAP PO SCH (09:27)
[2020-06-27] MEDS: Lidocaine Patch Removal 1 EACH TOP SCH (09:27)
[2020-06-27] MEDS: Polyethylene Glycol 3350 17 GM Packet PO SCH (10:54)
[2020-06-27] MEDS: Lidocaine 5% Patch TD SCH (20:42)
[2020-06-28 06:12] VITALS: TEMP 97.8
[2020-06-28] MEDS: Lisinopril 10 MG TAB PO SCH (09:57)
[2020-06-28] MEDS: metFORMIN 500 MG TAB PO SCH (09:57)
[2020-06-28] MEDS: Lidocaine Patch Removal 1 EACH TOP SCH (09:57)
[2020-06-28] MEDS: Aspirin Chewable 81 MG TAB PO SCH (09:57)
[2020-06-28] MEDS: Fenofibrate Nanocrystallized 145 MG TAB PO SCH (09:57)
[2020-06-28] MEDS: Gabapentin 100 MG CAP PO SCH (09:57)
[2020-06-28] MEDS: clonazePAM 0.5 MG TAB PO SCH (09:57)
[2020-06-28] MEDS: Gabapentin 300 MG CAP PO SCH (09:57)
[2020-06-28 09:58] VITALS: BP 125/60
[2020-06-28] MEDS: Polyethylene Glycol 3350 17 GM Packet PO SCH (09:58)
--- NOTE | 2020-06-28 12:59 | RAD ---
LUMBAR SPINE: Date: 06/28/2020 AP, lateral, and spot views are provided. A 06/03/2020 CT lumbar spine report was reviewed. The youth worker view on that study showed some very slight downsloping of the T12 superior end plate and perhaps a b it of irregularity of it. It also showed degenerated disc at multiple levels, especially T2 and below . Today's exam shows scoliosis convex right. Degenerative changes are seen throughout with degenerated disc particularly prominent at the L3 through S1 levels, and to a lesser extent L2-L3. No acute fract ure was appreciated. Regarding the superior end plate of T12, there is no current compression of it a nd it is reasonably comparable in appearance to the youth worker image from 06/03/2020. Disc space narrowing at T12-L1 is the same as it was before. The SI joints are symmetrical. There is moderate calcificati on of the lower abdominal aorta. IMPRESSION: 1. Multilevel degenerative disc disease with degenerative changes at all levels. 2. Mild scoliosis. 3. No significant change in the appearance of the lumbar spine when compared with the 06/03/2020 sco ut view from a CT scan. POS: HOME
--- NOTE | 2020-07-02 09:50 | DIS ---
DATE OF ADMISSION: 06/06/2020 DATE OF DISCHARGE: 06/28/2020 ADMISSION DIAGNOSES: Physical deconditioning, T12 fracture, left renal lesion. SECONDARY DIAGNOSES: Hypertension; type 2 diabetes mellitus; dyslipidemia; anxiety with depression; prerenal azotemia with acute kidney injury, resolved. PROCEDURES: On 06/07/2020, CT of abdomen and pelvis showed small bilateral renal cysts, more so in the right kidney than left, most are in the vicinity of 1 cm in size while there are some somewhat bulbous areas in the right kidney, particularly laterally at the junction of the middle and lower third and perhaps the medial-posterior lip near the renal pelvis. These areas do not appear to have significantly changed over time, nor is there abnormal enhancement or abnormal vessels appreciated, while there is some loss of detail on the scan due to streak artifact and having an arterial phase would have been useful. I believe the current findings medicate strongly toward a benign process rather than a malignant one given the factors listed above. Small bilateral pleural effusions with some basilar atelectasis posteriorly. HOSPITAL COURSE: A 75-year-old female presented to our facility at [facility] to participate with physical therapy and occupational therapy status post acute admission at [facility] in [place], where she presented status post suspected syncopal episode at home with fall. Workup there including echocardiogram showing no abnormalities. She did present with acute kidney injury, which was effectively treated with IV hydration. The patient complained of back pain with resultant imaging showing a T11-T12 disk space fracture. Neurosurgery consulted the patient and recommended for her to wear a TLSO brace continuously and follow up in 4 weeks. The patient has been treated with pain medication in regards to her complaints of pain. Due to her physical deconditioning and decreased functional status, she was transitioned to our facility as previously stated to participate with therapy. Of note, during her stay in [place], her imaging did reveal a renal lesion to the left upper pole, for which we did repeat imaging here as advised; this favors a benign process per reading as above. Early in her stay here, she had poor intake overall and review of labs did reveal finding of acute kidney injury, which again resolved with IV hydration. Her intake improved back to her baseline thereafter. Secondary to the patient's age, body habitus, and pain, she was slow to progress with therapy and thus it has been decided for the patient to transfer to [facility] to continue her therapy as her is unable to provide adequate care for her alone at home. Although reluctant, the patient is agreeable to this with understanding of need to improve her functional status before being able to safely return home. DISPOSITION: The patient will discharge to [facility] for continued shelter and rehabilitation. DISCHARGE MEDICATIONS: 1. Aspirin 81 mg daily. 2. Dulcolax 10 mg daily p.r.n. 3. Clonazepam 0.5 mg daily. 4. Cyclobenzaprine 5 mg t.i.d. p.r.n. 5. Bentyl 10 mg t.i.d. p.r.n. 6. Ergocalciferol 1.25 mg q.7 days. 7. Fenofibrate 145 mg daily. 8. Gabapentin 400 mg t.i.d. 9. Lisinopril 10 mg daily. 10. Metformin 500 mg daily. 11. Myrbetriq 50 mg daily. 12. Nystatin powder topically b.i.d. p.r.n. 13. Zofran ODT 4 mg q.8 hours p.r.n. 14. Oxycodone immediate release 5 mg q.4 hours p.r.n. 15. MiraLAX 17 g p.o. daily. 16. Senokot 1 tablet daily p.r.n. 17. Sertraline 100 mg p.o. daily. TIME SPENT: For discharge of this patient is greater than 30 minutes. Job ID: [id number] MTDD
== END 2020-06-28 13:40 | DRG 948 ==
LOC: BURMED 20:00
PROVIDERS: ADMIT Family Medicine; ATTEND Family Medicine
DX: R53.1 Weakness (principal); N17.9 Acute kidney failure, unspecified; R53.81 Other malaise; I10 Essential (primary) hypertension; E11.9 Type 2 diabetes mellitus without complications; E78.5 Hyperlipidemia, unspecified; F41.9 Anxiety disorder, unspecified; F32.9 Major depressive disorder, single episode, unspecified; K59.00 Constipation, unspecified; F03.90 Unspecified dementia, unspecified severity, without behavioral disturbance, psychotic disturbance, mood disturbance, and anxiety; E66.9 Obesity, unspecified; Z68.39 Body mass index [BMI] 39.0-39.9, adult; N28.9 Disorder of kidney and ureter, unspecified; S22.089D Unspecified fracture of T11-T12 vertebra, subsequent encounter for fracture with routine healing
CPT/HCPCS: 36415; 36416; 72100; 74178; 80048; 80053; 85025; Q0162; Q9967

== ENCOUNTER 2020-08-05 10:17 | Outpatient (CLI) | payer MEDICARE ==
--- NOTE | 2020-08-05 15:03 | RAD ---
LUMBAR SPINE 3 VIEWS: DATE: 08/05/2020. FINDINGS: Mild to moderate rotoscoliosis is present convex right. The SI joints appear normal. There are larg e osteophytes present laterally and anterior in the spine. Multilevel degenerative disk disease is p resent, really at all lumbar levels, but especially at L2 and below. Disk space narrowing and vacuum phenomenon are seen at each of the disk spaces. No obvious fracture was seen. The SI joints were u nremarkable. The aorta is calcified. IMPRESSION: Scoliosis and moderately advanced degenerative change with multilevel degenerative disk disease. The latter is particularly notable at L2 and below. POS: HOME
== END 2020-08-05 10:18 | disposition home or self-care (01) ==
LOC: BURRAD 10:17
PROVIDERS: ATTEND Neurological Surgery
DX: M54.5 Low back pain (principal); M41.9 Scoliosis, unspecified; M51.36 Other intervertebral disc degeneration, lumbar region; M47.816 Spondylosis without myelopathy or radiculopathy, lumbar region
CPT/HCPCS: 72100

== ENCOUNTER 2020-09-10 09:18 | Outpatient (CLI) | payer MEDICARE ==
--- NOTE | 2020-09-10 17:15 | RAD ---
LUMBAR SPINE THREE VIEWS: 09/10/20 Comparison is made with the 08/05/2020 study. There has been no particular change in the appearance of the spine since the 08/05 study. An actual fr acture cannot reliably be appreciated on the plain radiographs. I see no significant policy change clerk time . Scoliosis and multilevel degenerative disc disease, particularly at L3 and below is noted as usual. The SI joints are symmetrical. IMPRESSION: No change since prior exam. POS: HOME
== END 2020-09-10 09:19 | disposition home or self-care (01) ==
LOC: BURRAD 09:18
PROVIDERS: ATTEND Neurological Surgery
DX: S22.008A Other fracture of unspecified thoracic vertebra, initial encounter for closed fracture (principal)
CPT/HCPCS: 72100

== ENCOUNTER 2020-12-01 19:00 | Inpatient (IN) | payer MEDICARE ==
[2020-12-01] MEDS: clonazePAM 0.5 MG TAB PO SCH (22:15)
[2020-12-01] MEDS: traMADol HCl 50 MG TAB PO PRN (22:20)
[2020-12-02] MEDS ORDERED: Docusate Sodium 100 MG/10 ML UDCUP PO PRN (07:03)
[2020-12-02] MEDS ORDERED: Bisacodyl 10 MG SUPP PR PRN (07:03)
[2020-12-02] MEDS: Fenofibrate Nanocrystallized 145 MG TAB PO SCH (08:20)
[2020-12-02] MEDS: Multivitamin W/ Minerals 1 TAB PO SCH (08:20)
[2020-12-02] MEDS: Polyethylene Glycol 3350 17 GM Packet PO SCH (08:20)
[2020-12-02] MEDS: Aspirin 81 mg Enteric Coated Tablet PO SCH (08:20)
[2020-12-02] MEDS: Furosemide 20 MG TAB PO SCH (08:21)
[2020-12-02] MEDS: metFORMIN 500 MG TAB PO SCH (08:21)
[2020-12-02] MEDS: clonazePAM 0.5 MG TAB PO SCH ×2 (08:21→21:03)
[2020-12-02] MEDS: Cyanocobalamin (Vitamin B-12) 1,000 MCG TAB PO SCH (08:22)
[2020-12-02] MEDS: Pregabalin 75 MG CAP PO SCH ×2 (08:22→21:04)
[2020-12-02] MEDS: Cholecalciferol (Vitamin D3) 400 UNITS TAB PO SCH (08:23)
[2020-12-02] MEDS: Lisinopril 10 MG TAB PO SCH (08:23)
[2020-12-02] MEDS ORDERED: Calcium Carbonate 500 MG ChewTAB PO SCH (09:00)
[2020-12-02] MEDS ORDERED: Vit A,C & E/Lutein/Minerals Tablet PO SCH (09:00)
[2020-12-02] MEDS ORDERED: Calcium Carbonate 500 MG ChewTAB PO PRN (11:52)
[2020-12-02] MEDS: traMADol HCl 50 MG TAB PO PRN (15:43)
[2020-12-02] MEDS: Atorvastatin Calcium 10 MG TAB PO SCH (21:03)
[2020-12-03] MEDS: traMADol HCl 50 MG TAB PO PRN ×2 (03:23→20:29)
[2020-12-03] MEDS: Lisinopril 10 MG TAB PO SCH (08:50)
[2020-12-03] MEDS: Aspirin 81 mg Enteric Coated Tablet PO SCH (08:50)
[2020-12-03] MEDS: Multivitamin W/ Minerals 1 TAB PO SCH (08:50)
[2020-12-03] MEDS: Furosemide 20 MG TAB PO SCH (08:52)
[2020-12-03] MEDS: Pregabalin 75 MG CAP PO SCH ×2 (08:52→20:26)
[2020-12-03] MEDS: Fenofibrate Nanocrystallized 145 MG TAB PO SCH (08:52)
[2020-12-03] MEDS: clonazePAM 0.5 MG TAB PO SCH ×2 (08:55→20:25)
[2020-12-03] MEDS: Polyethylene Glycol 3350 17 GM Packet PO SCH (08:55)
[2020-12-03] MEDS: Cholecalciferol (Vitamin D3) 400 UNITS TAB PO SCH (08:56)
[2020-12-03] MEDS: Docusate 100 MG CAP PO PRN (08:57)
[2020-12-03] MEDS: metFORMIN 500 MG TAB PO SCH (08:57)
[2020-12-03] MEDS: Cyanocobalamin (Vitamin B-12) 1,000 MCG TAB PO SCH (08:58)
[2020-12-03] MEDS: Atorvastatin Calcium 10 MG TAB PO SCH (20:25)
[2020-12-04] MEDS: traMADol HCl 50 MG TAB PO PRN ×2 (05:54→17:36)
[2020-12-04] MEDS: clonazePAM 0.5 MG TAB PO SCH ×2 (08:18→21:15)
[2020-12-04] MEDS: Pregabalin 75 MG CAP PO SCH ×2 (08:18→21:15)
[2020-12-04] MEDS: metFORMIN 500 MG TAB PO SCH (08:20)
[2020-12-04] MEDS: Fenofibrate Nanocrystallized 145 MG TAB PO SCH (08:21)
[2020-12-04] MEDS: Aspirin 81 mg Enteric Coated Tablet PO SCH (08:22)
[2020-12-04] MEDS: Furosemide 20 MG TAB PO SCH (08:22)
[2020-12-04] MEDS: Docusate 100 MG CAP PO PRN (08:22)
[2020-12-04] MEDS: Cholecalciferol (Vitamin D3) 400 UNITS TAB PO SCH (08:23)
[2020-12-04] MEDS: Cyanocobalamin (Vitamin B-12) 1,000 MCG TAB PO SCH (08:23)
[2020-12-04] MEDS: Multivitamin W/ Minerals 1 TAB PO SCH (08:24)
[2020-12-04] MEDS: Polyethylene Glycol 3350 17 GM Packet PO SCH (08:28)
[2020-12-04] MEDS: Lisinopril 10 MG TAB PO SCH (10:00)
[2020-12-04] MEDS: Atorvastatin Calcium 10 MG TAB PO SCH (21:14)
[2020-12-05] MEDS: Polyethylene Glycol 3350 17 GM Packet PO SCH (08:39)
[2020-12-05] MEDS: Cholecalciferol (Vitamin D3) 400 UNITS TAB PO SCH (08:40)
[2020-12-05] MEDS: Cyanocobalamin (Vitamin B-12) 1,000 MCG TAB PO SCH (08:41)
[2020-12-05] MEDS: Docusate 100 MG CAP PO PRN (08:43)
[2020-12-05] MEDS: Fenofibrate Nanocrystallized 145 MG TAB PO SCH (08:43)
[2020-12-05] MEDS: Pregabalin 75 MG CAP PO SCH ×2 (08:44→20:35)
[2020-12-05] MEDS: Furosemide 20 MG TAB PO SCH (08:45)
[2020-12-05] MEDS: metFORMIN 500 MG TAB PO SCH (08:45)
[2020-12-05] MEDS: Lisinopril 10 MG TAB PO SCH (08:48)
[2020-12-05] MEDS: Aspirin 81 mg Enteric Coated Tablet PO SCH (08:50)
[2020-12-05] MEDS: Multivitamin W/ Minerals 1 TAB PO SCH (08:50)
[2020-12-05] MEDS: clonazePAM 0.5 MG TAB PO SCH ×2 (08:50→20:35)
[2020-12-05 16:06] LABS: Bilirubin Negative (Negative); Blood, Urine Negative (Negative); Clarity Clear (Clear); Glucose, Urine (Dipstick) Negative (Negative); Ketone, Urine Negative (Negative); Leukocyte Negative (Negative); Nitrite Negative (Negative); Protein, Urine (Dipstick) Negative (Neg-Trace); Urobilinogen 0.2 mg/dL (Less than 2)
[2020-12-05 16:11] LABS: Urine Culture Reflex No No
[2020-12-05 17:34] LABS: Bacteria/HPF Rare-Few HPF (None Seen); RBC/HPF 0-3 HPF (0-3); Squamous Epithelial 0-3 HPF (0-3); WBC/HPF 0-3 HPF (0-3)
[2020-12-05] MEDS: Atorvastatin Calcium 10 MG TAB PO SCH (20:35)
[2020-12-06] MEDS: Polyethylene Glycol 3350 17 GM Packet PO SCH (09:15)
[2020-12-06] MEDS: Cyanocobalamin (Vitamin B-12) 1,000 MCG TAB PO SCH (09:22)
[2020-12-06] MEDS: Cholecalciferol (Vitamin D3) 400 UNITS TAB PO SCH (09:23)
[2020-12-06] MEDS: Pregabalin 75 MG CAP PO SCH ×2 (09:24→20:08)
[2020-12-06] MEDS: Docusate 100 MG CAP PO PRN (09:25)
[2020-12-06] MEDS: clonazePAM 0.5 MG TAB PO SCH ×2 (09:25→20:08)
[2020-12-06] MEDS: Lisinopril 10 MG TAB PO SCH (09:25)
[2020-12-06] MEDS: Multivitamin W/ Minerals 1 TAB PO SCH (09:25)
[2020-12-06] MEDS: Aspirin 81 mg Enteric Coated Tablet PO SCH (09:26)
[2020-12-06] MEDS: metFORMIN 500 MG TAB PO SCH (09:26)
[2020-12-06] MEDS: Furosemide 20 MG TAB PO SCH (09:26)
[2020-12-06] MEDS: Fenofibrate Nanocrystallized 145 MG TAB PO SCH (09:26)
[2020-12-06] MEDS: Atorvastatin Calcium 10 MG TAB PO SCH (20:08)
[2020-12-07] MEDS: Cholecalciferol (Vitamin D3) 400 UNITS TAB PO SCH (08:51)
[2020-12-07] MEDS: Cyanocobalamin (Vitamin B-12) 1,000 MCG TAB PO SCH (09:02)
[2020-12-07] MEDS: Lisinopril 10 MG TAB PO SCH (09:03)
[2020-12-07] MEDS: Polyethylene Glycol 3350 17 GM Packet PO SCH (09:03)
[2020-12-07] MEDS: Fenofibrate Nanocrystallized 145 MG TAB PO SCH (09:04)
[2020-12-07] MEDS: metFORMIN 500 MG TAB PO SCH (09:04)
[2020-12-07] MEDS: Multivitamin W/ Minerals 1 TAB PO SCH (09:04)
[2020-12-07] MEDS: Aspirin 81 mg Enteric Coated Tablet PO SCH (09:04)
[2020-12-07] MEDS: Pregabalin 75 MG CAP PO SCH ×2 (09:05→20:32)
[2020-12-07] MEDS: clonazePAM 0.5 MG TAB PO SCH ×2 (09:05→20:31)
[2020-12-07] MEDS: Furosemide 20 MG TAB PO SCH (09:06)
[2020-12-07] MEDS: Docusate 100 MG CAP PO PRN (09:06)
[2020-12-07] MEDS: Atorvastatin Calcium 10 MG TAB PO SCH (20:30)
[2020-12-08] MEDS ORDERED: Lisinopril 10 MG TAB PO SCH (07:05)
[2020-12-08] MEDS: Cholecalciferol (Vitamin D3) 400 UNITS TAB PO SCH (08:30)
[2020-12-08] MEDS: Aspirin 81 mg Enteric Coated Tablet PO SCH (08:30)
[2020-12-08] MEDS: metFORMIN 500 MG TAB PO SCH (08:30)
[2020-12-08] MEDS: Polyethylene Glycol 3350 17 GM Packet PO SCH (08:30)
[2020-12-08] MEDS: Multivitamin W/ Minerals 1 TAB PO SCH (08:30)
[2020-12-08] MEDS: clonazePAM 0.5 MG TAB PO SCH ×2 (08:30→20:35)
[2020-12-08] MEDS: Fenofibrate Nanocrystallized 145 MG TAB PO SCH (08:32)
[2020-12-08] MEDS: Furosemide 20 MG TAB PO SCH (08:32)
[2020-12-08] MEDS: Lisinopril 5 MG TAB PO SCH (08:33)
[2020-12-08] MEDS: Cyanocobalamin (Vitamin B-12) 1,000 MCG TAB PO SCH (08:34)
[2020-12-08] MEDS: Pregabalin 75 MG CAP PO SCH ×2 (08:52→20:36)
[2020-12-08] MEDS: Atorvastatin Calcium 10 MG TAB PO SCH (20:35)
[2020-12-09] MEDS: Aspirin 81 mg Enteric Coated Tablet PO SCH (08:51)
[2020-12-09] MEDS: Furosemide 20 MG TAB PO SCH (08:51)
[2020-12-09] MEDS: Fenofibrate Nanocrystallized 145 MG TAB PO SCH (08:51)
[2020-12-09] MEDS: Lisinopril 5 MG TAB PO SCH (08:51)
[2020-12-09] MEDS: Multivitamin W/ Minerals 1 TAB PO SCH (08:51)
[2020-12-09] MEDS: metFORMIN 500 MG TAB PO SCH (08:52)
[2020-12-09] MEDS: Cholecalciferol (Vitamin D3) 400 UNITS TAB PO SCH (08:52)
[2020-12-09] MEDS: clonazePAM 0.5 MG TAB PO SCH ×2 (08:52→20:52)
[2020-12-09] MEDS: Cyanocobalamin (Vitamin B-12) 1,000 MCG TAB PO SCH (08:53)
[2020-12-09] MEDS: Pregabalin 75 MG CAP PO SCH ×2 (08:53→20:45)
[2020-12-09] MEDS: Polyethylene Glycol 3350 17 GM Packet PO SCH (08:55)
[2020-12-09 09:44] LABS: ALT (SGPT) 13 U/L (8-55); AST (SGOT) 21 U/L (5-34); Albumin 3.5 g/dL (3.4-4.8); Alkaline Phosphatase 35 U/L (40-110); Anion Gap 14 mmol/L (10-20); BUN (Urea Nitrogen) 39 mg/dL (9.8-20.1); Bilirubin, Total 0.5 mg/dL (0.2-1.2); Calc. Creatinine Clearance 76 mL/min (70-130); Calcium 9.5 mg/dL (7.8-10.44); Carbon Dioxide 30 mmol/L (23-31); Chloride 103 mmol/L (98-107); Globulin 3.2 g/dL (2.4-3.5); Glucose 101 mg/dL (83-110); Protein, Total 6.7 g/dL (5.8-8.1); Sodium 142 mmol/L (136-145)
[2020-12-09] MEDS: traMADol HCl 50 MG TAB PO PRN ×2 (13:48→21:40)
[2020-12-09] MEDS: Atorvastatin Calcium 10 MG TAB PO SCH (20:52)
[2020-12-10] MEDS: Multivitamin W/ Minerals 1 TAB PO SCH (08:16)
[2020-12-10] MEDS: Cyanocobalamin (Vitamin B-12) 1,000 MCG TAB PO SCH (08:17)
[2020-12-10] MEDS: clonazePAM 0.5 MG TAB PO SCH ×2 (08:18→20:31)
[2020-12-10] MEDS: Cholecalciferol (Vitamin D3) 400 UNITS TAB PO SCH (08:18)
[2020-12-10] MEDS: Fenofibrate Nanocrystallized 145 MG TAB PO SCH (08:18)
[2020-12-10] MEDS: Aspirin 81 mg Enteric Coated Tablet PO SCH (08:18)
[2020-12-10] MEDS: metFORMIN 500 MG TAB PO SCH (08:19)
[2020-12-10] MEDS: Pregabalin 75 MG CAP PO SCH ×2 (08:19→20:33)
[2020-12-10] MEDS: Furosemide 20 MG TAB PO SCH (08:19)
[2020-12-10] MEDS: Polyethylene Glycol 3350 17 GM Packet PO SCH (08:21)
[2020-12-10] MEDS: Lisinopril 5 MG TAB PO SCH (08:29)
[2020-12-10] MEDS: Atorvastatin Calcium 10 MG TAB PO SCH (20:32)
[2020-12-11] MEDS: traMADol HCl 50 MG TAB PO PRN ×2 (01:58→20:02)
[2020-12-11] MEDS: Aspirin 81 mg Enteric Coated Tablet PO SCH (08:26)
[2020-12-11] MEDS: Pregabalin 75 MG CAP PO SCH ×2 (08:27→20:04)
[2020-12-11] MEDS: Cholecalciferol (Vitamin D3) 400 UNITS TAB PO SCH (08:28)
[2020-12-11] MEDS: clonazePAM 0.5 MG TAB PO SCH ×2 (08:28→20:03)
[2020-12-11] MEDS: Furosemide 20 MG TAB PO SCH (08:28)
[2020-12-11] MEDS: Cyanocobalamin (Vitamin B-12) 1,000 MCG TAB PO SCH (08:28)
[2020-12-11] MEDS: Fenofibrate Nanocrystallized 145 MG TAB PO SCH (08:28)
[2020-12-11] MEDS: Multivitamin W/ Minerals 1 TAB PO SCH (08:29)
[2020-12-11] MEDS: metFORMIN 500 MG TAB PO SCH (08:29)
[2020-12-11] MEDS: Polyethylene Glycol 3350 17 GM Packet PO SCH (08:34)
[2020-12-11] MEDS: Lisinopril 5 MG TAB PO SCH (08:39)
[2020-12-11] MEDS ORDERED: Iopamidol 370 76% 100 ML VIAL ONE (17:14)
[2020-12-11] MEDS: Atorvastatin Calcium 10 MG TAB PO SCH (20:05)
[2020-12-12] MEDS: traMADol HCl 50 MG TAB PO PRN (03:21)
[2020-12-12] MEDS: Pregabalin 75 MG CAP PO SCH ×2 (08:22→20:26)
[2020-12-12] MEDS: Cholecalciferol (Vitamin D3) 400 UNITS TAB PO SCH (08:24)
[2020-12-12] MEDS: Cyanocobalamin (Vitamin B-12) 1,000 MCG TAB PO SCH (08:24)
[2020-12-12] MEDS: Lisinopril 5 MG TAB PO SCH (08:25)
[2020-12-12] MEDS: clonazePAM 0.5 MG TAB PO SCH ×2 (08:28→20:25)
[2020-12-12] MEDS: Aspirin 81 mg Enteric Coated Tablet PO SCH (08:28)
[2020-12-12] MEDS: Multivitamin W/ Minerals 1 TAB PO SCH (08:28)
[2020-12-12] MEDS: metFORMIN 500 MG TAB PO SCH (08:28)
[2020-12-12] MEDS: Fenofibrate Nanocrystallized 145 MG TAB PO SCH (08:28)
[2020-12-12] MEDS: Furosemide 20 MG TAB PO SCH (08:28)
[2020-12-12] MEDS: Polyethylene Glycol 3350 17 GM Packet PO SCH (08:36)
[2020-12-12] MEDS: Atorvastatin Calcium 10 MG TAB PO SCH (20:27)
[2020-12-13] MEDS: Multivitamin W/ Minerals 1 TAB PO SCH (08:24)
[2020-12-13] MEDS: Aspirin 81 mg Enteric Coated Tablet PO SCH (08:24)
[2020-12-13] MEDS: Polyethylene Glycol 3350 17 GM Packet PO SCH (08:25)
[2020-12-13] MEDS: Fenofibrate Nanocrystallized 145 MG TAB PO SCH (08:25)
[2020-12-13] MEDS: Cholecalciferol (Vitamin D3) 400 UNITS TAB PO SCH (08:26)
[2020-12-13] MEDS: Cyanocobalamin (Vitamin B-12) 1,000 MCG TAB PO SCH (08:26)
[2020-12-13] MEDS: clonazePAM 0.5 MG TAB PO SCH ×2 (08:27→20:21)
[2020-12-13] MEDS: Pregabalin 75 MG CAP PO SCH ×2 (08:28→20:19)
[2020-12-13] MEDS: metFORMIN 500 MG TAB PO SCH (08:31)
[2020-12-13] MEDS: Furosemide 20 MG TAB PO SCH (08:34)
[2020-12-13] MEDS: Lisinopril 5 MG TAB PO SCH (08:35)
[2020-12-13] MEDS: Atorvastatin Calcium 10 MG TAB PO SCH (20:18)
[2020-12-14] MEDS: Fenofibrate Nanocrystallized 145 MG TAB PO SCH (08:40)
[2020-12-14] MEDS: clonazePAM 0.5 MG TAB PO SCH ×2 (08:41→21:04)
[2020-12-14] MEDS: Cholecalciferol (Vitamin D3) 400 UNITS TAB PO SCH (08:41)
[2020-12-14] MEDS: Pregabalin 75 MG CAP PO SCH ×2 (08:42→21:04)
[2020-12-14] MEDS: Furosemide 20 MG TAB PO SCH (08:45)
[2020-12-14] MEDS: metFORMIN 500 MG TAB PO SCH (08:45)
[2020-12-14] MEDS: Lisinopril 5 MG TAB PO SCH (08:46)
[2020-12-14] MEDS: Aspirin 81 mg Enteric Coated Tablet PO SCH (08:48)
[2020-12-14] MEDS: Cyanocobalamin (Vitamin B-12) 1,000 MCG TAB PO SCH (08:48)
[2020-12-14] MEDS: Multivitamin W/ Minerals 1 TAB PO SCH (08:49)
[2020-12-14] MEDS: Polyethylene Glycol 3350 17 GM Packet PO SCH (08:53)
[2020-12-14] MEDS: Atorvastatin Calcium 10 MG TAB PO SCH (21:04)
[2020-12-15] MEDS: Cholecalciferol (Vitamin D3) 400 UNITS TAB PO SCH (09:31)
[2020-12-15] MEDS: Pregabalin 75 MG CAP PO SCH ×2 (09:31→20:28)
[2020-12-15] MEDS: clonazePAM 0.5 MG TAB PO SCH ×2 (09:32→20:28)
[2020-12-15] MEDS: Multivitamin W/ Minerals 1 TAB PO SCH (09:32)
[2020-12-15] MEDS: metFORMIN 500 MG TAB PO SCH (09:32)
[2020-12-15] MEDS: Cyanocobalamin (Vitamin B-12) 1,000 MCG TAB PO SCH (09:33)
[2020-12-15] MEDS: Furosemide 20 MG TAB PO SCH (09:33)
[2020-12-15] MEDS: Aspirin 81 mg Enteric Coated Tablet PO SCH (09:33)
[2020-12-15] MEDS: Lisinopril 5 MG TAB PO SCH (09:33)
[2020-12-15] MEDS: Fenofibrate Nanocrystallized 145 MG TAB PO SCH (09:33)
[2020-12-15] MEDS: Polyethylene Glycol 3350 17 GM Packet PO SCH (09:36)
[2020-12-15] MEDS: Atorvastatin Calcium 10 MG TAB PO SCH (20:28)
[2020-12-16] MEDS: Aspirin 81 mg Enteric Coated Tablet PO SCH (10:45)
[2020-12-16] MEDS: Cyanocobalamin (Vitamin B-12) 1,000 MCG TAB PO SCH (10:45)
[2020-12-16] MEDS: Multivitamin W/ Minerals 1 TAB PO SCH (10:46)
[2020-12-16] MEDS: Pregabalin 75 MG CAP PO SCH ×2 (10:47→20:12)
[2020-12-16] MEDS: Cholecalciferol (Vitamin D3) 400 UNITS TAB PO SCH (10:47)
[2020-12-16] MEDS: Fenofibrate Nanocrystallized 145 MG TAB PO SCH (10:47)
[2020-12-16] MEDS: metFORMIN 500 MG TAB PO SCH (10:47)
[2020-12-16] MEDS: Furosemide 20 MG TAB PO SCH (10:48)
[2020-12-16] MEDS: Lisinopril 5 MG TAB PO SCH (10:48)
[2020-12-16] MEDS: clonazePAM 0.5 MG TAB PO SCH ×2 (10:51→20:11)
[2020-12-16] MEDS: Polyethylene Glycol 3350 17 GM Packet PO SCH (10:52)
[2020-12-16] MEDS: Atorvastatin Calcium 10 MG TAB PO SCH (20:11)
[2020-12-17] MEDS: Polyethylene Glycol 3350 17 GM Packet PO SCH (08:23)
[2020-12-17] MEDS: Pregabalin 75 MG CAP PO SCH ×2 (08:23→19:58)
[2020-12-17] MEDS: clonazePAM 0.5 MG TAB PO SCH ×2 (08:24→19:58)
[2020-12-17] MEDS: Aspirin 81 mg Enteric Coated Tablet PO SCH (08:25)
[2020-12-17] MEDS: metFORMIN 500 MG TAB PO SCH (08:25)
[2020-12-17] MEDS: Lisinopril 5 MG TAB PO SCH (08:25)
[2020-12-17] MEDS: Fenofibrate Nanocrystallized 145 MG TAB PO SCH (08:26)
[2020-12-17] MEDS: Docusate 100 MG CAP PO PRN (08:27)
[2020-12-17] MEDS: Multivitamin W/ Minerals 1 TAB PO SCH (08:27)
[2020-12-17] MEDS: Furosemide 20 MG TAB PO SCH (08:27)
[2020-12-17] MEDS: Cholecalciferol (Vitamin D3) 400 UNITS TAB PO SCH (08:28)
[2020-12-17] MEDS: Cyanocobalamin (Vitamin B-12) 1,000 MCG TAB PO SCH (08:28)
[2020-12-17] MEDS ORDERED: Furosemide 40 MG TAB ONE (10:41)
[2020-12-17] MEDS ORDERED: Furosemide 100 MG/10 ML VIAL ONE (10:41)
[2020-12-17 14:13] VITALS: BMI 38.6
[2020-12-17] MEDS: Atorvastatin Calcium 10 MG TAB PO SCH (19:58)
[2020-12-18] MEDS: Aspirin 81 mg Enteric Coated Tablet PO SCH (09:43)
[2020-12-18] MEDS: metFORMIN 500 MG TAB PO SCH (09:43)
[2020-12-18] MEDS: Fenofibrate Nanocrystallized 145 MG TAB PO SCH (09:43)
[2020-12-18] MEDS: Docusate 100 MG CAP PO PRN (09:43)
[2020-12-18] MEDS: Polyethylene Glycol 3350 17 GM Packet PO SCH (09:43)
[2020-12-18] MEDS: Multivitamin W/ Minerals 1 TAB PO SCH (09:43)
[2020-12-18] MEDS: Pregabalin 75 MG CAP PO SCH ×2 (09:44→20:21)
[2020-12-18] MEDS: Lisinopril 5 MG TAB PO SCH (09:45)
[2020-12-18] MEDS: clonazePAM 0.5 MG TAB PO SCH ×2 (09:45→20:21)
[2020-12-18] MEDS: Cholecalciferol (Vitamin D3) 400 UNITS TAB PO SCH (09:46)
[2020-12-18] MEDS: Furosemide 20 MG TAB PO SCH (09:46)
[2020-12-18] MEDS: Cyanocobalamin (Vitamin B-12) 1,000 MCG TAB PO SCH (09:47)
[2020-12-18] MEDS: Atorvastatin Calcium 10 MG TAB PO SCH (20:21)
[2020-12-19 05:59] VITALS: TEMP 97.4
[2020-12-19] MEDS: Polyethylene Glycol 3350 17 GM Packet PO SCH (09:00)
[2020-12-19] MEDS: Multivitamin W/ Minerals 1 TAB PO SCH (09:01)
[2020-12-19] MEDS: Cyanocobalamin (Vitamin B-12) 1,000 MCG TAB PO SCH (09:02)
[2020-12-19] MEDS: Cholecalciferol (Vitamin D3) 400 UNITS TAB PO SCH (09:02)
[2020-12-19] MEDS: Aspirin 81 mg Enteric Coated Tablet PO SCH (09:04)
[2020-12-19] MEDS: Pregabalin 75 MG CAP PO SCH (09:04)
[2020-12-19] MEDS: Docusate 100 MG CAP PO PRN (09:04)
[2020-12-19] MEDS: clonazePAM 0.5 MG TAB PO SCH (09:05)
[2020-12-19] MEDS: metFORMIN 500 MG TAB PO SCH (09:05)
[2020-12-19] MEDS: Lisinopril 5 MG TAB PO SCH (09:05)
[2020-12-19] MEDS: Fenofibrate Nanocrystallized 145 MG TAB PO SCH (09:06)
[2020-12-19] MEDS: Furosemide 20 MG TAB PO SCH (09:06)
[2020-12-19 09:07] VITALS: BP 124/60
== END 2020-12-19 11:15 | disposition home or self-care (01) | DRG 948 ==
LOC: BURMED 19:00
PROVIDERS: ADMIT Family Medicine; ATTEND Family Medicine
DX: R53.81 Other malaise (principal); R47.01 Aphasia; F41.9 Anxiety disorder, unspecified; K21.9 Gastro-esophageal reflux disease without esophagitis; K59.00 Constipation, unspecified; E66.01 Morbid (severe) obesity due to excess calories; E78.5 Hyperlipidemia, unspecified; I10 Essential (primary) hypertension; M54.9 Dorsalgia, unspecified; E11.40 Type 2 diabetes mellitus with diabetic neuropathy, unspecified; F32.9 Major depressive disorder, single episode, unspecified; G89.29 Other chronic pain; M54.2 Cervicalgia; Z96.653 Presence of artificial knee joint, bilateral; D64.9 Anemia, unspecified; E53.8 Deficiency of other specified B group vitamins; Z68.38 Body mass index [BMI] 38.0-38.9, adult; Z79.899 Other long term (current) drug therapy; Z79.82 Long term (current) use of aspirin; Z79.84 Long term (current) use of oral hypoglycemic drugs; Z86.73 Personal history of transient ischemic attack (TIA), and cerebral infarction without residual deficits; Z98.890 Other specified postprocedural states
CPT/HCPCS: 36416; 80053; 81001; 83880; J1940; Q9967

== ENCOUNTER 2020-12-26 10:25 | Inpatient (IN) | payer MEDICARE ==
[2020-12-26 11:20] LABS: Hemoglobin 13.6 g/dL (12.0-16.0); Mean Corpuscular HGB CONC 32.5 g/dL (32.0-36.0); Mean Corpuscular Volume 95.2 fL (78.0-98.0); Mean Platelet Volume 6.7 fL (7.4-10.4); Platelet Count 296 thou/uL (130-400); RBC Distribution Width 13.7 % (11.5-14.5); Red Blood Cell (RBC) Count 4.41 mill/uL (4.20-5.40); White Blood Cell (WBC) Count 7.9 thou/uL (4.8-10.8)
[2020-12-26 11:35] LABS: ALT (SGPT) 14 U/L (8-55); AST (SGOT) 23 U/L (5-34); Albumin 4.1 g/dL (3.4-4.8); Alkaline Phosphatase 32 U/L (40-110); Anion Gap 25 mmol/L (10-20); BUN (Urea Nitrogen) 10 mg/dL (9.8-20.1); Bilirubin, Total 0.9 mg/dL (0.2-1.2); Calc. Creatinine Clearance 0 mL/min (70-130); Calcium 9.9 mg/dL (7.8-10.44); Carbon Dioxide 17 mmol/L (23-31); Chloride 101 mmol/L (98-107); Globulin 3.7 g/dL (2.4-3.5); Glucose 107 mg/dL (83-110); Lipase 37 U/L (8-78); Magnesium 1.2 mg/dL (1.6-2.6); Protein, Total 7.8 g/dL (5.8-8.1); Sodium 139 mmol/L (136-145)
[2020-12-26 11:40] LABS: Band 7 % (5-11); Lymphocytes 8 % (21-51); MDiff Complete? YES; Monocytes 13 % (0-10); Neutrophil 71 % (42-75)
[2020-12-26 12:24] LABS: Bilirubin Large (Negative); Blood, Urine Negative (Negative); Clarity Cloudy (Clear); Glucose, Urine (Dipstick) Negative (Negative); Ketone, Urine > or equal to 80 mg/dL (Negative); Leukocyte Negative (Negative); Nitrite Negative (Negative); Protein, Urine (Dipstick) 100 mg/dL (Neg-Trace); Specific Gravity, Urine 1.025 (1.005-1.030); pH, Urine 5.5 (5.0-9.0)
[2020-12-26 12:28] LABS: Bacteria/HPF 2+ HPF (None Seen); Mucous/LPF 4+ LPF (<2+); RBC/HPF 0-3 HPF (0-3); Squamous Epithelial 0-3 HPF (0-3)
[2020-12-26] MEDS ORDERED: Sodium Chloride 0.9% 1,000 ML IV SCH (13:00)
[2020-12-26] MEDS ORDERED: cefTRIAXone\\ROCEPHIN 1 GM VIAL ONE (13:07)
[2020-12-26] MEDS ORDERED: Magnesium 2 GM/50 ML BAG (IN WATER) ONE (13:07)
[2020-12-26] MEDS ORDERED: Aspirin Chewable 81 MG TAB ONE (13:14)
[2020-12-26] MEDS: clonazePAM 0.5 MG TAB PO SCH (20:09)
[2020-12-26] MEDS: Acetaminophen 325 MG TAB PO PRN (20:09)
[2020-12-26] MEDS: Pregabalin 75 MG CAP PO SCH (20:12)
[2020-12-26] MEDS: Sodium Chloride 0.9% 1,000 ML IV SCH (20:13)
[2020-12-26] MEDS: Atorvastatin Calcium 10 MG TAB PO SCH (21:02)
[2020-12-26] MEDS: Enoxaparin Sodium 40 MG/0.4 ML SYRINGE SC SCH (23:45)
[2020-12-27] MEDS: Sodium Chloride 0.9% 1,000 ML IV SCH (05:27)
[2020-12-27] MEDS ORDERED: Ondansetron ODT 4 MG TAB PO PRN (09:43)
[2020-12-27] MEDS: Pregabalin 75 MG CAP PO SCH ×2 (11:37→20:41)
[2020-12-27] MEDS: Ibuprofen 200 MG TAB PO PRN ×2 (11:42→20:40)
[2020-12-27] MEDS: Lisinopril 5 MG TAB PO SCH (13:12)
[2020-12-27] MEDS: clonazePAM 0.5 MG TAB PO SCH ×2 (13:12→20:40)
[2020-12-27] MEDS: metFORMIN 500 MG TAB PO SCH (13:14)
[2020-12-27] MEDS: Aspirin 81 mg Enteric Coated Tablet PO SCH (13:14)
[2020-12-27] MEDS: Furosemide 20 MG TAB PO SCH (13:14)
[2020-12-27] MEDS: Cholecalciferol (Vitamin D3) 400 UNITS TAB PO SCH (13:19)
[2020-12-27] MEDS: Calcium Carbonate 500 MG ChewTAB PO SCH (13:19)
[2020-12-27] MEDS: Cyanocobalamin (Vitamin B-12) 1,000 MCG TAB PO SCH (13:19)
[2020-12-27] MEDS: Fenofibrate Nanocrystallized 145 MG TAB PO SCH (13:19)
[2020-12-27] MEDS: Multivitamin W/ Minerals 1 TAB PO SCH (13:20)
[2020-12-27] MEDS: cefTRIAXone\\ROCEPHIN 1 GM in Sodium Chloride 0.9% 100 ML IVPB SCH (13:26)
[2020-12-27 17:42] LABS: SARS-CoV-2 PCR by NAA Not Detected (NotDetected)
[2020-12-27] MEDS: Enoxaparin Sodium 40 MG/0.4 ML SYRINGE SC SCH (20:42)
[2020-12-27] MEDS: Atorvastatin Calcium 10 MG TAB PO SCH (20:42)
[2020-12-28 05:27] LABS: Mean Corpuscular HGB CONC 32.5 g/dL (32.0-36.0); Mean Corpuscular Hemoglobin 30.7 pg (27.0-31.0); Mean Corpuscular Volume 94.4 fL (78.0-98.0); Platelet Count 281 thou/uL (130-400); RBC Distribution Width 14.2 % (11.5-14.5); White Blood Cell (WBC) Count 5.3 thou/uL (4.8-10.8)
[2020-12-28 05:29] LABS: #Basophils 0.1 thou/uL (0.0-0.2); #Eosinphils 0.3 thou/uL (0.0-0.7); #Lymphocytes 1.5 thou/uL (1.20-3.40); #Monocytes 0.4 thou/uL (0.11-0.59); #Neutrophils 3.1 thou/uL (1.40-6.50); %Eosinophils 4.8 % (0.0-10.0); %Lymphocytes 27.8 % (21.0-51.0); %Monocytes 7.9 % (0.0-10.0); %Neutrophils 58.5 % (42.0-75.0)
[2020-12-28 05:35] LABS: ALT (SGPT) 9 U/L (8-55); AST (SGOT) 15 U/L (5-34); Albumin 3.2 g/dL (3.4-4.8); Alkaline Phosphatase 33 U/L (40-110); Anion Gap 14 mmol/L (10-20); BUN (Urea Nitrogen) 7 mg/dL (9.8-20.1); Bilirubin, Total 0.5 mg/dL (0.2-1.2); Calc. Creatinine Clearance 74 mL/min (70-130); Calcium 8.7 mg/dL (7.8-10.44); Carbon Dioxide 25 mmol/L (23-31); Chloride 106 mmol/L (98-107); Globulin 2.9 g/dL (2.4-3.5); Glucose 115 mg/dL (83-110); Potassium 3.5 mmol/L (3.5-5.1); Protein, Total 6.1 g/dL (5.8-8.1); Sodium 141 mmol/L (136-145)
[2020-12-28 06:21] LABS: Platelet Morphology Comment Appears Adequate; RBC Morphology Normal
[2020-12-28] MEDS: Calcium Carbonate 500 MG ChewTAB PO SCH (08:26)
[2020-12-28] MEDS: Pregabalin 75 MG CAP PO SCH ×2 (08:27→20:24)
[2020-12-28] MEDS: Lisinopril 5 MG TAB PO SCH (08:29)
[2020-12-28] MEDS: Cyanocobalamin (Vitamin B-12) 1,000 MCG TAB PO SCH (08:29)
[2020-12-28] MEDS: Aspirin 81 mg Enteric Coated Tablet PO SCH (08:29)
[2020-12-28] MEDS: Fenofibrate Nanocrystallized 145 MG TAB PO SCH (08:30)
[2020-12-28] MEDS: Multivitamin W/ Minerals 1 TAB PO SCH (08:30)
[2020-12-28] MEDS: clonazePAM 0.5 MG TAB PO SCH ×2 (08:30→20:25)
[2020-12-28] MEDS: Cholecalciferol (Vitamin D3) 400 UNITS TAB PO SCH (08:31)
[2020-12-28] MEDS: Furosemide 20 MG TAB PO SCH (08:31)
[2020-12-28] MEDS: metFORMIN 500 MG TAB PO SCH (08:31)
[2020-12-28] MEDS: Acetaminophen 325 MG TAB PO PRN (08:59)
[2020-12-28] MEDS ORDERED: Melatonin 3 MG TAB PO PRN (12:22)
[2020-12-28] MEDS: cefTRIAXone\\ROCEPHIN 1 GM in Sodium Chloride 0.9% 100 ML IVPB SCH (12:25)
[2020-12-28] MEDS: Enoxaparin Sodium 40 MG/0.4 ML SYRINGE SC SCH (20:20)
[2020-12-28] MEDS: Atorvastatin Calcium 10 MG TAB PO SCH (20:23)
[2020-12-28] MEDS: Ibuprofen 200 MG TAB PO PRN (21:51)
[2020-12-29 03:00] VITALS: BMI 36.6
[2020-12-29 04:25] VITALS: TEMP 98.2
[2020-12-29] MEDS ORDERED: Polyethylene Glycol 3350 17 GM Packet PO PRN (07:19)
[2020-12-29] MEDS: Calcium Carbonate 500 MG ChewTAB PO SCH (07:55)
[2020-12-29] MEDS: Pregabalin 75 MG CAP PO SCH (10:00)
[2020-12-29] MEDS: clonazePAM 0.5 MG TAB PO SCH (10:02)
[2020-12-29] MEDS: metFORMIN 500 MG TAB PO SCH (10:03)
[2020-12-29] MEDS: Lisinopril 5 MG TAB PO SCH (10:08)
[2020-12-29 10:11] VITALS: BP 170/70
[2020-12-29] MEDS: Fenofibrate Nanocrystallized 145 MG TAB PO SCH (10:12)
[2020-12-29] MEDS: Cyanocobalamin (Vitamin B-12) 1,000 MCG TAB PO SCH (10:12)
[2020-12-29] MEDS: Aspirin 81 mg Enteric Coated Tablet PO SCH (10:12)
[2020-12-29] MEDS: Cholecalciferol (Vitamin D3) 400 UNITS TAB PO SCH (10:12)
[2020-12-29] MEDS: Multivitamin W/ Minerals 1 TAB PO SCH (10:13)
[2020-12-29] MEDS: Furosemide 20 MG TAB PO SCH (10:13)
[2020-12-29] MEDS: cefTRIAXone\\ROCEPHIN 1 GM in Sodium Chloride 0.9% 100 ML IVPB SCH (12:49)
== END 2020-12-29 14:57 | disposition swing bed (61) | DRG 690 ==
LOC: BURERS 10:25 → BURMED 13:28
PROVIDERS: ADMIT Family Medicine; ATTEND Family Medicine
DX: N39.0 Urinary tract infection, site not specified (principal); E11.40 Type 2 diabetes mellitus with diabetic neuropathy, unspecified; E78.5 Hyperlipidemia, unspecified; G89.29 Other chronic pain; F41.9 Anxiety disorder, unspecified; F32.9 Major depressive disorder, single episode, unspecified; I10 Essential (primary) hypertension; E66.9 Obesity, unspecified; N32.81 Overactive bladder; Z96.653 Presence of artificial knee joint, bilateral; E86.0 Dehydration; R11.10 Vomiting, unspecified; K59.00 Constipation, unspecified; R53.81 Other malaise; Z68.36 Body mass index [BMI] 36.0-36.9, adult; Z86.73 Personal history of transient ischemic attack (TIA), and cerebral infarction without residual deficits; Z87.440 Personal history of urinary (tract) infections; Z79.82 Long term (current) use of aspirin; Z91.14 Patient's other noncompliance with medication regimen; Z79.84 Long term (current) use of oral hypoglycemic drugs
CPT/HCPCS: 36415; 36416; 51701; 70450; 71045; 80053; 81003; 81015; 83605; 83690; 83735; 84443; 84484; 85025; 87040; 87086; 87149; 87635; 96365; J0696; J1650; J3475; J3490; J7050; Q0162; U0003; U0005

== ENCOUNTER 2020-12-29 15:00 | Inpatient (IN) | payer MEDICARE ==
[2020-12-29] MEDS ORDERED: Ondansetron ODT 4 MG TAB PO PRN (16:15)
[2020-12-29 16:16] VITALS: BMI 36.6
[2020-12-29] MEDS ORDERED: Polyethylene Glycol 3350 17 GM Packet PO PRN (16:16)
[2020-12-29] MEDS: Enoxaparin Sodium 40 MG/0.4 ML SYRINGE SC SCH (20:50)
[2020-12-29] MEDS: Atorvastatin Calcium 10 MG TAB PO SCH (20:51)
[2020-12-29] MEDS: clonazePAM 0.5 MG TAB PO SCH (20:51)
[2020-12-29] MEDS: Melatonin 3 MG TAB PO PRN (20:51)
[2020-12-29] MEDS: Pregabalin 75 MG CAP PO SCH (20:52)
[2020-12-29] MEDS: Acetaminophen 325 MG TAB PO PRN (20:54)
[2020-12-30] MEDS: Ibuprofen 200 MG TAB PO PRN ×3 (00:06→21:11)
[2020-12-30] MEDS: clonazePAM 0.5 MG TAB PO SCH ×2 (08:37→21:11)
[2020-12-30] MEDS: metFORMIN 500 MG TAB PO SCH (08:37)
[2020-12-30] MEDS: Calcium Carbonate 500 MG ChewTAB PO SCH (08:37)
[2020-12-30] MEDS: Multivitamin W/ Minerals 1 TAB PO SCH (08:37)
[2020-12-30] MEDS: Cyanocobalamin (Vitamin B-12) 1,000 MCG TAB PO SCH (08:38)
[2020-12-30] MEDS: Fenofibrate Nanocrystallized 145 MG TAB PO SCH (08:38)
[2020-12-30] MEDS: Aspirin 81 mg Enteric Coated Tablet PO SCH (08:38)
[2020-12-30] MEDS: Furosemide 20 MG TAB PO SCH (08:38)
[2020-12-30] MEDS: Cholecalciferol 1,000 UNITS (25 MCG) TAB PO SCH (08:40)
[2020-12-30] MEDS: Pregabalin 75 MG CAP PO SCH ×2 (08:40→21:10)
[2020-12-30] MEDS: Lisinopril 5 MG TAB PO SCH (08:41)
[2020-12-30] MEDS ORDERED: cefTRIAXone\\ROCEPHIN 1 GM VIAL ONE (12:43)
[2020-12-30] MEDS ORDERED: cefTRIAXone\\ROCEPHIN 1 GM in Sodium Chloride 0.9% 100 ML IVPB SCH (13:00)
[2020-12-30] MEDS: Enoxaparin Sodium 40 MG/0.4 ML SYRINGE SC SCH (21:09)
[2020-12-30] MEDS: Melatonin 3 MG TAB PO PRN (21:12)
[2020-12-30] MEDS: Atorvastatin Calcium 10 MG TAB PO SCH (21:12)
[2020-12-31] MEDS: Calcium Carbonate 500 MG ChewTAB PO SCH (08:50)
[2020-12-31] MEDS: Pregabalin 75 MG CAP PO SCH ×2 (08:51→21:28)
[2020-12-31] MEDS: Furosemide 20 MG TAB PO SCH (08:52)
[2020-12-31] MEDS: metFORMIN 500 MG TAB PO SCH (08:52)
[2020-12-31] MEDS: Cyanocobalamin (Vitamin B-12) 1,000 MCG TAB PO SCH (08:52)
[2020-12-31] MEDS: Lisinopril 5 MG TAB PO SCH (08:52)
[2020-12-31] MEDS: Cholecalciferol 1,000 UNITS (25 MCG) TAB PO SCH (08:52)
[2020-12-31] MEDS: Multivitamin W/ Minerals 1 TAB PO SCH (08:52)
[2020-12-31] MEDS: Fenofibrate Nanocrystallized 145 MG TAB PO SCH (08:53)
[2020-12-31] MEDS: Aspirin 81 mg Enteric Coated Tablet PO SCH (08:53)
[2020-12-31] MEDS: clonazePAM 0.5 MG TAB PO SCH ×2 (08:53→21:29)
[2020-12-31] MEDS: Melatonin 3 MG TAB PO PRN (21:29)
[2020-12-31] MEDS: Atorvastatin Calcium 10 MG TAB PO SCH (21:29)
[2020-12-31] MEDS: Enoxaparin Sodium 40 MG/0.4 ML SYRINGE SC SCH (21:29)
[2021-01-01] MEDS: Pregabalin 75 MG CAP PO SCH ×2 (08:53→21:25)
[2021-01-01] MEDS: Calcium Carbonate 500 MG ChewTAB PO SCH (08:54)
[2021-01-01] MEDS: Cyanocobalamin (Vitamin B-12) 1,000 MCG TAB PO SCH (08:54)
[2021-01-01] MEDS: Furosemide 20 MG TAB PO SCH (08:55)
[2021-01-01] MEDS: Cholecalciferol 1,000 UNITS (25 MCG) TAB PO SCH (08:55)
[2021-01-01] MEDS: metFORMIN 500 MG TAB PO SCH (08:55)
[2021-01-01] MEDS: Lisinopril 5 MG TAB PO SCH (08:55)
[2021-01-01] MEDS: Fenofibrate Nanocrystallized 145 MG TAB PO SCH (08:55)
[2021-01-01] MEDS: clonazePAM 0.5 MG TAB PO SCH ×2 (08:55→21:25)
[2021-01-01] MEDS: Multivitamin W/ Minerals 1 TAB PO SCH (08:55)
[2021-01-01] MEDS: Aspirin 81 mg Enteric Coated Tablet PO SCH (08:55)
[2021-01-01] MEDS: Acetaminophen 325 MG TAB PO PRN (16:44)
[2021-01-01] MEDS: Atorvastatin Calcium 10 MG TAB PO SCH (21:24)
[2021-01-01] MEDS: Enoxaparin Sodium 40 MG/0.4 ML SYRINGE SC SCH (21:27)
[2021-01-02] MEDS: Furosemide 20 MG TAB PO SCH (08:35)
[2021-01-02] MEDS: Calcium Carbonate 500 MG ChewTAB PO SCH (08:35)
[2021-01-02] MEDS: Lisinopril 5 MG TAB PO SCH (08:36)
[2021-01-02] MEDS: clonazePAM 0.5 MG TAB PO SCH ×2 (08:36→20:21)
[2021-01-02] MEDS: Aspirin 81 mg Enteric Coated Tablet PO SCH (08:36)
[2021-01-02] MEDS: Pregabalin 75 MG CAP PO SCH ×2 (08:37→20:20)
[2021-01-02] MEDS: Cyanocobalamin (Vitamin B-12) 1,000 MCG TAB PO SCH (08:39)
[2021-01-02] MEDS: Fenofibrate Nanocrystallized 145 MG TAB PO SCH (08:39)
[2021-01-02] MEDS: metFORMIN 500 MG TAB PO SCH (08:39)
[2021-01-02] MEDS: Multivitamin W/ Minerals 1 TAB PO SCH (08:39)
[2021-01-02] MEDS: Cholecalciferol 1,000 UNITS (25 MCG) TAB PO SCH (08:39)
[2021-01-02] MEDS: Enoxaparin Sodium 40 MG/0.4 ML SYRINGE SC SCH (20:20)
[2021-01-02] MEDS: Atorvastatin Calcium 10 MG TAB PO SCH (20:21)
[2021-01-03] MEDS: Aspirin 81 mg Enteric Coated Tablet PO SCH (08:52)
[2021-01-03] MEDS: metFORMIN 500 MG TAB PO SCH (08:52)
[2021-01-03] MEDS: Pregabalin 75 MG CAP PO SCH ×2 (08:53→21:13)
[2021-01-03] MEDS: Cyanocobalamin (Vitamin B-12) 1,000 MCG TAB PO SCH (08:53)
[2021-01-03] MEDS: Multivitamin W/ Minerals 1 TAB PO SCH (08:53)
[2021-01-03] MEDS: Cholecalciferol 1,000 UNITS (25 MCG) TAB PO SCH (08:53)
[2021-01-03] MEDS: clonazePAM 0.5 MG TAB PO SCH ×2 (08:53→21:14)
[2021-01-03] MEDS: Calcium Carbonate 500 MG ChewTAB PO SCH (08:54)
[2021-01-03] MEDS: Fenofibrate Nanocrystallized 145 MG TAB PO SCH (08:54)
[2021-01-03] MEDS: Lisinopril 5 MG TAB PO SCH (08:55)
[2021-01-03] MEDS: Furosemide 20 MG TAB PO SCH (08:55)
[2021-01-03] MEDS: Ibuprofen 200 MG TAB PO PRN (08:59)
[2021-01-03] MEDS: Melatonin 3 MG TAB PO PRN (21:13)
[2021-01-03] MEDS: Enoxaparin Sodium 40 MG/0.4 ML SYRINGE SC SCH (21:13)
[2021-01-03] MEDS: Atorvastatin Calcium 10 MG TAB PO SCH (21:58)
[2021-01-04] MEDS: Calcium Carbonate 500 MG ChewTAB PO SCH (08:11)
[2021-01-04] MEDS: Multivitamin W/ Minerals 1 TAB PO SCH (08:12)
[2021-01-04] MEDS: Fenofibrate Nanocrystallized 145 MG TAB PO SCH (08:12)
[2021-01-04] MEDS: Cyanocobalamin (Vitamin B-12) 1,000 MCG TAB PO SCH (08:12)
[2021-01-04] MEDS: Pregabalin 75 MG CAP PO SCH ×2 (08:12→20:19)
[2021-01-04] MEDS: Aspirin 81 mg Enteric Coated Tablet PO SCH (08:12)
[2021-01-04] MEDS: Cholecalciferol 1,000 UNITS (25 MCG) TAB PO SCH (08:12)
[2021-01-04] MEDS: clonazePAM 0.5 MG TAB PO SCH ×2 (08:13→20:20)
[2021-01-04] MEDS: metFORMIN 500 MG TAB PO SCH (08:13)
[2021-01-04] MEDS: Lisinopril 5 MG TAB PO SCH (08:13)
[2021-01-04] MEDS: Furosemide 20 MG TAB PO SCH (08:13)
[2021-01-04] MEDS: Acetaminophen 325 MG TAB PO PRN (18:48)
[2021-01-04] MEDS: Atorvastatin Calcium 10 MG TAB PO SCH (20:20)
[2021-01-04] MEDS: Enoxaparin Sodium 40 MG/0.4 ML SYRINGE SC SCH (20:20)
[2021-01-05] MEDS: metFORMIN 500 MG TAB PO SCH (08:09)
[2021-01-05] MEDS: clonazePAM 0.5 MG TAB PO SCH ×2 (08:09→21:27)
[2021-01-05] MEDS: Fenofibrate Nanocrystallized 145 MG TAB PO SCH (08:10)
[2021-01-05] MEDS: Pregabalin 75 MG CAP PO SCH ×2 (08:10→21:28)
[2021-01-05] MEDS: Multivitamin W/ Minerals 1 TAB PO SCH (08:11)
[2021-01-05] MEDS: Lisinopril 5 MG TAB PO SCH (08:11)
[2021-01-05] MEDS: Calcium Carbonate 500 MG ChewTAB PO SCH (08:11)
[2021-01-05] MEDS: Furosemide 20 MG TAB PO SCH (08:11)
[2021-01-05] MEDS: Cholecalciferol 1,000 UNITS (25 MCG) TAB PO SCH (08:11)
[2021-01-05] MEDS: Aspirin 81 mg Enteric Coated Tablet PO SCH (08:13)
[2021-01-05] MEDS: Cyanocobalamin (Vitamin B-12) 1,000 MCG TAB PO SCH (08:13)
[2021-01-05] MEDS: Ibuprofen 200 MG TAB PO PRN (08:14)
[2021-01-05] MEDS: Atorvastatin Calcium 10 MG TAB PO SCH (21:27)
[2021-01-05] MEDS: Enoxaparin Sodium 40 MG/0.4 ML SYRINGE SC SCH (21:28)
[2021-01-06] MEDS: Pregabalin 75 MG CAP PO SCH ×2 (08:29→21:04)
[2021-01-06] MEDS: Multivitamin W/ Minerals 1 TAB PO SCH (08:30)
[2021-01-06] MEDS: Ibuprofen 200 MG TAB PO PRN (08:30)
[2021-01-06] MEDS: Cyanocobalamin (Vitamin B-12) 1,000 MCG TAB PO SCH (08:30)
[2021-01-06] MEDS: Lisinopril 5 MG TAB PO SCH (08:31)
[2021-01-06] MEDS: metFORMIN 500 MG TAB PO SCH (08:31)
[2021-01-06] MEDS: Calcium Carbonate 500 MG ChewTAB PO SCH (08:32)
[2021-01-06] MEDS: Aspirin 81 mg Enteric Coated Tablet PO SCH (08:32)
[2021-01-06] MEDS: Cholecalciferol 1,000 UNITS (25 MCG) TAB PO SCH (08:32)
[2021-01-06] MEDS: Fenofibrate Nanocrystallized 145 MG TAB PO SCH (08:32)
[2021-01-06] MEDS: Furosemide 20 MG TAB PO SCH ×2 (08:32→11:08)
[2021-01-06] MEDS: clonazePAM 0.5 MG TAB PO SCH ×2 (08:32→21:05)
[2021-01-06] MEDS: Enoxaparin Sodium 40 MG/0.4 ML SYRINGE SC SCH (21:05)
[2021-01-06] MEDS: Atorvastatin Calcium 10 MG TAB PO SCH (21:05)
[2021-01-07] MEDS: Fenofibrate Nanocrystallized 145 MG TAB PO SCH (09:14)
[2021-01-07] MEDS: Calcium Carbonate 500 MG ChewTAB PO SCH (09:15)
[2021-01-07] MEDS: Lisinopril 5 MG TAB PO SCH (09:16)
[2021-01-07] MEDS: Cyanocobalamin (Vitamin B-12) 1,000 MCG TAB PO SCH (09:16)
[2021-01-07] MEDS: Cholecalciferol 1,000 UNITS (25 MCG) TAB PO SCH (09:16)
[2021-01-07] MEDS: Multivitamin W/ Minerals 1 TAB PO SCH (09:16)
[2021-01-07] MEDS: Pregabalin 75 MG CAP PO SCH ×2 (09:17→21:04)
[2021-01-07] MEDS: metFORMIN 500 MG TAB PO SCH (09:17)
[2021-01-07] MEDS: clonazePAM 0.5 MG TAB PO SCH ×2 (09:18→21:03)
[2021-01-07] MEDS: Ibuprofen 200 MG TAB PO PRN (09:18)
[2021-01-07] MEDS: Aspirin 81 mg Enteric Coated Tablet PO SCH (09:34)
[2021-01-07] MEDS: Furosemide 20 MG TAB PO SCH (18:13)
[2021-01-07] MEDS: Enoxaparin Sodium 40 MG/0.4 ML SYRINGE SC SCH (21:03)
[2021-01-07] MEDS: Atorvastatin Calcium 10 MG TAB PO SCH (21:04)
[2021-01-08] MEDS: Pregabalin 75 MG CAP PO SCH ×2 (08:07→20:56)
[2021-01-08] MEDS: Calcium Carbonate 500 MG ChewTAB PO SCH (08:08)
[2021-01-08] MEDS: clonazePAM 0.5 MG TAB PO SCH ×2 (08:09→20:55)
[2021-01-08] MEDS: Lisinopril 5 MG TAB PO SCH (08:09)
[2021-01-08] MEDS: Multivitamin W/ Minerals 1 TAB PO SCH (08:13)
[2021-01-08] MEDS: Furosemide 20 MG TAB PO SCH (08:14)
[2021-01-08] MEDS: Cyanocobalamin (Vitamin B-12) 1,000 MCG TAB PO SCH (08:14)
[2021-01-08] MEDS: Aspirin 81 mg Enteric Coated Tablet PO SCH (08:14)
[2021-01-08] MEDS: Cholecalciferol 1,000 UNITS (25 MCG) TAB PO SCH (08:15)
[2021-01-08] MEDS: metFORMIN 500 MG TAB PO SCH (08:15)
[2021-01-08] MEDS: Fenofibrate Nanocrystallized 145 MG TAB PO SCH (08:15)
[2021-01-08] MEDS: Atorvastatin Calcium 10 MG TAB PO SCH (20:55)
[2021-01-08] MEDS: Enoxaparin Sodium 40 MG/0.4 ML SYRINGE SC SCH (20:55)
[2021-01-09 06:05] VITALS: TEMP 97.6
[2021-01-09] MEDS: Fenofibrate Nanocrystallized 145 MG TAB PO SCH (08:45)
[2021-01-09] MEDS: metFORMIN 500 MG TAB PO SCH (08:45)
[2021-01-09] MEDS: Aspirin 81 mg Enteric Coated Tablet PO SCH (08:45)
[2021-01-09] MEDS: Calcium Carbonate 500 MG ChewTAB PO SCH (08:45)
[2021-01-09] MEDS: Multivitamin W/ Minerals 1 TAB PO SCH (08:46)
[2021-01-09] MEDS: Pregabalin 75 MG CAP PO SCH (08:46)
[2021-01-09] MEDS: Furosemide 20 MG TAB PO SCH (08:46)
[2021-01-09] MEDS: Cyanocobalamin (Vitamin B-12) 1,000 MCG TAB PO SCH (08:47)
[2021-01-09] MEDS: Lisinopril 5 MG TAB PO SCH (08:47)
[2021-01-09] MEDS: clonazePAM 0.5 MG TAB PO SCH (08:47)
[2021-01-09] MEDS: Cholecalciferol 1,000 UNITS (25 MCG) TAB PO SCH (08:47)
[2021-01-09 08:48] VITALS: BP 123/58
== END 2021-01-09 10:40 | disposition home or self-care (01) | DRG 948 ==
LOC: BURMED 15:00
PROVIDERS: ADMIT Family Medicine; ATTEND Family Medicine
DX: R53.81 Other malaise (principal); N39.0 Urinary tract infection, site not specified; E86.0 Dehydration; E11.9 Type 2 diabetes mellitus without complications; I10 Essential (primary) hypertension; E78.5 Hyperlipidemia, unspecified; F41.9 Anxiety disorder, unspecified; F32.9 Major depressive disorder, single episode, unspecified; Z91.14 Patient's other noncompliance with medication regimen; Z86.73 Personal history of transient ischemic attack (TIA), and cerebral infarction without residual deficits
CPT/HCPCS: 36416; 71046; J0696; J1650; J3490

== ENCOUNTER 2021-09-01 13:50 | Emergency (ER) | payer MEDICARE ==
[2021-09-01] MEDS ORDERED: Ketorolac Tromethamine 30 MG/ML VIAL ONE (14:34)
[2021-09-01 14:48] LABS: #Basophils 0.1 thou/uL (0.0-0.2); #Eosinphils 0.1 thou/uL (0.0-0.7); #Lymphocytes 1.1 thou/uL (1.20-3.40); #Monocytes 0.4 thou/uL (0.11-0.59); #Neutrophils 5.5 thou/uL (1.40-6.50); %Basophils 1.1 % (0.0-1.0); %Eosinophils 0.8 % (0.0-10.0); %Lymphocytes 15.9 % (21.0-51.0); %Neutrophils 76.2 % (42.0-75.0); Hemoglobin 12.5 g/dL (12.0-16.0); Mean Corpuscular HGB CONC 32.9 g/dL (32.0-36.0); Mean Corpuscular Hemoglobin 30.9 pg (27.0-31.0); Mean Corpuscular Volume 93.8 fL (78.0-98.0); Mean Platelet Volume 7.4 fL (7.4-10.4); Platelet Count 303 thou/uL (130-400); RBC Distribution Width 13.2 % (11.5-14.5); Red Blood Cell (RBC) Count 4.05 mill/uL (4.20-5.40); White Blood Cell (WBC) Count 7.2 thou/uL (4.8-10.8)
[2021-09-01 15:04] LABS: ALT (SGPT) 18 U/L (8-55); AST (SGOT) 31 U/L (5-34); Albumin 4.2 g/dL (3.4-4.8); Alkaline Phosphatase 36 U/L (40-110); Anion Gap 19 mmol/L (10-20); BUN (Urea Nitrogen) 16 mg/dL (9.8-20.1); Bilirubin, Total 0.9 mg/dL (0.2-1.2); Calc. Creatinine Clearance 0 mL/min (70-130); Calcium 10.3 mg/dL (7.8-10.44); Carbon Dioxide 22 mmol/L (23-31); Chloride 105 mmol/L (98-107); Globulin 3.4 g/dL (2.4-3.5); Glucose 119 mg/dL (83-110); Magnesium 1.3 mg/dL (1.6-2.6); Potassium 4.3 mmol/L (3.5-5.1); Protein, Total 7.6 g/dL (5.8-8.1); Sodium 142 mmol/L (136-145)
[2021-09-01] MEDS ORDERED: Magnesium 2 GM/50 ML BAG (IN WATER) ONE (15:26)
[2021-09-01 15:34] LABS: Bilirubin Moderate (Negative); Blood, Urine Negative (Negative); Clarity Clear (Clear); Glucose, Urine (Dipstick) Negative (Negative); Ketone, Urine Trace mg/dL (Negative); Leukocyte Negative (Negative); Nitrite Negative (Negative); Protein, Urine (Dipstick) 30 mg/dL (Neg-Trace)
[2021-09-01 15:59] LABS: Bacteria/HPF 1+ HPF (None Seen); RBC/HPF None Seen HPF (0-3); Transitional Epithelial 0-3 HPF (None Seen); WBC/HPF 0-3 HPF (0-3)
== END 2021-09-01 16:17 | disposition home or self-care (01) ==
LOC: BURERS 13:50
DX: R41.82 Altered mental status, unspecified (principal); E83.42 Hypomagnesemia; E11.40 Type 2 diabetes mellitus with diabetic neuropathy, unspecified; E78.5 Hyperlipidemia, unspecified; I10 Essential (primary) hypertension; M19.90 Unspecified osteoarthritis, unspecified site; Z86.73 Personal history of transient ischemic attack (TIA), and cerebral infarction without residual deficits
CPT/HCPCS: 70450; 71045; 80053; 81003; 81015; 83605; 83735; 83880; 84484; 85025; 93005; 96365; 96375; J1885; J3475

== ENCOUNTER 2023-09-27 09:56 | Emergency (ER) | payer MEDICARE ==
[2023-09-27 10:25] LABS: #Basophils 0.1 thou/uL (0.0-0.2); #Eosinphils 0.3 thou/uL (0.0-0.7); #Lymphocytes 1.3 thou/uL (1.20-3.40); #Monocytes 0.3 thou/uL (0.11-0.59); #Neutrophils 2.5 thou/uL (1.40-6.50); %Basophils 1.6 % (0.0-1.0); %Eosinophils 5.8 % (0.0-10.0); %Lymphocytes 28.6 % (21.0-51.0); %Monocytes 7.1 % (0.0-10.0); Hematocrit 38.4 % (36.0-47.0); Hemoglobin 12.6 g/dL (12.0-16.0); Mean Corpuscular HGB CONC 32.7 g/dL (32.0-36.0); Mean Corpuscular Hemoglobin 31.8 pg (27.0-31.0); Mean Corpuscular Volume 97.3 fl (78.0-98.0); Mean Platelet Volume 7.7 fL (7.4-10.4); Platelet Count 211 10x3/uL (130-400); RBC Distribution Width 12.7 % (11.5-14.5); Red Blood Cell (RBC) Count 3.95 mill/uL (4.20-5.40); White Blood Cell (WBC) Count 4.4 10x3/uL (4.8-10.8)
[2023-09-27] MEDS ORDERED: Lidocaine 1% PF 5 ML VIAL ONE ×2 (10:31→10:47)
[2023-09-27] MEDS ORDERED: cefTRIAXone (ROCEPHIN) 1 GM VIAL ONE ×2 (10:31→10:47)
[2023-09-27 10:42] LABS: ALT (SGPT) 16 U/L (8-55); AST (SGOT) 27 U/L (5-34); Albumin 4.1 g/dL (3.4-4.8); Alkaline Phosphatase 49 U/L (40-110); Anion Gap 14 mmol/L (10-20); BUN (Urea Nitrogen) 27 mg/dL (9.8-20.1); Bilirubin, Total 0.5 mg/dL (0.2-1.2); Calc. Creatinine Clearance 0 mL/min (70-130); Calcium 9.8 mg/dL (7.8-10.44); Carbon Dioxide 28 mmol/L (23-31); Chloride 105 mmol/L (98-107); Estimated GFR 54; Globulin 3.2 g/dL (2.4-3.5); Glucose 112 mg/dL (83-110); Potassium 4.6 mmol/L (3.5-5.1); Protein, Total 7.3 g/dL (5.8-8.1); Sodium 142 mmol/L (136-145)
== END 2023-09-27 11:22 | disposition home or self-care (01) ==
LOC: BURERS 09:56
DX: L03.115 Cellulitis of right lower limb (principal); L03.116 Cellulitis of left lower limb; E11.40 Type 2 diabetes mellitus with diabetic neuropathy, unspecified; I10 Essential (primary) hypertension
CPT/HCPCS: 36415; 36416; 80053; 85025; 96372; J0696

== ENCOUNTER 2023-11-02 23:38 | Emergency (ER) | payer MEDICARE ==
[2023-11-03 00:36] LABS: #Basophils 0.1 thou/uL (0.0-0.2); #Eosinphils 0.3 thou/uL (0.0-0.7); #Lymphocytes 1.8 thou/uL (1.20-3.40); #Monocytes 0.4 thou/uL (0.11-0.59); #Neutrophils 3.1 thou/uL (1.40-6.50); %Basophils 1.9 % (0.0-1.0); %Eosinophils 5.6 % (0.0-10.0); %Lymphocytes 31.1 % (21.0-51.0); %Monocytes 6.7 % (0.0-10.0); %Neutrophils 54.7 % (42.0-75.0); ALT (SGPT) 11 U/L (8-55); AST (SGOT) 22 U/L (5-34); Albumin 3.8 g/dL (3.4-4.8); Alkaline Phosphatase 49 U/L (40-110); Anion Gap 14 mmol/L (10-20); BUN (Urea Nitrogen) 19 mg/dL (9.8-20.1); Bilirubin, Total 0.4 mg/dL (0.2-1.2); Calc. Creatinine Clearance 0 mL/min (70-130); Calcium 9.1 mg/dL (7.8-10.44); Carbon Dioxide 25 mmol/L (23-31); Chloride 108 mmol/L (98-107); Estimated GFR 62; Globulin 3.2 g/dL (2.4-3.5); Glucose 119 mg/dL (83-110); Hematocrit 38.4 % (36.0-47.0); Hemoglobin 12.9 g/dL (12.0-16.0); Mean Corpuscular HGB CONC 33.5 g/dL (32.0-36.0); Mean Corpuscular Volume 95.5 fl (78.0-98.0); Mean Platelet Volume 8.7 fL (7.4-10.4); Platelet Count 200 10x3/uL (130-400); Red Blood Cell (RBC) Count 4.02 mill/uL (4.20-5.40); Sodium 142 mmol/L (136-145); White Blood Cell (WBC) Count 5.7 10x3/uL (4.8-10.8)
[2023-11-03 00:37] LABS: Troponin I Less than 0.010 ng/mL (< 0.028)
[2023-11-03] MEDS ORDERED: Ipratropium/Albuterol 3 ML NEB ONE (00:47)
[2023-11-03] MEDS ORDERED: Albuterol 2.5 MG (0.5 mL) NEB ONE (01:01)
== END 2023-11-03 01:24 | disposition home or self-care (01) ==
LOC: BURERS 23:38
DX: R06.02 Shortness of breath (principal); E11.40 Type 2 diabetes mellitus with diabetic neuropathy, unspecified; I10 Essential (primary) hypertension; E78.5 Hyperlipidemia, unspecified; Z79.899 Other long term (current) drug therapy; Z79.82 Long term (current) use of aspirin; Z79.84 Long term (current) use of oral hypoglycemic drugs
CPT/HCPCS: 71045; 80053; 83880; 84484; 85025; 93005; J7611; J7620